=== PATIENT | female | born 1940 | race Caucasian/White ===

== ENCOUNTER 2021-02-28 16:28 | Emergency (ER) | payer MEDICARE, SELFPAY ==
--- NOTE | ~2021-02-28 | CT_ITS ---
EXAMINATION: CT ANGIOGRAM OF THE CHEST WITH AND WITHOUT CONTRAST (CT PULMONARY ANGIOGRAM FOR PE) CLINICAL INFORMATION: Shortness of breath and chest pain. COMPARISON: None. TECHNIQUE: Prior to contrast administration, noncontrast localization images were obtained. Subsequently, multidetector volumetric imaging was performed from the thoracic inlet to below the diaphragms following the administration of 71 mL Omnipaque 350 intravenous contrast. No contrast reaction reported Sagittal, coronal, and MIP oblique sagittal reformatted images were obtained on the CT workstation, uploaded to PACS, and reviewed. This CT examination was performed using dose optimization techniques as appropriate, variously including the following: *Automated exposure control *Adjustment of mA and/or kV according to patient size (this includes techniques or standardized protocols for targeted exams where dose is matched to indication/reason for exam; i.e. extremities or head) *Use of iterative reconstruction technique Total exam dose-length product 445 mGy-cm FINDINGS: QUALITY OF STUDY/CONTRAST BOLUS: Suboptimal. Evaluation is limited due to motion. Furthermore, evaluation of segmental and subsegmental branches is not ideal due to obscuration from overlying airspace opacities. PULMONARY ARTERIES: No central pulmonary emboli. As above, evaluation of segmental branches is suboptimal. The main pulmonary trunk measures up to 3 cm. The main right pulmonary artery measures up to 2.7 cm and the left main pulmonary artery measures 2.3 cm. THORACIC AORTA: No aneurysm or dissection. Atherosclerotic disease. LUNG: There is advanced paraseptal emphysema with an upper lobe predominance and large subpleural bullae. There is bronchial wall thickening, mosaic attenuation of lung parenchyma and peripheral reticular opacities. There is irregular thickening of the pleura in the right upper lobe extending into the mediastinal pleura with associated calcifications. A few other more discrete areas of pleural nodularity/thickening are identified, for instance medially in the right lung base on image 34 of series 5 and laterally in the left upper lobe on image 10 of series 5 with an associated calcification. There are multiple pulmonary nodules, for example a 0.8 cm pulmonary nodule in the right middle lobe on image 25, a 1 cm pulmonary nodule in the right lung base on image 32 and a 1 cm pulmonary nodule in the right lung base abutting the diaphragm on image 33 (series 5). No pneumothorax. There are layering mucous secretions in the trachea. MEDIASTINUM: Cardiomegaly. No pericardial effusion. Right mediastinal and right hilar lymphadenopathy for instance measuring up to 1.6 cm adjacent to the right lower trachea (5:16) and 1.6 cm in the right hilar region (5:21). No evidence of septal bowing or right heart strain. CHEST WALL/AXILLA: No axillary or internal mammary lymphadenopathy. OSSEOUS STRUCTURES: No acute or suspicious osseous abnormality. UPPER ABDOMEN: There are multiple hypodense liver lesions, for instance the largest approximately measuring up to 7.1 cm in image 40 of series 5. No reflux of contrast into the hepatic veins to suggest elevated right heart pressures. CT/CT angio chest PE protocol IMPRESSION: No central pulmonary emboli. As above, evaluation of segmental and subsegmental branches is limited due to motion and overlying parenchymal abnormalities. No evidence of increased right-sided heart pressures. Irregular nodular thickening of the pleura at multiple sites, more pronounced in the right upper lobe with also multiple pulmonary nodules. These findings are concerning for a neoplastic process, possible pleural in origin with metastatic disease to the lung parenchyma or vice versa with a right apical lung mass with pleural extension. It is difficult to accurately establish the primary neoplasia. There is mediastinal and hilar lymphadenopathy, concerning for metastatic disease. Multiple hepatic hypodensities are also worrisome for metastatic disease. VTE: negative
--- NOTE | 2021-02-28 18:18 | ECG_ITS ---
Test Reason : Chest Pain Blood Pressure : / mmHG Vent. Rate : 077 BPM Atrial Rate : 077 BPM P-R Int : 220 ms QRS Dur : 084 ms QT Int : 376 ms P-R-T Axes : 069 -13 018 degrees QTc Int : 425 ms Sinus rhythm with 1st degree A-V block Left axis deviation Abnormal ECG No previous ECGs available Referred By: Kaycee Prince Electronically Signed By:KATTY BATRES MD
[2021-02-28 18:25] VITALS: PULSE 74; O2SAT 98; BMI 38.9
--- NOTE | 2021-02-28 18:39 | ED.SOB ---
HPI - SOB/Dyspnea General Chief Complaint: Dyspnea Stated Complaint: Chest pain/?Pulmonary embolism Time Seen by Provider: 02/28/21 18:17 Source: patient and family Mode of arrival: ambulatory Limitations: no limitations History of Present Illness HPI Narrative: 80-year-old female with a past medical history of COPD, p.r.n. oxygen at home, insulin-dependent diabetes, hypertension, hyperlipidemia here with shortness of breath increasing over the last week with right-sided chest pain. Patient tells me she has had this shortness of breath and chest pain for several months. She did have a CT scan of her chest 1 week ago without contrast which showed 2 right-sided pulmonary nodules. Her primary care doctor is arranging outpatient biopsies of the site. Over the last week increasing pain and shortness of breath. Unrelieved with Motrin Tylenol home. No cough, leg swelling or pain. Related Data Home Medications Medication Instructions Recorded Confirmed citalopram 20 mg tablet 2 tab PO DAILY 02/28/21 02/28/21 glipizide 5 mg tablet 2 tab PO BID 02/28/21 02/28/21 insulin glargine 100 unit/mL (3 48 unit SUBCUT BEDTIME 02/28/21 02/28/21 mL) subcutaneous pen (Lantus Solostar U-100 Insulin) ipratropium 0.5 mg-albuterol 3 mg 3 ml INHALATION QID 02/28/21 02/28/21 (2.5 mg base)/3 mL nebulization soln irbesartan 75 mg tablet 1 tab PO DAILY 02/28/21 02/28/21 metformin 500 mg tablet,extended 2 tab PO BID 02/28/21 02/28/21 release 24 hr montelukast 10 mg tablet 1 tab PO QPM 02/28/21 02/28/21 oxybutynin chloride 5 mg tablet 1 tab PO TID PRN 02/28/21 02/28/21 pantoprazole 40 mg tablet,delayed 1 tab PO DAILY 02/28/21 02/28/21 release pravastatin 40 mg tablet 1 tab PO DAILY 02/28/21 02/28/21 tiotropium bromide 2.5 2 puff PO DAILY 02/28/21 02/28/21 mcg/actuation mist for inhalation (Spiriva Respimat) Previous Rx's Medication Instructions Recorded oxycodone-acetaminophen 5 mg-325 1 tab PO Q6H PRN #15 tab 02/28/21 mg tablet (Percocet) Allergies Allergy/AdvReac Type Severity Reaction Status Date / Time No Known Drug Allergies Allergy Unknown Verified 02/28/21 19:46 Review of Systems Review of Systems: Yes all other systems are reviewed and are negative Constitutional: Constitutional: Reports no additional constitutional complaints, Denies body ache(s), Denies chills, Denies fever(s), Denies headache(s) and Denies weakness Eyes: Eyes: Reports no additional eye complaints and Denies change in vision ENT: Reports system reviewed and no additional complaints, except as documented, Denies dizziness, Denies headache(s), Denies nasal congestion, Denies nasal discharge and Denies neck pain Cardiovascular: Cardiovascular: Reports no additional cardiovascular complaints, Reports chest pain, Denies leg edema and Reports dyspnea Respiratory: Respiratory: Reports no additional respiratory complaints, Denies cough and Reports dyspnea Gastrointestinal: Gastrointestinal: Reports no additional gastrointestinal complaints, Denies abdominal pain, Denies diarrhea, Denies nausea and Denies vomiting Genitourinary: Genitourinary: Reports no additional female genitourinary complaints and Denies urinary incontinence Musculoskeletal: Musculoskeletal: Reports no additional musculoskeletal complaints, Denies back pain, Denies arthralgias, Denies joint swelling, Denies neck pain, Denies numbness and Denies tingling Integumentary/Breasts: Skin/Breast: Reports system reviewed and no additional complaints, except as docu and Denies rash Neurologic: Reports system reviewed and no additional complaints, except as documented, Denies Abnormal speech present, Denies dizziness, Denies headache(s), Denies numbness, Denies tingling and Denies weakness [facility] Past Medical History Attestation statement: The following information was validated with the patient. Source: old records reviewed and nursing notes reviewed Medical History COPD (chronic obstructive pulmonary disease) Diabetes mellitus, type 2 Hypertension Surgical History History of section Social History Social History Advance Directives: Yes Advance Directives Information Provided: No Advance Directives on File: No Physical Exam Vital Signs: Vital Signs: Last Vital Signs Pulse 74 02/28/21 18:25 Pulse Ox 98 02/28/21 18:25 Oxygen Flow Rate 2 02/28/21 18:25 Body Mass Index 38.9 Const: General: cooperative, healthy appearing, comfortable and no acute distress Orientation/consciousness: patient oriented x3 Limitations: no limitations HENMT: Head: Yes normal to inspection Ears: hearing grossly normal bilaterally General nose exam: Normal external nose present Face and sinus: Yes normal facial exam Mouth: Normal oral and palatal mucosa present Throat: Yes posterior oropharynx normal Eyes: General: appearance normal, both eyes and all related structures Pupils: Equal, round and reactive pupils present Neck: Neck: Yes normal visual inspection Chest: Chest palpation & inspection: normal inspection of the chest Resp: Other: Tachypnea with a rate of 22-24 Auscultation: clear to auscultation bilaterally Cardio: Rate: regular rate Rhythm: regular rhythm Peripheral pulses: Peripheral pulses 2+ throughout GI: Inspection: Yes normal to inspection Palpation (GI): Soft to palpation and nontender Auscultation: normal bowel sounds Back/Spine/Pelvis: Thoracic/Lumbar Spine: thoracic and lumbar spine normal to inspection Skin: General skin exam: no rashes or lesions noted Neuro: General: patient oriented x3, no focal motor deficits and normal sensation to monofilament Cranial nerves: Yes Equal, round and reactive pupils present Cognition (Neuro): normal cognition Speech: No Abnormal speech present Gait exam (Neuro): Normal gait present Motor exam (neuro): 5/5 motor strength present throughout Extrem: General: Yes normal to inspection, Yes no pedal edema and Yes no calf tenderness Course Course Course Narrative: 80-year-old female here with acute on chronic shortness of breath right-sided chest pain over the last week unrelieved with [id number] medications. Patient has known right-sided pulmonary nodules and is pending outpatient appointment to have the areas biopsy. On arrival the patient is tachypneic with a rate of 22-24. Her oxygen saturations are okay on room air. Clinically no signs or symptoms concerning for DVT. Will check chest x-ray, EKG, labs, CTA 2130- CT chest shows No central pulmonary emboli. As above, evaluation of segmental and subsegmental branches is limited due to motion and overlying parenchymal abnormalities. ? No evidence of increased right-sided heart pressures. ? Irregular nodular thickening of the pleura at multiple sites, more pronounced in the right upper lobe with also multiple pulmonary nodules. These findings are concerning for a neoplastic process, possible pleural in origin with metastatic disease to the lung parenchyma or vice versa with a right apical lung mass with pleural extension. It is difficult to accurately establish the primary neoplasia. ? There is mediastinal and hilar lymphadenopathy, concerning for metastatic disease. ? Multiple hepatic hypodensities are also worrisome for metastatic disease. - patient has supplemental oxygen at home. Her RA saturation is 96%. She is feeling improved after 1 dose of morphine here. family was called and they will come to the ER so we can discuss the images. 2144- Spoke at length with patient and her granddaughter about findings on CT scan. the patient's goal is to be home with her family and she does not want to be placed in a short-term rehab or admitted to the hospital. She had a dose of p.o. oxycodone here which does help her pain and therefore will send her home with a prescription for this. 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 MDM - SOB/Dyspnea MDM Narrative Medical decision making narrative: COPD exacerbation, PE, pneumonia, viral syndrome Medical Records Attestation: I reviewed the patient's medical records. Lab Data Attestation: I reviewed the patient's lab results. Result diagrams: 02/28/21 18:59 02/28/21 18:59 Labs: Lab Results 02/28/21 02/28/21 02/28/21 Range/Units 18:59 18:59 18:59 WBC 9.9 (4.8-10.8) X10*3/uL RBC 3.79 L (4.20-5.50) X10*6/uL Hgb 9.1 L (12.0-16.0) g/dl Hct 30.3 L (37.0-47.0) % MCV 79.9 L (80.0-98.0) fL MCH 24.0 L (27.0-33.0) pg MCHC 30.0 L (31.0-35.0) g/dl RDW 15.7 (11.0-16.0) % Plt Count 327 (160-400) X10*3/uL MPV 9.8 (9.4-12.3) fL Immature Gran % (Auto) 0.2 (0.0-0.4) % Neut % (Auto) 54.9 (45-73) % Lymph % (Auto) 33.4 (20-40) % Ross % (Auto) 6.7 (2-11) % Eos % (Auto) 4.2 H (0-4) % Baso % (Auto) 0.6 (0-2) % Lymph # (Auto) 3.3 (1.2-4.9) X10*3/uL Ross # (Auto) 0.7 (0.1-1.2) X10*3/uL Eos # (Auto) 0.4 (0.0-0.4) X10*3/uL Baso # (Auto) 0.1 (0.0-0.2) X10*3/uL Abs Immat Gran (auto) 0.02 (0.00-0.03) X10*3/uL Absolute Neuts (auto) 5.4 (2.0-8.3) x10*3/uL Absolute Nucleated RBC 0.000 (0.0-0.012) X10*3/uL Nucleated RBC % (auto) 0.0 (0.0-0.2) /100WBC PT 12.2 (9.9-13.0) SEC INR 1.1 (0.9-1.1) Sodium 142 (135-145) mmol/L Potassium 4.6 (3.3-5.1) mmol/L Chloride 109 H (96-108) mmol/L Carbon Dioxide 23 (22-29) mmol/L Anion Gap 15 (12-20) BUN 18 H (9-16) mg/dL Creatinine 0.76 (0.5-1.4) mg/dL Estim Creat Clear Calc 67.7 Estimated GFR > 60 Random Glucose 75 (60-115) mg/dL Calcium 10.0 (8.4-10.2) mg/dL Magnesium 1.9 (1.6-2.6) mg/dL Total Bilirubin 0.2 (0.0-1.0) mg/dL Direct Bilirubin < 0.2 (0.0-0.5) mg/dL AST 19 (5-31) U/L ALT 15 (0-31) U/L Alkaline Phosphatase 71 (39-117) U/L Troponin I High Sens (<3.5-17.0) ng/L Total Protein 7.1 (6.5-8.0) g/dL Albumin 3.6 (3.5-5.0) g/dL COVID-19 (THEA) (Negative) COVID-19 Clin Com 02/28/21 02/28/21 Range/Units 18:59 18:59 WBC (4.8-10.8) X10*3/uL RBC (4.20-5.50) X10*6/uL Hgb (12.0-16.0) g/dl Hct (37.0-47.0) % MCV (80.0-98.0) fL MCH (27.0-33.0) pg MCHC (31.0-35.0) g/dl RDW (11.0-16.0) % Plt Count (160-400) X10*3/uL MPV (9.4-12.3) fL Immature Gran % (Auto) (0.0-0.4) % Neut % (Auto) (45-73) % Lymph % (Auto) (20-40) % Ross % (Auto) (2-11) % Eos % (Auto) (0-4) % Baso % (Auto) (0-2) % Lymph # (Auto) (1.2-4.9) X10*3/uL Ross # (Auto) (0.1-1.2) X10*3/uL Eos # (Auto) (0.0-0.4) X10*3/uL Baso # (Auto) (0.0-0.2) X10*3/uL Abs Immat Gran (auto) (0.00-0.03) X10*3/uL Absolute Neuts (auto) (2.0-8.3) x10*3/uL Absolute Nucleated RBC (0.0-0.012) X10*3/uL Nucleated RBC % (auto) (0.0-0.2) /100WBC PT (9.9-13.0) SEC INR (0.9-1.1) Sodium (135-145) mmol/L Potassium (3.3-5.1) mmol/L Chloride (96-108) mmol/L Carbon Dioxide (22-29) mmol/L Anion Gap (12-20) BUN (9-16) mg/dL Creatinine (0.5-1.4) mg/dL Estim Creat Clear Calc Estimated GFR Random Glucose (60-115) mg/dL Calcium (8.4-10.2) mg/dL Magnesium (1.6-2.6) mg/dL Total Bilirubin (0.0-1.0) mg/dL Direct Bilirubin (0.0-0.5) mg/dL AST (5-31) U/L ALT (0-31) U/L Alkaline Phosphatase (39-117) U/L Troponin I High Sens 4.4 (<3.5-17.0) ng/L Total Protein (6.5-8.0) g/dL Albumin (3.5-5.0) g/dL COVID-19 (THEA) Negative (Negative) COVID-19 Clin Com See Note Imaging Data CT scan - chest: Attestation: I personally reviewed and interpreted this imaging study as follows: Radiologist's impression: No central pulmonary emboli. As above, evaluation of segmental and subsegmental branches is limited due to motion and overlying parenchymal abnormalities. ? No evidence of increased right-sided heart pressures. ? Irregular nodular thickening of the pleura at multiple sites, more pronounced in the right upper lobe with also multiple pulmonary nodules. These findings are concerning for a neoplastic process, possible pleural in origin with metastatic disease to the lung parenchyma or vice versa with a right apical lung mass with pleural extension. It is difficult to accurately establish the primary neoplasia. ? There is mediastinal and hilar lymphadenopathy, concerning for metastatic disease. ? Multiple hepatic hypodensities are also worrisome for metastatic disease. ECG Data Attestation: I personally reviewed and interpreted this ECG as follows: ECG interpretation date: 02/28/21 ECG interpretation time: 17:01 Interpretation: sinus rhythm with a first-degree AV block, normal QRS, normal QT, Discharge Plan Discharge Clinical Impression: Abnormal CT scan, chest Patient Disposition: Home, Self-Care Instructions: Computed Tomography Scan (ED) Additional Instructions: Your CT scan shows a mass in the right side of the chest that is concerning for cancer. You also has lymph nodes around it and several lesions on the liver that are concerning for cancer you need to follow-up with Oncology use your supplemental oxygen at home as needed return here if you feel like her pain is not well controlled at home or if you have increasing oxygen requirement Prescriptions: New oxycodone-acetaminophen [Percocet] 5-325 mg tablet 1 tab PO Q6H PRN (Reason: pain) Qty: 15 RF: 0 No Action ipratropium-albuterol 0.5 mg-3 mg(2.5 mg base)/3 mL solution for nebulization 3 ml inhalation QID RF: 0 pravastatin 40 mg tablet 1 tab PO DAILY RF: 0 citalopram 20 mg tablet 2 tab PO DAILY RF: 0 pantoprazole 40 mg tablet,delayed release (DR/EC) 1 tab PO DAILY RF: 0 irbesartan 75 mg tablet 1 tab PO DAILY RF: 0 montelukast 10 mg tablet 1 tab PO QPM RF: 0 oxybutynin chloride 5 mg tablet 1 tab PO TID PRN (Reason: URINARY SYMPTOMS) RF: 0 metformin 500 mg tablet extended release 24 hr 2 tab PO BID RF: 0 glipizide 5 mg tablet 2 tab PO BID RF: 0 Lantus Solostar U-100 Insulin 100 unit/mL (3 mL) insulin pen 48 unit subcut BEDTIME RF: 0 Spiriva Respimat 2.5 mcg/actuation mist 2 puff PO DAILY RF: 0 Referrals: Ingrid Mendoza MD [Physician] - 2 days Interventions: ED Discharge Assessment Last Done: 02/28/21 22:45 Discharge Date/Time: 02/28/21 22:45
[2021-02-28 19:08] LABS: MANUAL DIFF FLAG NO
[2021-02-28 19:16] LABS: Basophils Absolute Auto 0.1 X10*3/uL (0.0-0.2); Basophils Percent Auto 0.6 % (0-2); Eosinophils Absolute Auto 0.4 X10*3/uL (0.0-0.4); Eosinophils Percent Auto 4.2 % (0-4); Hematocrit 30.3 % (37.0-47.0); Hemoglobin 9.1 g/dl (12.0-16.0); Imm Gran Abs Auto 0.02 X10*3/uL (0.00-0.03); Imm Gran Pct Auto 0.2 % (0.0-0.4); Lymphocytes Absolute Auto 3.3 X10*3/uL (1.2-4.9); Lymphocytes Percent Auto 33.4 % (20-40); Mean Corpuscular Volume 79.9 fL (80.0-98.0); Mean Platelet Volume 9.8 fL (9.4-12.3); Monocytes Absolute Auto 0.7 X10*3/uL (0.1-1.2); Monocytes Percent Auto 6.7 % (2-11); Neutrophils Absolute Auto 5.4 x10*3/uL (2.0-8.3); Neutrophils Percent Auto 54.9 % (45-73); Platelet Count 327 X10*3/uL (160-400); Red Blood Count 3.79 X10*6/uL (4.20-5.50); Red Cell Distribution Width 15.7 % (11.0-16.0); White Blood Count 9.9 X10*3/uL (4.8-10.8)
[2021-02-28 19:19] LABS: INTERNATIONAL NORM RATIO 1.1 (0.9-1.1); Prothrombin Time 12.2 SEC (9.9-13.0)
[2021-02-28] MEDS: Morphine Sulfate 4 MG/ML CARTRIDGE IVPUSH (19:21)
[2021-02-28 19:23] LABS: COVID-19 Test Negative (Negative)
[2021-02-28 19:35] LABS: Alanine Aminotransferase 15 U/L (0-31); Albumin Level 3.6 g/dL (3.5-5.0); Alkaline Phosphatase 71 U/L (39-117); Anion Gap 15 (12-20); Aspartate Amino Transferase 19 U/L (5-31); Bilirubin Direct < 0.2 mg/dL (0.0-0.5); Bilirubin Total 0.2 mg/dL (0.0-1.0); Blood Urea Nitrogen 18 mg/dL (9-16); Carbon Dioxide 23 mmol/L (22-29); Chloride 109 mmol/L (96-108); Creatinine Clr Calc Pharmacy 67.7; Estimated Glomerular Filt Rate > 60; Glucose Random 75 mg/dL (60-115); Magnesium 1.9 mg/dL (1.6-2.6); Potassium 4.6 mmol/L (3.3-5.1); Sodium 142 mmol/L (135-145); Total Protein 7.1 g/dL (6.5-8.0)
[2021-02-28 19:38] LABS: Troponin-I High Sensitivity 4.4 ng/L (<3.5-17.0)
[2021-02-28] MEDS: iohexoL 350 MG/ML 100 ML INFUS..BTL IV (20:30)
--- NOTE | 2021-02-28 20:52 | PHA.MEDREC ---
Pharmacy Consult ? Medication Reconciliation Pharmacy has completed the medication reconciliation.
[2021-02-28] MEDS: Acetaminophen 325 MG TABLET 650 MG PO (22:26)
[2021-02-28] MEDS: oxyCODONE HCl Immed Release 5 MG TABLET PO (22:26)
== END 2021-02-28 22:45 | disposition home or self-care (01) ==
PROVIDERS: Nurse Practitioner Family; Emergency Provider Emergency Medicine; PCP Internal Medicine
DX: R07.9 Chest pain, unspecified (principal); R91.8 Other nonspecific abnormal finding of lung field; K76.9 Liver disease, unspecified; R06.82 Tachypnea, not elsewhere classified; Z20.822 Contact with and (suspected) exposure to COVID-19; E11.9 Type 2 diabetes mellitus without complications; I10 Essential (primary) hypertension; E78.5 Hyperlipidemia, unspecified; J44.9 Chronic obstructive pulmonary disease, unspecified; Z99.81 Dependence on supplemental oxygen; Z79.4 Long term (current) use of insulin; Z79.02 Long term (current) use of antithrombotics/antiplatelets; Z79.899 Other long term (current) drug therapy
CPT/HCPCS: 36415; 71275; 80048; 80076; 83735; 84484; 85025; 85610; 87635; 93005; 96374; 99283; 99284; J2270; Q9967

== ENCOUNTER 2021-03-11 07:11 | Day surgery (SDC) | payer MEDICARE, SELFPAY ==
--- NOTE | ~2021-03-11 | US_ITS ---
EXAMINATION: ULTRASOUND-GUIDED LIVER BIOPSY CLINICAL INFORMATION: Liver lesions. History of lung and breast cancer. COMPARISON: Previous chest CTA February 2021. TECHNIQUE: Procedure and risks and benefits including bleeding and infection were discussed with the patient and informed consent was obtained. The patient was positioned in the semiupright position and turned slightly to the left. The right upper quadrant was prepped and draped in the usual sterile fashion. The skin and soft tissues were anesthetized with 1% lidocaine plain. Using ultrasound guidance and a coaxial system, access to the lesion high in the right lobe of the liver was obtained. Four 20-gauge core biopsies were obtained. One additional 22-gauge FNA specimen was also obtained. The patient received Versed 1 mg and fentanyl 50 mcg intravenously during the procedure. Conscious sedation was provided by registered nurse under my direct supervision using continuous hemodynamic monitoring. Total sedation time was 20 minutes. FINDINGS: There is a 6.8 x 6 x 5.6 cm hypoechoic lesion in the high right lobe of the liver that was targeted for biopsy and fine-needle aspiration. US/US biopsy liver IMPRESSION: Ultrasound-guided liver biopsy and fine-needle aspiration.
[2021-03-11 07:49] VITALS: BMI 38.9
[2021-03-11 08:03] LABS: Glucose, Whole Blood 74 mg/dL (60-115)
[2021-03-11 09:20] LABS: Glucose, Whole Blood 106 mg/dL (60-115)
--- NOTE | 2021-03-11 10:10 | HO.RADPN ---
RADIOLOGY Narrative Narrative: right lobe liver 20 g core biopsy and 22 g fna. no complication.
[2021-03-11 10:22] VITALS: BP 137/64; PULSE 62; RESP 16; TEMP 37; O2SAT 98
[2021-03-11 10:37] VITALS: BP 135/62; PULSE 72; RESP 16; O2SAT 97
[2021-03-11 11:07] VITALS: BP 141/59; PULSE 80; RESP 16; O2SAT 97
[2021-03-11 11:37] VITALS: BP 154/58; PULSE 78; RESP 16; O2SAT 97
[2021-03-11 12:06] VITALS: BP 144/56; PULSE 90; RESP 22; TEMP 36.7; O2SAT 95
== END 2021-03-11 12:39 | disposition home or self-care (01) ==
PROVIDERS: Radiology Diagnostic Radiology; PCP Internal Medicine; Visit Provider Internal Medicine
DX: C78.7 Secondary malignant neoplasm of liver and intrahepatic bile duct (principal); C34.90 Malignant neoplasm of unspecified part of unspecified bronchus or lung; R16.0 Hepatomegaly, not elsewhere classified; J44.9 Chronic obstructive pulmonary disease, unspecified; I10 Essential (primary) hypertension; E11.9 Type 2 diabetes mellitus without complications; Z79.4 Long term (current) use of insulin; Z79.899 Other long term (current) drug therapy; Z79.51 Long term (current) use of inhaled steroids; Z87.891 Personal history of nicotine dependence
CPT/HCPCS: 47000; 76942; 82947; 88173; 88305; 88307; 88313; 88341; 88342; 99152; 99153; J2250; J3010

== ENCOUNTER 2021-03-16 10:37 | Outpatient (REF) | payer MEDICARE, SELFPAY ==
--- NOTE | ~2021-03-16 | US_ITS ---
EXAMINATION: US VENOUS ULTRASOUND WITH DOPPLER LOWER EXTREMITY, LEFT CLINICAL INFORMATION: Metastatic lung cancer COMPARISON: Swelling and skin changes. TECHNIQUE: Ultrasound of the deep veins is performed from the hip to the calf with compression sonography and color and pulse Doppler assessment. Spectral analysis with color-flow imaging is performed. FINDINGS: There is normal venous compression and respiratory variation and augmented flow. The visualized common femoral vein, superficial femoral vein, profunda femoral vein, popliteal vein are patent. The calf veins are not well visualized. There is no Singh's cyst. US/US venous duplex LE LT IMPRESSION: Limited exam. No DVT demonstrated in the left lower extremity. Calf veins are not well visualized.
== END 2021-03-16 10:38 | disposition home or self-care (01) ==
LOC: HO.US 10:37
PROVIDERS: Visit Provider Internal Medicine
DX: M79.89 Other specified soft tissue disorders (principal); C34.90 Malignant neoplasm of unspecified part of unspecified bronchus or lung
CPT/HCPCS: 93971

== ENCOUNTER 2021-03-23 11:14 | Observation (INO) | payer MEDICARE, SELFPAY ==
[2021-03-23] VITALS (9 sets, daily range): BP systolic 122–172; BP diastolic 41–77; PULSE 60–75; RESP 12–19; TEMP 36.4–36.9; O2SAT 96–98; BMI 38.6
--- NOTE | ~2021-03-23 | XR_ITS ---
EXAMINATION: XR CHEST CLINICAL INFORMATION: Syncope COMPARISON: CT scan of February 28, 2021 TECHNIQUE: AP portable view of the chest was obtained. FINDINGS: There is right apical pleural thickening seen as well as a right upper lobe density consistent with mass. No pneumothorax identified. No significant pleural effusion. There is some left basilar disease present likely related to atelectasis. There is emphysematous changes seen within the upper lobes bilaterally. Heart normal size. No evidence of pulmonary edema. XR/XR chest 1V IMPRESSION: Right upper lobe pleural thickening and question mass. Left base disease likely related to atelectasis. Emphysematous change bilaterally.
--- NOTE | 2021-03-23 11:25 | ED_ITS ---
HPI - General Adult General Chief complaint: General Medical Stated complaint: Syncope Time Seen by Provider: 03/23/21 11:19 Source: patient Mode of arrival: ambulatory Limitations: no limitations History of Present Illness HPI narrative: 80-year-old female came in from outpatient chemotherapy for feeling dizzy and that being diaphoretic. 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 Patient in the ED is back to her baseline normal, blood sugar measured 55. Related Data Home Medications Medication Instructions Recorded Confirmed citalopram 20 mg tablet 2 tab PO DAILY 02/28/21 03/17/21 glipizide 5 mg tablet 2 tab PO BID 02/28/21 03/17/21 insulin glargine 100 unit/mL (3 48 unit SUBCUT BEDTIME 02/28/21 03/17/21 mL) subcutaneous pen (Lantus Solostar U-100 Insulin) ipratropium 0.5 mg-albuterol 3 mg 3 ml INHALATION QID 02/28/21 03/17/21 (2.5 mg base)/3 mL nebulization soln irbesartan 75 mg tablet 1 tab PO DAILY 02/28/21 03/17/21 metformin 500 mg tablet,extended 2 tab PO BID 02/28/21 03/17/21 release 24 hr montelukast 10 mg tablet 1 tab PO QPM 02/28/21 03/17/21 oxybutynin chloride 5 mg tablet 1 tab PO TID PRN 02/28/21 03/17/21 pantoprazole 40 mg tablet,delayed 1 tab PO DAILY 02/28/21 03/17/21 release pravastatin 40 mg tablet 1 tab PO DAILY 02/28/21 03/17/21 tiotropium bromide 2.5 2 puff PO DAILY 02/28/21 03/17/21 mcg/actuation mist for inhalation (Spiriva Respimat) Previous Rx's Medication Instructions Recorded ondansetron 8 mg disintegrating 8 mg PO Q8H PRN #60 tab 03/15/21 tablet oxycodone 5 mg tablet 5 mg PO Q4H PRN #60 tab 03/22/21 Allergies Allergy/AdvReac Type Severity Reaction Status Date / Time No Known Drug Allergies Allergy Unknown Verified 03/11/21 07:49 Review of Systems Review of Systems: All other systems are reviewed and are negative Constitutional: Reports as per HPI and Reports no additional constitutional complaints Eyes: Reports as per HPI and Reports no additional eye complaints Reports system reviewed and no additional complaints, except as documented Cardiovascular: Reports as per HPI and Reports no additional cardiovascular complaints Respiratory: Reports as per HPI and Reports no additional respiratory complaints Gastrointestinal: Reports as per HPI and Reports no additional gastrointestinal complaints Genitourinary: Reports no additional female genitourinary complaints Musculoskeletal: Reports no additional musculoskeletal complaints Skin/Breast: Reports system reviewed and no additional complaints, except as docu Psychiatric: Reports no additional psychiatric complaints Endocrine: Reports no additional endocrine complaints Hematologic/Lymphatic: Reports no additional hematologic/lymphatic complaints Allergic/Immunologic: Reports no additional allergic/immunologic complaints Reports system reviewed and no additional complaints, except as documented and Reports Abnormal speech present [facility] Past Medical History Medical History COPD (chronic obstructive pulmonary disease) Diabetes mellitus, type 2 Hypertension Surgical History History of section Family History Family History Mother Breast cancer Diabetes HTN (hypertension) Father Lung cancer Social History Social History Alcohol intake: former Patient Tobacco Use Status: Former Tobacco user Tobacco use type: Cigarette Advance Directives: No Advance Directives Information Provided: No Physical Exam Vital Signs: Vital Signs: Last Vital Signs Temp 98 F 03/23/21 11:18 Pulse 61 03/23/21 12:08 Resp 18 03/23/21 12:08 BP 149/59 H 03/23/21 12:08 Pulse Ox 96 03/23/21 12:08 Oxygen Flow Rate 2 03/23/21 11:18 BMI result Body Mass Index 38.6 Vital signs have been reviewed as appeared to be correct. Blood pressure normal. Heart rate normal. Respiration rate normal. Temperature normal. Oxygen saturation normal. Appearance: Alert. Oriented X3. No acute distress. Head: Normal external exam. Normocephalic. Atraumatic. No Ramos signs noted. No raccoon eyes noted Eyes: PERRLA. EOMI. Conjunctiva and sclera normal. Eyelids normal. ENT: TM's Normal. Pharynx normal. Uvula midline. Moist mucous membranes. No trismus noted. No drooling noted. No muffled voice noted. Neck: Normal inspection. Neck supple. FROM. No adenopathy. Thyroid Normal. No meningeal signs. No neck mass noted. CVS: Normal heart rate and rhythm. Heart sound normal. No murmurs noted. Pulses normal throughout. Respiratory: No respiratory distress. Painless inspiration. Breath sounds normal. No wheezes/rales/rhonchi noted. Chest nontender. No accessory muscle usage noted or decreased air movement noted. Abdomen: Soft and nontender. Bowel sounds normal in all 4 quadrants. No distention noted. No organomegaly noted. No visible injury noted. Back: No CVA tenderness. Full range of motion noted. Skin: Skin warm and dry. Normal skin color. Normal skin turgor. No rashes/lesions/lacerations noted. Extremities: No lower extremity edema. Extremities exhibit normal range of motion. Extremities nontender. Neuro: Oriented X 3. Cranial nerve exam: II-XII are grossly intact No motor deficit. No sensory deficit. Reflexes normal. Course Course Course Narrative: Assessment and plan. 80-year-old female with history of diabetes controlled with insulin/glip izide/Glucophage, patient presented from the oncology office after having symptoms of hypoglycemia and found to have sugar of 32, patient partially improved after was given juice, patient was given a regular diet with high carbohydrate in the emergency department patient tolerated it well, and postp randial blood sugar remained low, patient will be started on D5W as a maintenance IV, patient will be observed in the hospital for persistent hypoglycemia which is likely due to glipizide and or long-acting insulin that she takes at night. No source of infection to explain otherwise hypoglycemia. Medical Decision Making Medical Records Medical records reviewed: Yes I reviewed the patient's medical records. Lab Data Lab results reviewed: Yes I reviewed the patient's lab results. Result diagrams: 03/23/21 11:52 03/23/21 11:52 Labs: Lab Results 03/23/21 03/23/21 03/23/21 Range/Units 11:52 11:52 11:52 WBC 11.6 H (4.8-10.8) X10*3/uL RBC 4.22 (4.20-5.50) X10*6/uL Hgb 10.3 L (12.0-16.0) g/dl Hct 34.1 L (37.0-47.0) % MCV 80.8 (80.0-98.0) fL MCH 24.4 L (27.0-33.0) pg MCHC 30.2 L (31.0-35.0) g/dl RDW 17.3 H (11.0-16.0) % Plt Count 286 (160-400) X10*3/uL MPV 9.5 (9.4-12.3) fL Immature Gran % (Auto) 0.6 H (0.0-0.4) % Neut % (Auto) 72.8 (45-73) % Lymph % (Auto) 22.7 (20-40) % [place] % (Auto) 2.8 (2-11) % Eos % (Auto) 0.9 (0-4) % Baso % (Auto) 0.2 (0-2) % Lymph # (Auto) 2.6 (1.2-4.9) X10*3/uL [place] # (Auto) 0.3 (0.1-1.2) X10*3/uL Eos # (Auto) 0.1 (0.0-0.4) X10*3/uL Baso # (Auto) 0.0 (0.0-0.2) X10*3/uL Abs Immat Gran (auto) 0.07 H (0.00-0.03) X10*3/uL Absolute Neuts (auto) 8.5 H (2.0-8.3) x10*3/uL Absolute Nucleated RBC 0.000 (0.0-0.012) X10*3/uL Nucleated RBC % (auto) 0.0 (0.0-0.2) /100WBC Sodium 140 (135-145) mmol/L Potassium 4.2 (3.3-5.1) mmol/L Chloride 107 (96-108) mmol/L Carbon Dioxide 26 (22-29) mmol/L Anion Gap 11 L (12-20) BUN 20 H D (9-16) mg/dL Creatinine 0.78 (0.5-1.4) mg/dL Estim Creat Clear Calc 65.7 Estimated GFR > 60 POC Glucose (60-115) mg/dL Random Glucose 36 L* (60-115) mg/dL Calcium 9.7 D (8.4-10.2) mg/dL Total Bilirubin 0.3 (0.0-1.0) mg/dL Direct Bilirubin 0.2 (0.0-0.5) mg/dL AST 15 (5-31) U/L ALT 9 (0-31) U/L Alkaline Phosphatase 58 (39-117) U/L Troponin I High Sens 4.4 (<3.5-17.0) ng/L B-Natriuretic Peptide (<100) pg/mL Total Protein 7.2 (6.5-8.0) g/dL Albumin 3.5 (3.5-5.0) g/dL Lipase 41 (8-78) U/L COVID-19 (THEA) (Negative) COVID-19 Clin Com 03/23/21 03/23/21 03/23/21 Range/Units 11:52 11:52 12:48 WBC (4.8-10.8) X10*3/uL RBC (4.20-5.50) X10*6/uL Hgb (12.0-16.0) g/dl Hct (37.0-47.0) % MCV (80.0-98.0) fL MCH (27.0-33.0) pg MCHC (31.0-35.0) g/dl RDW (11.0-16.0) % Plt Count (160-400) X10*3/uL MPV (9.4-12.3) fL Immature Gran % (Auto) (0.0-0.4) % Neut % (Auto) (45-73) % Lymph % (Auto) (20-40) % [place] % (Auto) (2-11) % Eos % (Auto) (0-4) % Baso % (Auto) (0-2) % Lymph # (Auto) (1.2-4.9) X10*3/uL [place] # (Auto) (0.1-1.2) X10*3/uL Eos # (Auto) (0.0-0.4) X10*3/uL Baso # (Auto) (0.0-0.2) X10*3/uL Abs Immat Gran (auto) (0.00-0.03) X10*3/uL Absolute Neuts (auto) (2.0-8.3) x10*3/uL Absolute Nucleated RBC (0.0-0.012) X10*3/uL Nucleated RBC % (auto) (0.0-0.2) /100WBC Sodium (135-145) mmol/L Potassium (3.3-5.1) mmol/L Chloride (96-108) mmol/L Carbon Dioxide (22-29) mmol/L Anion Gap (12-20) BUN (9-16) mg/dL Creatinine (0.5-1.4) mg/dL Estim Creat Clear Calc Estimated GFR POC Glucose 55 L* (60-115) mg/dL Random Glucose (60-115) mg/dL Calcium (8.4-10.2) mg/dL Total Bilirubin (0.0-1.0) mg/dL Direct Bilirubin (0.0-0.5) mg/dL AST (5-31) U/L ALT (0-31) U/L Alkaline Phosphatase (39-117) U/L Troponin I High Sens (<3.5-17.0) ng/L B-Natriuretic Peptide 242 H (<100) pg/mL Total Protein (6.5-8.0) g/dL Albumin (3.5-5.0) g/dL Lipase (8-78) U/L COVID-19 (THEA) Negative (Negative) COVID-19 Clin Com See Note 03/23/21 Range/Units 13:08 WBC (4.8-10.8) X10*3/uL RBC (4.20-5.50) X10*6/uL Hgb (12.0-16.0) g/dl Hct (37.0-47.0) % MCV (80.0-98.0) fL MCH (27.0-33.0) pg MCHC (31.0-35.0) g/dl RDW (11.0-16.0) % Plt Count (160-400) X10*3/uL MPV (9.4-12.3) fL Immature Gran % (Auto) (0.0-0.4) % Neut % (Auto) (45-73) % Lymph % (Auto) (20-40) % [place] % (Auto) (2-11) % Eos % (Auto) (0-4) % Baso % (Auto) (0-2) % Lymph # (Auto) (1.2-4.9) X10*3/uL [place] # (Auto) (0.1-1.2) X10*3/uL Eos # (Auto) (0.0-0.4) X10*3/uL Baso # (Auto) (0.0-0.2) X10*3/uL Abs Immat Gran (auto) (0.00-0.03) X10*3/uL Absolute Neuts (auto) (2.0-8.3) x10*3/uL Absolute Nucleated RBC (0.0-0.012) X10*3/uL Nucleated RBC % (auto) (0.0-0.2) /100WBC Sodium (135-145) mmol/L Potassium (3.3-5.1) mmol/L Chloride (96-108) mmol/L Carbon Dioxide (22-29) mmol/L Anion Gap (12-20) BUN (9-16) mg/dL Creatinine (0.5-1.4) mg/dL Estim Creat Clear Calc Estimated GFR POC Glucose 52 L* (60-115) mg/dL Random Glucose (60-115) mg/dL Calcium (8.4-10.2) mg/dL Total Bilirubin (0.0-1.0) mg/dL Direct Bilirubin (0.0-0.5) mg/dL AST (5-31) U/L ALT (0-31) U/L Alkaline Phosphatase (39-117) U/L Troponin I High Sens (<3.5-17.0) ng/L B-Natriuretic Peptide (<100) pg/mL Total Protein (6.5-8.0) g/dL Albumin (3.5-5.0) g/dL Lipase (8-78) U/L COVID-19 (THEA) (Negative) COVID-19 Clin Com Imaging Data Chest x-ray: Attestation: I personally reviewed and interpreted this imaging study as follows: Radiologist's impression: Right upper lobe pleural thickening and question mass. ? Left base disease likely related to atelectasis. ? Emphysematous change bilaterally. ? Discharge Plan Discharge Clinical Impression: Hypoglycemia due to insulin, Hypoglycemia secondary to sulfonylurea Patient Disposition: Admitted As Inpatient Prescriptions: No Action ipratropium-albuterol 0.5 mg-3 mg(2.5 mg base)/3 mL solution for nebulization 3 ml inhalation QID RF: 0 pravastatin 40 mg tablet 1 tab PO DAILY RF: 0 citalopram 20 mg tablet 2 tab PO DAILY RF: 0 pantoprazole 40 mg tablet,delayed release (DR/EC) 1 tab PO DAILY RF: 0 irbesartan 75 mg tablet 1 tab PO DAILY RF: 0 montelukast 10 mg tablet 1 tab PO QPM RF: 0 oxybutynin chloride 5 mg tablet 1 tab PO TID PRN (Reason: URINARY SYMPTOMS) RF: 0 metformin 500 mg tablet extended release 24 hr 2 tab PO BID RF: 0 glipizide 5 mg tablet 2 tab PO BID RF: 0 Lantus Solostar U-100 Insulin 100 unit/mL (3 mL) insulin pen 48 unit subcut BEDTIME RF: 0 Spiriva Respimat 2.5 mcg/actuation mist 2 puff PO DAILY RF: 0 ondansetron 8 mg Tablet,Disintegrating 8 mg PO Q8H PRN (Reason: nausea) Qty: 60 RF: 3 oxycodone 5 mg Tablet 5 mg PO Q4H PRN (Reason: Pain) Qty: 60 RF: 0
--- NOTE | 2021-03-23 11:29 | ECG_ITS ---
Test Reason : syncope Blood Pressure : / mmHG Vent. Rate : 062 BPM Atrial Rate : 062 BPM P-R Int : 186 ms QRS Dur : 092 ms QT Int : 432 ms P-R-T Axes : 066 -04 022 degrees QTc Int : 438 ms Normal sinus rhythm Cannot rule out Anterior infarct , age undetermined Abnormal ECG When compared with ECG of 28-FEB-2021 17:01, [place] interval has decreased Referred By: Leonard Bernal Electronically Signed By:NURY SINHA MD
[2021-03-23 11:56] LABS: MANUAL DIFF FLAG NO
[2021-03-23 11:58] LABS: Basophils Percent Auto 0.2 % (0-2); Eosinophils Absolute Auto 0.1 X10*3/uL (0.0-0.4); Eosinophils Percent Auto 0.9 % (0-4); Hematocrit 34.1 % (37.0-47.0); Hemoglobin 10.3 g/dl (12.0-16.0); Imm Gran Abs Auto 0.07 X10*3/uL (0.00-0.03); Imm Gran Pct Auto 0.6 % (0.0-0.4); Lymphocytes Absolute Auto 2.6 X10*3/uL (1.2-4.9); Lymphocytes Percent Auto 22.7 % (20-40); Mean Corpuscular HGB Conc 30.2 g/dl (31.0-35.0); Mean Corpuscular Hemoglobin 24.4 pg (27.0-33.0); Mean Corpuscular Volume 80.8 fL (80.0-98.0); Mean Platelet Volume 9.5 fL (9.4-12.3); Monocytes Absolute Auto 0.3 X10*3/uL (0.1-1.2); Monocytes Percent Auto 2.8 % (2-11); Neutrophils Absolute Auto 8.5 x10*3/uL (2.0-8.3); Neutrophils Percent Auto 72.8 % (45-73); Platelet Count 286 X10*3/uL (160-400); Red Blood Count 4.22 X10*6/uL (4.20-5.50); Red Cell Distribution Width 17.3 % (11.0-16.0); White Blood Count 11.6 X10*3/uL (4.8-10.8)
[2021-03-23 12:16] LABS: COVID-19 Test Negative (Negative); IDNOW Serial# 08D9AD1C
[2021-03-23 12:22] LABS: Troponin-I High Sensitivity 4.4 ng/L (<3.5-17.0)
[2021-03-23 12:23] LABS: B Type Natriuretic Peptide 242 pg/mL (<100)
[2021-03-23 12:46] LABS: Alanine Aminotransferase 9 U/L (0-31); Albumin Level 3.5 g/dL (3.5-5.0); Alkaline Phosphatase 58 U/L (39-117); Anion Gap 11 (12-20); Aspartate Amino Transferase 15 U/L (5-31); Bilirubin Direct 0.2 mg/dL (0.0-0.5); Bilirubin Total 0.3 mg/dL (0.0-1.0); Blood Urea Nitrogen 20 mg/dL (9-16); Calcium 9.7 mg/dL (8.4-10.2); Carbon Dioxide 26 mmol/L (22-29); Chloride 107 mmol/L (96-108); Creatinine Clr Calc Pharmacy 65.7; Estimated Glomerular Filt Rate > 60; Glucose Random 36 mg/dL (60-115); Lipase 41 U/L (8-78); Potassium 4.2 mmol/L (3.3-5.1); Sodium 140 mmol/L (135-145); Total Protein 7.2 g/dL (6.5-8.0)
[2021-03-23 12:51] LABS: Glucose, Whole Blood 55 mg/dL (60-115)
[2021-03-23 13:11] LABS: Glucose, Whole Blood 52 mg/dL (60-115)
[2021-03-23] MEDS: Dextrose 5 % 1,000 ML 100 ML IVCONT (13:22)
[2021-03-23 13:49] LABS: Glucose, Whole Blood 83 mg/dL (60-115)
[2021-03-23 14:28] LABS: Glucose, Whole Blood 82 mg/dL (60-115)
[2021-03-23 15:07] LABS: Appearance Urine CLEAR; Color Urine YELLOW; Glucose Urine UA NEG (NEG); Leukocyte Esterase Urine 1+ (NEG); Nitrite Urine NEG (NEG); Specific Gravity - Urine <= 1.005 (1.005-1.025); UACC Culture Trigger YES; Urine Blood NEG (NEG); Urine Ketones NEG (NEG); Urine Protein NEG (NEG-TRACE)
[2021-03-23 15:23] LABS: Bacteria Urine 1+ /LPF; RBC Urine 0 /HPF (0); Squamous Epithelial Cell Urine 1+ /LPF
[2021-03-23 15:40] LABS: Glucose, Whole Blood 90 mg/dL (60-115)
--- NOTE | 2021-03-23 16:09 | P.HPHOSP_ITS ---
History of Present Illness Date of Service: 03/23/21 Attending physician on admission: Alice Hernandez Chief Complaint: symptomatic hypoglycemia. 80-year-old female with past medical history of COPD, diabetes, hypertension, metastatic lung cancer/ small cell lung cancer recently On chemo- as per the patient was day 3 for chemo- she ate some crackers at home and took her Lantus as well as her hypoglycemic medications and came for her chemotherapy did not eat much after that and subsequently patient developed- diaphoresis, and was very weak- patient received D5W in ED- fingersticks improved in 90s range. In the morning her if fingersticks was in 32 range. currently patient is asymptomatic, she is feeling better. Denies any new complaint of chest pain or shortness of breath or abdominal pain or fever or chills or nausea or vomiting Denies any cough Denies any weakness or numbness. ED: Lab and imaging reviewed and personally interpreted: mild leukocytosis 11.6, BUN is 20 and creatinine is 0.7 fingersticks initially was 32 as above. Chest x-ray garcia : right upper lobe pleural thickening/mass. Review of Systems Review of Systems: as above. [facility] Medical History COPD (chronic obstructive pulmonary disease) Diabetes mellitus, type 2 Hypertension Family History Mother Breast cancer Diabetes HTN (hypertension) Father Lung cancer Surgical History History of section Social History Household Members: Other Housing: House Do you presently have visiting nurse or other home services: Yes Alcohol intake: former Patient Tobacco Use Status: Former Tobacco user Tobacco use type: Cigarette Use of substances other than those prescribed or required for medical reasons: No Currently Displaying Signs/Symptoms of Drug Intoxication Withdrawal: No Have you been hit, kicked, punched, or otherwise hurt by someone within the past year? If so, by whom?: No Do you feel safe in your current relationship?: No Current Relationship Is there a partner from a previous relationship who is making you feel unsafe now?: No Are you made to feel afraid or neglected: No Advance Directives: No Advance Directives Information Provided: No Do you have thoughts of harming others: None Do you have a plan to hurt others: No Plan Recently lost weight without trying: No Nutrition Risks: No Nutritional Risk service: No Current occupational status: retired Meds Allergies Allergy/AdvReac Type Severity Reaction Status Date / Time No Known Drug Allergies Allergy Unknown Verified 03/11/21 07:49 Active Medications: Current Medications Dextrose (D5w) 1,000 mls @ 100 mls/hr IVCONT .Q10H ONE Stop: 03/23/21 23:12 Last Admin: 03/23/21 13:22 Dose: 100 mls/hr Documented by: Pharmacy Consult (Consult Rx Perform Med Rec) 1 each MISCELLANE ONCE PRN PRN Reason: Consult order Sodium Chloride (0.9 % Sodium Chloride Flush 3 Ml Syringe) 3 ml IVFLUSH [facility] Home Medications Medication Instructions Recorded Confirmed Last Taken Type citalopram 20 mg tablet 2 tab PO DAILY 02/28/21 03/23/21 03/23/21 History glipizide 5 mg tablet 2 tab PO BID 02/28/21 03/23/21 03/23/21 History insulin glargine 100 unit/mL (3 30 unit SUBCUT BEDTIME 02/28/21 03/23/21 02/27/21 History mL) subcutaneous pen (Lantus Solostar U-100 Insulin) ipratropium 0.5 mg-albuterol 3 mg 3 ml INHALATION BID 02/28/21 03/23/21 03/23/21 History (2.5 mg base)/3 mL nebulization soln irbesartan 75 mg tablet 1 tab PO DAILY 02/28/21 03/23/21 03/23/21 History metformin 500 mg tablet,extended 2 tab PO BID 02/28/21 03/23/21 03/23/21 History release 24 hr montelukast 10 mg tablet 1 tab PO QPM 02/28/21 03/23/21 03/22/21 History oxybutynin chloride 5 mg tablet 1 tab PO TID PRN 02/28/21 03/23/21 03/23/21 History pantoprazole 40 mg tablet,delayed 1 tab PO DAILY 02/28/21 03/23/21 03/23/21 History release pravastatin 40 mg tablet 1 tab PO DAILY 02/28/21 03/23/21 03/23/21 History tiotropium bromide 2.5 2 puff PO DAILY 02/28/21 03/23/21 03/23/21 History mcg/actuation mist for inhalation (Spiriva Respimat) Physical Exam Vital Signs and Narrative: Vital Signs: Last Vital Signs Temp 98.3 F 03/23/21 15:44 Pulse 68 03/23/21 15:44 Resp 16 03/23/21 15:44 BP 122/41 L 03/23/21 15:44 Pulse Ox 98 03/23/21 15:44 Oxygen Flow Rate 2 03/23/21 11:18 BMI result Body Mass Index 38.6 Physical exam: Appearance: Alert.? Oriented X3.? not in distress.? Eyes: Pupils equal, round and reactive to light.? Sclera nonicteric.? ENT: Pharynx normal.? Moist mucous membranes. cvs: rrr, [id number] , no murmur res: clear to auscultation ,no rhonchii or wheezing abd: no rebound or guarding ,nt, bs present. ext pulses present , no cyanosis. neuro: axo3 , nonfocal. Results Labs CBC and Chem 7: 03/24/21 05:54 03/24/21 05:54 Labs: Laboratory Results - last 24 hr 03/23/21 03/23/21 03/23/21 11:52 11:52 11:52 MCV 80.8 MCH 24.4 L MCHC 30.2 L RDW 17.3 H Plt Count 286 MPV 9.5 Immature Gran % (Auto) 0.6 H Neut % (Auto) 72.8 Lymph % (Auto) 22.7 [place] % (Auto) 2.8 Eos % (Auto) 0.9 Baso % (Auto) 0.2 Lymph # (Auto) 2.6 [place] # (Auto) 0.3 Eos # (Auto) 0.1 Baso # (Auto) 0.0 Abs Immat Gran (auto) 0.07 H Absolute Neuts (auto) 8.5 H Absolute Nucleated RBC 0.000 Nucleated RBC % (auto) 0.0 Anion Gap 11 L Estim Creat Clear Calc 65.7 Estimated GFR > 60 POC Glucose Random Glucose 36 L* Calcium 9.7 D Total Bilirubin 0.3 Direct Bilirubin 0.2 AST 15 ALT 9 Alkaline Phosphatase 58 Troponin I High Sens 4.4 B-Natriuretic Peptide Total Protein 7.2 Albumin 3.5 Lipase 41 Urine Color Urine Appearance Urine pH Ur Specific [place] Urine Protein Urine Glucose (UA) Urine Ketones Urine Blood Urine Nitrite Ur Leukocyte Esterase Urine RBC Urine WBC Ur Squamous Epith Cells Urine Bacteria COVID-19 (THEA) COVID-19 Clin Com 03/23/21 03/23/21 03/23/21 11:52 11:52 12:48 MCV MCH MCHC RDW Plt Count MPV Immature Gran % (Auto) Neut % (Auto) Lymph % (Auto) [place] % (Auto) Eos % (Auto) Baso % (Auto) Lymph # (Auto) [place] # (Auto) Eos # (Auto) Baso # (Auto) Abs Immat Gran (auto) Absolute Neuts (auto) Absolute Nucleated RBC Nucleated RBC % (auto) Anion Gap Estim Creat Clear Calc Estimated GFR POC Glucose 55 L* Random Glucose Calcium Total Bilirubin Direct Bilirubin AST ALT Alkaline Phosphatase Troponin I High Sens B-Natriuretic Peptide 242 H Total Protein Albumin Lipase Urine Color Urine Appearance Urine pH Ur Specific [place] Urine Protein Urine Glucose (UA) Urine Ketones Urine Blood Urine Nitrite Ur Leukocyte Esterase Urine RBC Urine WBC Ur Squamous Epith Cells Urine Bacteria COVID-19 (THEA) Negative COVID-19 Clin Com See Note 03/23/21 03/23/21 03/23/21 13:08 13:45 14:24 MCV MCH MCHC RDW Plt Count MPV Immature Gran % (Auto) Neut % (Auto) Lymph % (Auto) [place] % (Auto) Eos % (Auto) Baso % (Auto) Lymph # (Auto) [place] # (Auto) Eos # (Auto) Baso # (Auto) Abs Immat Gran (auto) Absolute Neuts (auto) Absolute Nucleated RBC Nucleated RBC % (auto) Anion Gap Estim Creat Clear Calc Estimated GFR POC Glucose 52 L* 83 82 Random Glucose Calcium Total Bilirubin Direct Bilirubin AST ALT Alkaline Phosphatase Troponin I High Sens B-Natriuretic Peptide Total Protein Albumin Lipase Urine Color Urine Appearance Urine pH Ur Specific [place] Urine Protein Urine Glucose (UA) Urine Ketones Urine Blood Urine Nitrite Ur Leukocyte Esterase Urine RBC Urine WBC Ur Squamous Epith Cells Urine Bacteria COVID-19 (THEA) COVID-19 Clin Com 03/23/21 03/23/21 15:02 15:35 MCV MCH MCHC RDW Plt Count MPV Immature Gran % (Auto) Neut % (Auto) Lymph % (Auto) [place] % (Auto) Eos % (Auto) Baso % (Auto) Lymph # (Auto) [place] # (Auto) Eos # (Auto) Baso # (Auto) Abs Immat Gran (auto) Absolute Neuts (auto) Absolute Nucleated RBC Nucleated RBC % (auto) Anion Gap Estim Creat Clear Calc Estimated GFR POC Glucose 90 Random Glucose Calcium Total Bilirubin Direct Bilirubin AST ALT Alkaline Phosphatase Troponin I High Sens B-Natriuretic Peptide Total Protein Albumin Lipase Urine Color YELLOW Urine Appearance CLEAR Urine pH 6.0 Ur Specific [place] <= 1.005 Urine Protein NEG Urine Glucose (UA) NEG Urine Ketones NEG Urine Blood NEG Urine Nitrite NEG Ur Leukocyte Esterase 1+ H Urine RBC 0 Urine WBC 1-4 Ur Squamous Epith Cells 1+ Urine Bacteria 1+ COVID-19 (THEA) COVID-19 Clin Com Imaging Radiologist's Impressions: Impressions Chest X-Ray 03/23/21 12:06 IMPRESSION: Right upper lobe pleural thickening and question mass. Left base disease likely related to atelectasis. Emphysematous change bilaterally. Assessment and Plan (1) Hypoglycemia due to insulin: Status: Acute 1. dm with hypoglycemia: seems improving with D5W Hold diabetic medications, monitor fingersticks Continue D5W. 2. hypertension: Continue home he irbesartan. 3. COPD: Continue p.r.n. nebs. 4. metastatic small cell lung cancer: Management as per Oncology outpatient. Chest x-ray finding probably related to above. DVT prophylaxis: SubQ heparin Quality Stroke Does the patient have a stroke diagnosis?: No VTE Prior VTE?: No VTE Risk Level:: Medical - moderate - high VTE Device Contraindication: N/A - Device Ordered VTE Drug Contraindication: N/A - Med Ordered
[2021-03-23 16:46] LABS: Glucose, Whole Blood 98 mg/dL (60-115)
--- NOTE | 2021-03-23 17:20 | PHA.MEDREC ---
Pharmacy Consult ? Medication Reconciliation Pharmacy has completed the medication reconciliation.
[2021-03-23 17:31] LABS: Glucose, Whole Blood 103 mg/dL (60-115)
[2021-03-23 18:17] LABS: Glucose, Whole Blood 86 mg/dL (60-115)
[2021-03-23 19:10] LABS: Glucose, Whole Blood 121 mg/dL (60-115)
[2021-03-23] MEDS: oxyCODONE HCl Immed Release 5 MG TABLET PO (19:48)
[2021-03-23 19:54] LABS: Glucose, Whole Blood 154 mg/dL (60-115)
[2021-03-23 20:29] LABS: Glucose, Whole Blood 131 mg/dL (60-115)
[2021-03-23] MEDS: Albuterol/Iprat 2.5/0.5MG 3 ML AMPUL.NEB INHALE (20:35)
[2021-03-23] MEDS: Heparin Sodium,Porcine 5,000 UNIT/ML VIAL 5000 UNIT SUBCUT (20:51)
[2021-03-23] MEDS: Montelukast Sodium 10 MG TABLET PO (20:51)
[2021-03-23 21:26] LABS: Glucose, Whole Blood 148 mg/dL (60-115)
[2021-03-23 22:16] LABS: Glucose, Whole Blood 155 mg/dL (60-115)
[2021-03-23] MEDS: 0.9 % Sodium Chloride Flush 3 ML SYRINGE IVFLUSH (23:12)
[2021-03-24] MEDS: oxyCODONE HCl Immed Release 5 MG TABLET PO ×3 (01:26→10:08)
[2021-03-24] MEDS: Heparin Sodium,Porcine 5,000 UNIT/ML VIAL 5000 UNIT SUBCUT ×2 (01:26→09:12)
[2021-03-24 01:28] LABS: Glucose, Whole Blood 102 mg/dL (60-115)
[2021-03-24 03:31] VITALS: BP 169/59; PULSE 76; RESP 17; TEMP 36.8; O2SAT 95
[2021-03-24] MEDS: Omeprazole 20 MG CAPSULE.DR PO (05:26)
[2021-03-24 06:24] LABS: Hematocrit 32.7 % (37.0-47.0); Hemoglobin 9.7 g/dl (12.0-16.0); Mean Corpuscular HGB Conc 29.7 g/dl (31.0-35.0); Mean Corpuscular Hemoglobin 23.7 pg (27.0-33.0); Mean Platelet Volume 9.8 fL (9.4-12.3); Platelet Count 249 X10*3/uL (160-400); Red Blood Count 4.09 X10*6/uL (4.20-5.50); Red Cell Distribution Width 17.3 % (11.0-16.0); White Blood Count 8.1 X10*3/uL (4.8-10.8)
[2021-03-24 06:38] LABS: Anion Gap 11 (12-20); Blood Urea Nitrogen 18 mg/dL (9-16); Calcium 9.3 mg/dL (8.4-10.2); Carbon Dioxide 27 mmol/L (22-29); Chloride 104 mmol/L (96-108); Creatinine Clr Calc Pharmacy 64.9; Estimated Glomerular Filt Rate > 60; Glucose Random 120 mg/dL (60-115); Potassium 4.7 mmol/L (3.3-5.1); Sodium 137 mmol/L (135-145)
[2021-03-24 07:06] VITALS: BP 147/73; PULSE 75; RESP 20; TEMP 36.9; O2SAT 94
[2021-03-24 07:31] LABS: Glucose, Whole Blood 120 mg/dL (60-115)
[2021-03-24] MEDS: Albuterol/Iprat 2.5/0.5MG 3 ML AMPUL.NEB INHALE (07:38)
[2021-03-24 07:39] VITALS: PULSE 75; RESP 16; O2SAT 94
[2021-03-24] MEDS: Escitalopram Oxalate 20 MG TABLET PO (09:12)
[2021-03-24] MEDS: Pravastatin Sodium 40 MG TABLET PO (09:12)
[2021-03-24] MEDS: 0.9 % Sodium Chloride Flush 3 ML SYRINGE IVFLUSH (09:13)
[2021-03-24 10:48] LABS: Estimated Average Glucose 148 mg/dL; Hemoglobin A1C 151.1283 umol/L; Hemoglobin A1c % 6.8 %
--- NOTE | 2021-03-24 11:11 | PM.DS ---
DS: Providers Provider Date of Service: 03/24/21 Date of admission: 03/23/21 15:25 Primary care physician: Jerald Nugent MD DS: Summary Hospital Course Hospital Course: 80-year-old female with past medical history of COPD, diabetes, hypertension, metastatic lung cancer/ small cell lung cancer ? recently On chemo- as per the patient was day 3 for chemo- she ate some crackers at home and took her Lantus as well as her hypoglycemic medications and came for her chemotherapy did not eat much after that and subsequently patient developed- diaphoresis, and was very weak- patient received D5W in ED- fingersticks improved? in 90s range. ? In the morning her if fingersticks was in 32 range. ?currently patient is asymptomatic,? she is feeling better. Hospital course: patient came with hypoglycemia- probably related to decreased p.o. intake as well as insulin and glipizide- kindly monitor fingersticks before meals- if fingersticks are consistently above 200 start Lantus at small dose 5 units bedtime and then slowly add glipizide as needed for up titrate Lantus outpatient as per PCP. advised the patient to adequate p.o. intake. patient was treated with D5W and she is eating well as nausea fingersticks are running between 100-120 range. Patient is asymptomatic. chest x-ray replicated CTA findings- please follow-up with Dr. Mendoza out patiently for lung mass and lung cancer treatment. Patient UA slightly abnormal, patient has frequency urination garcia. Urine cultures growing Gram-negative portia- otherwise seems fine, no fever leukocytosis resolved- will start her on says p.o. Ceftin- please complete the course of antibiotic at home. Above management discussed with the patient in detail length she understand and in agreement with the above plan, time spent 50 minutes and 50% time spent on counseling. Significant findings: As above. Procedures performed: None. Treatment and response: As above. Complications: None. Time Spent with Patient Time attestation: Total time spent providing and/or coordinating discharge services: Discharge coordination time: Greater than 30 minutes Quality: Stroke Does the patient have a stroke diagnosis?: No Physical Exam Vital Signs: Vital Signs: Last Vital Signs Temp 98.5 F 03/24/21 07:06 Pulse 75 03/24/21 07:39 Resp 16 03/24/21 07:39 BP 147/73 H 03/24/21 07:06 Pulse Ox 94 03/24/21 07:06 Oxygen Flow Rate 2 03/23/21 11:18 BMI result Body Mass Index 38.6 Appearance: Alert.? Oriented X3.? not in distress.? Eyes: Pupils equal, round and reactive to light.? Sclera nonicteric.? ENT: Pharynx normal.? Moist mucous membranes. cvs: rrr, [id number] , no murmur res: clear to auscultation ,no rhonchii or wheezing abd: no rebound or guarding ,nt, bs present. ext pulses present , no cyanosis. neuro: axo3 , nonfocal. DS: Data Data Completed and Pending Labs on day of discharge: Laboratory Results - last 24 hr 03/23/21 03/23/21 03/23/21 11:52 11:52 11:52 WBC 11.6 H RBC 4.22 Hgb 10.3 L Hct 34.1 L MCV 80.8 MCH 24.4 L MCHC 30.2 L RDW 17.3 H Plt Count 286 MPV 9.5 Immature Gran % (Auto) 0.6 H Neut % (Auto) 72.8 Lymph % (Auto) 22.7 [place] % (Auto) 2.8 Eos % (Auto) 0.9 Baso % (Auto) 0.2 Lymph # (Auto) 2.6 [place] # (Auto) 0.3 Eos # (Auto) 0.1 Baso # (Auto) 0.0 Abs Immat Gran (auto) 0.07 H Absolute Neuts (auto) 8.5 H Absolute Nucleated RBC 0.000 Nucleated RBC % (auto) 0.0 Sodium 140 Potassium 4.2 Chloride 107 Carbon Dioxide 26 Anion Gap 11 L BUN 20 H D Creatinine 0.78 Estim Creat Clear Calc 65.7 Estimated GFR > 60 POC Glucose Random Glucose 36 L* Estimat Average Glucose Hemoglobin A1c % Calcium 9.7 D Total Bilirubin 0.3 Direct Bilirubin 0.2 AST 15 ALT 9 Alkaline Phosphatase 58 Troponin I High Sens 4.4 B-Natriuretic Peptide Total Protein 7.2 Albumin 3.5 Lipase 41 Urine Color Urine Appearance Urine pH Ur Specific [place] Urine Protein Urine Glucose (UA) Urine Ketones Urine Blood Urine Nitrite Ur Leukocyte Esterase Urine RBC Urine WBC Ur Squamous Epith Cells Urine Bacteria COVID-19 (THEA) COVID-19 Clin Com 03/23/21 03/23/21 03/23/21 11:52 11:52 12:48 WBC RBC Hgb Hct MCV MCH MCHC RDW Plt Count MPV Immature Gran % (Auto) Neut % (Auto) Lymph % (Auto) [place] % (Auto) Eos % (Auto) Baso % (Auto) Lymph # (Auto) [place] # (Auto) Eos # (Auto) Baso # (Auto) Abs Immat Gran (auto) Absolute Neuts (auto) Absolute Nucleated RBC Nucleated RBC % (auto) Sodium Potassium Chloride Carbon Dioxide Anion Gap BUN Creatinine Estim Creat Clear Calc Estimated GFR POC Glucose 55 L* Random Glucose Estimat Average Glucose Hemoglobin A1c % Calcium Total Bilirubin Direct Bilirubin AST ALT Alkaline Phosphatase Troponin I High Sens B-Natriuretic Peptide 242 H Total Protein Albumin Lipase Urine Color Urine Appearance Urine pH Ur Specific [place] Urine Protein Urine Glucose (UA) Urine Ketones Urine Blood Urine Nitrite Ur Leukocyte Esterase Urine RBC Urine WBC Ur Squamous Epith Cells Urine Bacteria COVID-19 (THEA) Negative COVID-19 Clin Com See Note 03/23/21 03/23/21 03/23/21 13:08 13:45 14:24 WBC RBC Hgb Hct MCV MCH MCHC RDW Plt Count MPV Immature Gran % (Auto) Neut % (Auto) Lymph % (Auto) [place] % (Auto) Eos % (Auto) Baso % (Auto) Lymph # (Auto) [place] # (Auto) Eos # (Auto) Baso # (Auto) Abs Immat Gran (auto) Absolute Neuts (auto) Absolute Nucleated RBC Nucleated RBC % (auto) Sodium Potassium Chloride Carbon Dioxide Anion Gap BUN Creatinine Estim Creat Clear Calc Estimated GFR POC Glucose 52 L* 83 82 Random Glucose Estimat Average Glucose Hemoglobin A1c % Calcium Total Bilirubin Direct Bilirubin AST ALT Alkaline Phosphatase Troponin I High Sens B-Natriuretic Peptide Total Protein Albumin Lipase Urine Color Urine Appearance Urine pH Ur Specific [place] Urine Protein Urine Glucose (UA) Urine Ketones Urine Blood Urine Nitrite Ur Leukocyte Esterase Urine RBC Urine WBC Ur Squamous Epith Cells Urine Bacteria COVID-19 (THEA) COVID-19 Clin Com 03/23/21 03/23/21 03/23/21 15:02 15:35 16:41 WBC RBC Hgb Hct MCV MCH MCHC RDW Plt Count MPV Immature Gran % (Auto) Neut % (Auto) Lymph % (Auto) [place] % (Auto) Eos % (Auto) Baso % (Auto) Lymph # (Auto) [place] # (Auto) Eos # (Auto) Baso # (Auto) Abs Immat Gran (auto) Absolute Neuts (auto) Absolute Nucleated RBC Nucleated RBC % (auto) Sodium Potassium Chloride Carbon Dioxide Anion Gap BUN Creatinine Estim Creat Clear Calc Estimated GFR POC Glucose 90 98 Random Glucose Estimat Average Glucose Hemoglobin A1c % Calcium Total Bilirubin Direct Bilirubin AST ALT Alkaline Phosphatase Troponin I High Sens B-Natriuretic Peptide Total Protein Albumin Lipase Urine Color YELLOW Urine Appearance CLEAR Urine pH 6.0 Ur Specific [place] <= 1.005 Urine Protein NEG Urine Glucose (UA) NEG Urine Ketones NEG Urine Blood NEG Urine Nitrite NEG Ur Leukocyte Esterase 1+ H Urine RBC 0 Urine WBC 1-4 Ur Squamous Epith Cells 1+ Urine Bacteria 1+ COVID-19 (THEA) COVID-19 [email or web address] 03/23/21 03/23/21 03/23/21 17:26 18:12 19:00 WBC RBC Hgb Hct MCV MCH MCHC RDW Plt Count MPV Immature Gran % (Auto) Neut % (Auto) Lymph % (Auto) [place] % (Auto) Eos % (Auto) Baso % (Auto) Lymph # (Auto) [place] # (Auto) Eos # (Auto) Baso # (Auto) Abs Immat Gran (auto) Absolute Neuts (auto) Absolute Nucleated RBC Nucleated RBC % (auto) Sodium Potassium Chloride Carbon Dioxide Anion Gap BUN Creatinine Estim Creat Clear Calc Estimated GFR POC Glucose 103 86 121 H Random Glucose Estimat Average Glucose Hemoglobin A1c % Calcium Total Bilirubin Direct Bilirubin AST ALT Alkaline Phosphatase Troponin I High Sens B-Natriuretic Peptide Total Protein Albumin Lipase Urine Color Urine Appearance Urine pH Ur Specific [place] Urine Protein Urine Glucose (UA) Urine Ketones Urine Blood Urine Nitrite Ur Leukocyte Esterase Urine RBC Urine WBC Ur Squamous Epith Cells Urine Bacteria COVID-19 (THEA) COVID-19 [email or web address] 03/23/21 03/23/21 03/23/21 19:45 20:22 21:22 WBC RBC Hgb Hct MCV MCH MCHC RDW Plt Count MPV Immature Gran % (Auto) Neut % (Auto) Lymph % (Auto) [place] % (Auto) Eos % (Auto) Baso % (Auto) Lymph # (Auto) [place] # (Auto) Eos # (Auto) Baso # (Auto) Abs Immat Gran (auto) Absolute Neuts (auto) Absolute Nucleated RBC Nucleated RBC % (auto) Sodium Potassium Chloride Carbon Dioxide Anion Gap BUN Creatinine Estim Creat Clear Calc Estimated GFR POC Glucose 154 H 131 H 148 H Random Glucose Estimat Average Glucose Hemoglobin A1c % Calcium Total Bilirubin Direct Bilirubin AST ALT Alkaline Phosphatase Troponin I High Sens B-Natriuretic Peptide Total Protein Albumin Lipase Urine Color Urine Appearance Urine pH Ur Specific [place] Urine Protein Urine Glucose (UA) Urine Ketones Urine Blood Urine Nitrite Ur Leukocyte Esterase Urine RBC Urine WBC Ur Squamous Epith Cells Urine Bacteria COVID-19 (THEA) COVID-19 Clin Com 03/23/21 03/24/21 03/24/21 22:07 01:24 05:54 WBC 8.1 RBC 4.09 L Hgb 9.7 L Hct 32.7 L MCV 80.0 MCH 23.7 L MCHC 29.7 L RDW 17.3 H Plt Count 249 MPV 9.8 Immature Gran % (Auto) Neut % (Auto) Lymph % (Auto) [place] % (Auto) Eos % (Auto) Baso % (Auto) Lymph # (Auto) [place] # (Auto) Eos # (Auto) Baso # (Auto) Abs Immat Gran (auto) Absolute Neuts (auto) Absolute Nucleated RBC 0.000 Nucleated RBC % (auto) 0.0 Sodium Potassium Chloride Carbon Dioxide Anion Gap BUN Creatinine Estim Creat Clear Calc Estimated GFR POC Glucose 155 H 102 Random Glucose Estimat Average Glucose Hemoglobin A1c % Calcium Total Bilirubin Direct Bilirubin AST ALT Alkaline Phosphatase Troponin I High Sens B-Natriuretic Peptide Total Protein Albumin Lipase Urine Color Urine Appearance Urine pH Ur Specific [place] Urine Protein Urine Glucose (UA) Urine Ketones Urine Blood Urine Nitrite Ur Leukocyte Esterase Urine RBC Urine WBC Ur Squamous Epith Cells Urine Bacteria COVID-19 (THEA) COVID-19 Clin Com 03/24/21 03/24/21 03/24/21 05:54 05:54 07:11 WBC RBC Hgb Hct MCV MCH MCHC RDW Plt Count MPV Immature Gran % (Auto) Neut % (Auto) Lymph % (Auto) [place] % (Auto) Eos % (Auto) Baso % (Auto) Lymph # (Auto) [place] # (Auto) Eos # (Auto) Baso # (Auto) Abs Immat Gran (auto) Absolute Neuts (auto) Absolute Nucleated RBC Nucleated RBC % (auto) Sodium 137 Potassium 4.7 Chloride 104 Carbon Dioxide 27 Anion Gap 11 L BUN 18 H Creatinine 0.79 Estim Creat Clear Calc 64.9 Estimated GFR > 60 POC Glucose 120 H Random Glucose 120 H Estimat Average Glucose 148 Hemoglobin A1c % 6.8 Calcium 9.3 Total Bilirubin Direct Bilirubin AST ALT Alkaline Phosphatase Troponin I High Sens B-Natriuretic Peptide Total Protein Albumin Lipase Urine Color Urine Appearance Urine pH Ur Specific [place] Urine Protein Urine Glucose (UA) Urine Ketones Urine Blood Urine Nitrite Ur Leukocyte Esterase Urine RBC Urine WBC Ur Squamous Epith Cells Urine Bacteria COVID-19 (THEA) COVID-19 Clin Com Additional Comments Additional comments: CXr:IMPRESSION: Right upper lobe pleural thickening and question mass. ? Left base disease likely related to atelectasis. ? Emphysematous change bilaterally. ? Discharge Plan Discharge Patient Disposition: Home, Self-Care Discharge Diagnosis: dm with hypoglycemia Referrals: Jerald Nugent MD [Primary Care Provider] - 1 Week Discharge Medications: New cefuroxime axetil 250 mg tablet 250 mg PO Q12H Qty: 10 RF: 0 Continued ipratropium-albuterol 0.5 mg-3 mg(2.5 mg base)/3 mL solution for nebulization 3 ml inhalation BID RF: 0 pravastatin 40 mg tablet 1 tab PO DAILY RF: 0 citalopram 20 mg tablet 2 tab PO DAILY RF: 0 pantoprazole 40 mg tablet,delayed release (DR/EC) 1 tab PO DAILY RF: 0 irbesartan 75 mg tablet 1 tab PO DAILY RF: 0 montelukast 10 mg tablet 1 tab PO QPM RF: 0 oxybutynin chloride 5 mg tablet 1 tab PO TID PRN (Reason: URINARY SYMPTOMS) RF: 0 metformin 500 mg tablet extended release 24 hr 2 tab PO BID RF: 0 Spiriva Respimat 2.5 mcg/actuation mist 2 puff PO DAILY RF: 0 ondansetron 8 mg Tablet,Disintegrating 8 mg PO Q8H PRN (Reason: nausea) Qty: 60 RF: 3 oxycodone 5 mg Tablet 5 mg PO Q4H PRN (Reason: Pain) Qty: 60 RF: 0 Held glipizide 5 mg tablet 2 tab PO BID RF: 0 Hold Instructions: Resume on 03/28/21. Lantus Solostar U-100 Insulin 100 unit/mL (3 mL) insulin pen 30 unit subcut BEDTIME RF: 0 Hold Instructions: Resume on 03/29/21. start lantus slowly with 5 units at bedtime Discharge Orders: Discharge Order (Routine); Ordered 03/24/21 Ordered By: Alice Hernandez Diet: advance to usual diet, diabetic diet and low fat, low cholesterol Activity on Discharge: As tolerated Stand Alone Forms: Patient Portal Discharge page Care Plan Goals: patient came with hypoglycemia- probably related to decreased p.o. intake as well as insulin and glipizide- kindly monitor fingersticks before meals- if fingersticks are consistently above 200 start Lantus at small dose 5 units bedtime and then slowly add glipizide as needed for up titrate Lantus outpatient as per PCP. advised the patient to adequate p.o. intake. patient was treated with D5W and she is eating well as nausea fingersticks are running between 100-120 range. Patient is asymptomatic. Patient UA slightly abnormal, patient has frequency urination garcia. Urine cultures growing Gram-negative portia- otherwise seems fine, no fever leukocytosis resolved- will start her on says p.o. Ceftin- please complete the course of antibiotic at home. chest x-ray replicated CTA findings- please follow-up with Dr. Mendoza out patiently for lung mass and lung cancer treatment. Health Concerns: as above. Plan of Treatment: as above. Assessment: as above.
[2021-03-24 11:14] LABS: Glucose, Whole Blood 148 mg/dL (60-115)
[2021-03-24 11:15] VITALS: BP 139/57; PULSE 70; RESP 20; TEMP 36.4; O2SAT 96
[2021-03-24] MEDS: Ondansetron ODT 8 MG TAB.RAPDIS TRANSLINGU (12:01)
--- NOTE | 2021-03-24 14:15 | MHC.CM.PN ---
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 SHE IS UNSURE WHEN SHE NEEDS TO RETURN CM ATTEMPTED TO CONTACT ONCOLOGY X2 BUT WAS UNABLE TO REACH ANYONE PT IS AWARE AND REPORTS SHE WILL CALL AND WOULD LIKE TO DC
== END 2021-03-24 15:05 | disposition home or self-care (01) ==
LOC: HO.ED 13:46 → HO.EDOVER 15:44 → HO.S3 20:12
PROVIDERS: Admitting Provider Internal Medicine; Emergency Provider Emergency Medicine; PCP Internal Medicine; Visit Provider Internal Medicine
DX: E16.0 Drug-induced hypoglycemia without coma (principal); E11.649 Type 2 diabetes mellitus with hypoglycemia without coma; T38.3X5A Adverse effect of insulin and oral hypoglycemic [antidiabetic] drugs, initial encounter; Y92.9 Unspecified place or not applicable; J44.9 Chronic obstructive pulmonary disease, unspecified; I10 Essential (primary) hypertension; C34.90 Malignant neoplasm of unspecified part of unspecified bronchus or lung; Z87.891 Personal history of nicotine dependence; Z20.822 Contact with and (suspected) exposure to COVID-19; Z92.21 Personal history of antineoplastic chemotherapy; Z83.3 Family history of diabetes mellitus; Z82.49 Family history of ischemic heart disease and other diseases of the circulatory system; Z80.3 Family history of malignant neoplasm of breast; Z80.1 Family history of malignant neoplasm of trachea, bronchus and lung; Z79.4 Long term (current) use of insulin; Z79.84 Long term (current) use of oral hypoglycemic drugs; Z79.891 Long term (current) use of opiate analgesic; Z79.899 Other long term (current) drug therapy
CPT/HCPCS: 36415; 71045; 80048; 80076; 81001; 82947; 83036; 83690; 83880; 84484; 85025; 85027; 87086; 87088; 87186; 87635; 93005; 94640; 96365; 96366; 96372; 99218; 99285

== ENCOUNTER 2021-03-25 08:55 | Inpatient (IN) | payer MEDICARE, SELFPAY ==
[2021-03-25] VITALS (8 sets, daily range): BP systolic 98–135; BP diastolic 47–80; PULSE 77–88; RESP 14–24; TEMP 36.8–37.1; O2SAT 2–99; BMI 38.9
--- NOTE | ~2021-03-25 | US_ITS ---
EXAMINATION: ULTRASOUND ARTERIAL DUPLEX LOWER EXTREMITY LEFT CLINICAL INFORMATION: Left leg pain and swelling COMPARISON: None TECHNIQUE: Doppler color and cohen-scale evaluation of the arteries of the left lower extremity including waveform spectral analysis. FINDINGS: There is evidence of atherosclerotic disease. No visible stenosis or occlusion is seen. Peak systolic velocities and waveforms: Left common femoral artery: 182 cm/s, triphasic Profunda: 105 cm/s, biphasic Proximal mid and distal SFA: 174 cm/s, 99 cm/s and 95 cm/s and biphasic Popliteal artery: 57 cm/s and biphasic Posterior tibial artery: 97 cm/s and biphasic. US/US arterial duplex LE LT IMPRESSION: Atherosclerotic plaque and mild atherosclerotic disease. No thrombus or hemodynamically significant stenosis seen.
--- NOTE | ~2021-03-25 | CT_ITS ---
Millimeters sagittal coronal and 3 minutes EXAMINATION: CT BRAIN, CTA CHEST WITH CONTRAST AND CT OF ABDOMEN ANd PELVIS WITH CONTRAST. CLINICAL INFORMATION: Extensive left DVT COMPARISON: CTA chest 02/28/2021 TECHNIQUE: 5 mm thin axial and reformatted 2 mm thin sagittal and coronal images of brain were obtained. DLP 08/12/1992. 5 mm thin axial and reformatted 3 mm an 8 mm reconstructions were performed following IV 65 mL Omnipaque 350. 5 mm thin axial and reformatted 3 mm thin sagittal coronal images of abdomen pelvis were obtained. DLP 1240. FINDINGS: BRAIN: There is no acute intra-axial, extra-axial bleed,, collection or midline shift. There is extra-axial left parasagittal calcified mass likely a meningioma measuring 1.2 cm x 0.9 cm.. There is no edema or mass effect. There is no acute infarction evolution. There is extensive periventricular hypodensity in both cerebral hemispheres without mass effect. The lateral ventricles are symmetrical but enlarged and so are the cortical sulci. Bone windows reveal no calvarial abnormality. Bilateral paranasal sinuses and mastoid air cells are well-aerated. CTA CHEST. There is good opacification of pulmonary artery and its branches without intraluminal filling defect or narrowing. The thoracic aorta is of normal caliber. The heart size and the great vessels are normal caliber no pericardial effusion seen. The central trachea and the bronchi widely patent. A prominent right paratracheal and right hilar lymph nodes measuring 2.1 x 1.2 cm lymph node on axial image 18/7. There are coronary artery calcifications present. The right thyroid lobe is heterogenous and slightly enlarged compared to left. There is a loculated right pleural effusion without any calcified pleural plaques. There is pleural thickening in the right lung base. There is no left-sided pleural effusion. There is centrilobular emphysema with bullous changes in both lung apices. There are scattered small pulmonary nodules similar previous study 02/28/2021. No mass or consolidation seen. There is minimal dependent atelectasis right lung base prominent interstitial markings are seen in both lungs likely secondary to emphysema. The axilla and the chest wall appears unremarkable. ABDOMEN AND PELVIS: The liver is enlarged measuring 22 cm. There are 2 suspicious lesions in the anterior and posterior segment of the right hepatic lobe. The larger heterogeneous lesion measures 6.1 x 6.2 cm and a smaller lesion measures 2.4 x 3.2 cm on axial image 16/15 and 15/15 respectively. No additional lesions seen. There is no intrahepatic ductal dilatation. Visualized spleen, pancreas and adrenal glands are unremarkable. Both kidneys are normal size, shape and position. There is no radiopaque calculi or hydronephrosis. There atherosclerotic changes of abdominal aorta with mild ectasia mid segment measuring 2.8 x 2.7 cm. No abnormal size retroperitoneal lymph nodes or mass seen. There is scattered stool and diverticuli seen in the colon without any distention or diverticulitis. The small bowel loops are normal caliber. Appendix is not visualized with certainty. No inflammatory process seen in the abdomen.. There is a small hiatal hernia. There is small umbilical hernia containing fat. Imaging to the pelvis reveals a nondistended urinary bladder to be unremarkable. The uterus is anteverted and appears grossly unremarkable. There is a bilobed hypodense lesion in the left adnexa and is more elongated question hydrosalpinx or ovarian cyst. Measures 2.1 x 1.8 cm. The left common iliac vein is distended. Apparently there is a clot visualized on the ultrasound exam performed earlier today. Bone windows reveal degenerative disc changes with vacuum disc phenomena L5-S1 disc level. There is endplate changes L3 and L2 vertebra. No lytic or sclerotic process seen. CT/CT angio chest PE protocol IMPRESSION: No acute intracranial process seen. There is left frontal parasagittal calcified mass likely meningioma. No evidence of PE or aortic dissection. Diffuse emphysema, multiple small bony nodules and chronic changes are stable to previous CT chest exam. There is right paratracheal and right hilar abnormal lymph nodes, stable. 2 hypodense lesion in the right lobe are suspicious for malignancy. There is mild hepatomegaly. Colonic diverticulosis without diverticulitis.
--- NOTE | ~2021-03-25 | US_ITS ---
EXAMINATION: US VENOUS ULTRASOUND WITH DOPPLER LOWER EXTREMITY, LEFT CLINICAL INFORMATION: Swelling and pain COMPARISON: Previous exam 03/16/2021 TECHNIQUE: Ultrasound of the deep veins is performed from the hip to the calf with compression sonography and color and pulse Doppler assessment. Spectral analysis with color-flow imaging is performed. FINDINGS: There is extensive occlusive acute-appearing thrombus in the left common femoral, superficial femoral, profunda femoral, and popliteal veins and visualized peroneal and posterior tibial veins in the calf. There is thrombus in the visualized left greater saphenous vein. US/US venous duplex LE LT IMPRESSION: Large occlusive left leg DVT. Findings were communicated to Kaycee Prince by telephone on 03/25/2021 10:55 AM.
--- NOTE | 2021-03-25 09:31 | ECG_ITS ---
Test Reason : EXTREMITY ON FOOT Blood Pressure : / mmHG Vent. Rate : 076 BPM Atrial Rate : 076 BPM P-R Int : 178 ms QRS Dur : 080 ms QT Int : 368 ms P-R-T Axes : 061 -15 030 degrees QTc Int : 414 ms Normal sinus rhythm Inferior infarct , age undetermined Abnormal ECG When compared with ECG of 23-MAR-2021 11:42, Inferior infarct is now Present Referred By: Kaycee Prince Electronically Signed By:NURY SINHA MD
--- NOTE | 2021-03-25 10:09 | ED.EXTPRO ---
HPI - Extremity Problem General Chief complaint: Extremity Problem Stated complaint: left leg swelling Time Seen by Provider: 03/25/21 09:22 Source: patient and EMS Mode of arrival: EMS Limitations: no limitations History of Present Illness HPI Narrative: 80-year-old female coming from home with complaints of left leg pain, discoloration swelling since 18:00 last night. Patient tells me that she has had some chronic swelling in the left lower extremity as well as some rash to the left foot which has been chronic. However she does not normally have any pain or discolorations the leg. Of note the patient has a medical history of small-cell lung cancer with metastatic lesions started on chemotherapy last week followed by Dr. Mendoza, COPD, diabetes, hypertension. No history of PE or DVT. Patient denies any increased shortness of breath or chest pain or oxygen requirements Related Data Home Medications Medication Instructions Recorded Confirmed citalopram 20 mg tablet 2 tab PO DAILY 02/28/21 03/25/21 glipizide 5 mg tablet 2 tab PO BID 02/28/21 03/25/21 insulin glargine 100 unit/mL (3 30 unit SUBCUT BEDTIME 02/28/21 03/25/21 mL) subcutaneous pen (Lantus Solostar U-100 Insulin) ipratropium 0.5 mg-albuterol 3 mg 3 ml INHALATION BID 02/28/21 03/25/21 (2.5 mg base)/3 mL nebulization soln irbesartan 75 mg tablet 1 tab PO DAILY 02/28/21 03/25/21 metformin 500 mg tablet,extended 2 tab PO BID 02/28/21 03/25/21 release 24 hr montelukast 10 mg tablet 1 tab PO QPM 02/28/21 03/25/21 oxybutynin chloride 5 mg tablet 1 tab PO TID PRN 02/28/21 03/25/21 pantoprazole 40 mg tablet,delayed 1 tab PO DAILY 02/28/21 03/25/21 release pravastatin 40 mg tablet 1 tab PO DAILY 02/28/21 03/25/21 tiotropium bromide 2.5 2 puff PO DAILY 02/28/21 03/25/21 mcg/actuation mist for inhalation (Spiriva Respimat) Previous Rx's Medication Instructions Recorded ondansetron 8 mg disintegrating 8 mg PO Q8H PRN #60 tab 03/15/21 tablet oxycodone 5 mg tablet 5 mg PO Q4H PRN #60 tab 03/22/21 cefuroxime axetil 250 mg tablet 250 mg PO Q12H #10 tab 03/24/21 Allergies Allergy/AdvReac Type Severity Reaction Status Date / Time No Known Drug Allergies Allergy Unknown Verified 03/11/21 07:49 Review of Systems Review of Systems: Yes all other systems are reviewed and are negative Constitutional: Constitutional: Reports no additional constitutional complaints, Denies body ache(s), Denies chills, Denies fever(s), Denies headache(s) and Denies weakness Eyes: Eyes: Reports no additional eye complaints and Denies change in vision ENT: Reports system reviewed and no additional complaints, except as documented, Denies dizziness, Denies headache(s), Denies nasal congestion, Denies nasal discharge and Denies neck pain Cardiovascular: Cardiovascular: Reports no additional cardiovascular complaints, Denies chest pain, Reports leg edema and Denies dyspnea Respiratory: Respiratory: Reports no additional respiratory complaints, Denies cough and Denies dyspnea Gastrointestinal: Gastrointestinal: Reports no additional gastrointestinal complaints, Denies abdominal pain, Denies diarrhea, Denies nausea and Denies vomiting Genitourinary: Genitourinary: Reports no additional female genitourinary complaints and Denies urinary incontinence Musculoskeletal: Musculoskeletal: Reports no additional musculoskeletal complaints, Denies back pain, Denies arthralgias, Denies joint swelling, Denies neck pain, Denies numbness and Denies tingling Integumentary/Breasts: Skin/Breast: Reports system reviewed and no additional complaints, except as docu, Reports swelling and Denies rash Neurologic: Reports system reviewed and no additional complaints, except as documented, Denies Abnormal speech present, Denies dizziness, Denies headache(s), Denies numbness, Denies tingling and Denies weakness [facility] Past Medical History Attestation statement: The following information was validated with the patient. Source: old records reviewed and nursing notes reviewed Medical History COPD (chronic obstructive pulmonary disease) Diabetes mellitus, type 2 Hypertension Surgical History History of section Family History Family History Mother Breast cancer Diabetes HTN (hypertension) Father Lung cancer Social History Social History Household Members: Other Housing: House Do you presently have visiting nurse or other home services: Yes Alcohol intake: former Patient Tobacco Use Status: Former Tobacco user Tobacco use type: Cigarette Advance Directives: Yes Advance Directives Information Provided: Yes Advance Directives on File: No service: No Current occupational status: retired Physical Exam Vital Signs: Vital Signs: Last Vital Signs Temp 98.5 F 03/25/21 14:21 Pulse 88 03/25/21 14:21 Resp 16 03/25/21 14:21 BP 126/71 03/25/21 14:21 Pulse Ox 97 03/25/21 14:21 Oxygen Flow Rate 2 03/25/21 09:03 BMI result Body Mass Index 38.9 Const: General: cooperative, healthy appearing, comfortable and no acute distress Orientation/consciousness: patient oriented x3 Limitations: no limitations HENMT: Head: Yes normal to inspection Ears: hearing grossly normal bilaterally General nose exam: Normal external nose present Face and sinus: Yes normal facial exam Mouth: Normal oral and palatal mucosa present Throat: Yes posterior oropharynx normal Eyes: General: appearance normal, both eyes and all related structures Pupils: Equal, round and reactive pupils present Neck: Neck: Yes normal visual inspection Chest: Chest palpation & inspection: normal inspection of the chest Resp: Effort & Inspection: normal respiratory effort Auscultation: clear to auscultation bilaterally Cardio: Rate: regular rate Rhythm: regular rhythm Peripheral pulses: Peripheral pulses 2+ throughout GI: Inspection: Yes normal to inspection Palpation (GI): Soft to palpation and nontender Auscultation: normal bowel sounds Back/Spine/Pelvis: Thoracic/Lumbar Spine: thoracic and lumbar spine normal to inspection Skin: General skin exam: no rashes or lesions noted Neuro: General: patient oriented x3, no focal motor deficits and normal sensation to monofilament Cranial nerves: Yes Equal, round and reactive pupils present Cognition (Neuro): normal cognition Speech: No Abnormal speech present Gait exam (Neuro): Normal gait present Motor exam (neuro): 5/5 motor strength present throughout Extrem: Other: This skin is warm to touch. The patient is able to flex and extend the foot with no difficulty. There is tenderness diffusely over the leg. The compartments are soft and compressible. Faint DP pulse palpated. General: Yes normal to inspection Course Course Course Narrative: 80-year-old female with a history of lung cancer with metastatic disease currently on chemotherapy, COPD, hypertension, diabetes here with reports of left leg swelling, pain and discoloration since last evening at 18:00. On arrival the patient has diffuse tenderness the leg. There is discoloration noted. The skin is warm to touch. There is a faint DP pulse palpated. She is able to flex and extend the foot with no difficulty. The compartments are soft and compressible. The patient will need an ultrasound both arterial and venous to rule out occlusion. Will check labs, provide analgesia. 1050-Call from Dr Le. Extensive DVT in left leg. Will wait for formal report. Call and speak to patient's oncologist [id number]-reviewed ultrasound shows a large occlusive left leg DVT which is quite extensive. Case was discussed with Dr. Waters my attending physician. Plan for CTA of the chest to rule out PE, CT abdomen and pelvis with IV contrast to rule out further occlusion. Will check CT head to rule out any ICH or mass prior to administration of AC. Nurse was able to obtain Doppler pulses of the left foot with no difficulty and the areas were marked 1415-CT abdomen and pelvis and chest are negative for additional occlusion. CT head shows a calcified meningioma. Plan for admission for IV heparin. Discussed case with medicine doctor Angy. Recommended discussion with vascular to determine if any intervention would be helpful. Dr Mendoza the patient's oncologist was informed. -the case was discussed with Dr. Acuña. Due to history of malignancy no intervention is recommended. However if the DVT were to worsen they would place an IVC filter. Recommended admission for observation and treating with anticoagulation. MDM - Extremity (Nontraumatic) Medical Records Attestation: I reviewed the patient's medical records. Lab Data Attestation: I reviewed the patient's lab results. Result diagrams: 03/25/21 10:49 03/25/21 10:49 Labs: Lab Results 03/25/21 03/25/21 03/25/21 Range/Units 10:49 10:49 10:49 WBC 8.3 (4.8-10.8) X10*3/uL RBC 4.44 (4.20-5.50) X10*6/uL Hgb 10.6 L (12.0-16.0) g/dl Hct 35.2 L (37.0-47.0) % MCV 79.3 L (80.0-98.0) fL MCH 23.9 L (27.0-33.0) pg MCHC 30.1 L (31.0-35.0) g/dl RDW 17.4 H (11.0-16.0) % Plt Count 180 D (160-400) X10*3/uL MPV 9.7 (9.4-12.3) fL Immature Gran % (Auto) 0.5 H (0.0-0.4) % Neut % (Auto) 87.5 H (45-73) % Lymph % (Auto) 10.6 L (20-40) % Carver % (Auto) 0.5 L (2-11) % Eos % (Auto) 0.7 (0-4) % Baso % (Auto) 0.2 (0-2) % Lymph # (Auto) 0.9 L (1.2-4.9) X10*3/uL Carver # (Auto) 0.0 L (0.1-1.2) X10*3/uL Eos # (Auto) 0.1 (0.0-0.4) X10*3/uL Baso # (Auto) 0.0 (0.0-0.2) X10*3/uL Abs Immat Gran (auto) 0.04 H (0.00-0.03) X10*3/uL Absolute Neuts (auto) 7.3 (2.0-8.3) x10*3/uL Absolute Nucleated RBC 0.000 (0.0-0.012) X10*3/uL Nucleated RBC % (auto) 0.0 (0.0-0.2) /100WBC Smear Tech's Comments VERIFIED PT 11.9 (9.9-13.0) SEC INR 1.0 (0.9-1.1) APTT 29.4 (24.1-38.0) SEC Sodium 132 L (135-145) mmol/L Potassium 4.8 (3.3-5.1) mmol/L Chloride 101 (96-108) mmol/L Carbon Dioxide 21 L (22-29) mmol/L Anion Gap 15 (12-20) BUN 23 H (9-16) mg/dL Creatinine 1.11 (0.5-1.4) mg/dL Estim Creat Clear Calc 46.4 Estimated GFR 47 Random Glucose 196 H (60-115) mg/dL Lactic Acid (0.5-2.0) mmol/L Calcium 9.5 (8.4-10.2) mg/dL Magnesium 1.8 (1.6-2.6) mg/dL Total Bilirubin 0.7 (0.0-1.0) mg/dL Direct Bilirubin 0.3 (0.0-0.5) mg/dL AST 20 (5-31) U/L ALT 14 (0-31) U/L Alkaline Phosphatase 66 (39-117) U/L Troponin I High Sens (<3.5-17.0) ng/L Total Protein 7.6 (6.5-8.0) g/dL Albumin 3.8 (3.5-5.0) g/dL Urine Color Urine Appearance Urine pH (5.0-8.0) Ur Specific Blackwood (1.005-1.025) Urine Protein (NEG-TRACE) MG/DL Urine Glucose (UA) (NEG) MG/DL Urine Ketones (NEG) MG/DL Urine Blood (NEG) Urine Nitrite (NEG) Ur Leukocyte Esterase (NEG) Urine RBC (0) /HPF Urine WBC (0-4) /HPF Ur Squamous Epith Cells /LPF Urine Bacteria /LPF Hyaline Casts /LPF Urine Yeast /HPF COVID-19 (THEA) (Negative) COVID-19 Clin Com 03/25/21 03/25/21 03/25/21 Range/Units 10:49 10:49 14:12 WBC (4.8-10.8) X10*3/uL RBC (4.20-5.50) X10*6/uL Hgb (12.0-16.0) g/dl Hct (37.0-47.0) % MCV (80.0-98.0) fL MCH (27.0-33.0) pg MCHC (31.0-35.0) g/dl RDW (11.0-16.0) % Plt Count (160-400) X10*3/uL MPV (9.4-12.3) fL Immature Gran % (Auto) (0.0-0.4) % Neut % (Auto) (45-73) % Lymph % (Auto) (20-40) % Carver % (Auto) (2-11) % Eos % (Auto) (0-4) % Baso % (Auto) (0-2) % Lymph # (Auto) (1.2-4.9) X10*3/uL Carver # (Auto) (0.1-1.2) X10*3/uL Eos # (Auto) (0.0-0.4) X10*3/uL Baso # (Auto) (0.0-0.2) X10*3/uL Abs Immat Gran (auto) (0.00-0.03) X10*3/uL Absolute Neuts (auto) (2.0-8.3) x10*3/uL Absolute Nucleated RBC (0.0-0.012) X10*3/uL Nucleated RBC % (auto) (0.0-0.2) /100WBC Smear Tech's Comments PT (9.9-13.0) SEC INR (0.9-1.1) APTT (24.1-38.0) SEC Sodium (135-145) mmol/L Potassium (3.3-5.1) mmol/L Chloride (96-108) mmol/L Carbon Dioxide (22-29) mmol/L Anion Gap (12-20) BUN (9-16) mg/dL Creatinine (0.5-1.4) mg/dL Estim Creat Clear Calc Estimated GFR Random Glucose (60-115) mg/dL Lactic Acid 1.5 (0.5-2.0) mmol/L Calcium (8.4-10.2) mg/dL Magnesium (1.6-2.6) mg/dL Total Bilirubin (0.0-1.0) mg/dL Direct Bilirubin (0.0-0.5) mg/dL AST (5-31) U/L ALT (0-31) U/L Alkaline Phosphatase (39-117) U/L Troponin I High Sens < 3.5 (<3.5-17.0) ng/L Total Protein (6.5-8.0) g/dL Albumin (3.5-5.0) g/dL Urine Color Urine Appearance Urine pH (5.0-8.0) Ur Specific Blackwood (1.005-1.025) Urine Protein (NEG-TRACE) MG/DL Urine Glucose (UA) (NEG) MG/DL Urine Ketones (NEG) MG/DL Urine Blood (NEG) Urine Nitrite (NEG) Ur Leukocyte Esterase (NEG) Urine RBC (0) /HPF Urine WBC (0-4) /HPF Ur Squamous Epith Cells /LPF Urine Bacteria /LPF Hyaline Casts /LPF Urine Yeast /HPF COVID-19 (THEA) Negative (Negative) COVID-19 Clin Com See Note 03/25/21 Range/Units 14:24 WBC (4.8-10.8) X10*3/uL RBC (4.20-5.50) X10*6/uL Hgb (12.0-16.0) g/dl Hct (37.0-47.0) % MCV (80.0-98.0) fL MCH (27.0-33.0) pg MCHC (31.0-35.0) g/dl RDW (11.0-16.0) % Plt Count (160-400) X10*3/uL MPV (9.4-12.3) fL Immature Gran % (Auto) (0.0-0.4) % Neut % (Auto) (45-73) % Lymph % (Auto) (20-40) % Carver % (Auto) (2-11) % Eos % (Auto) (0-4) % Baso % (Auto) (0-2) % Lymph # (Auto) (1.2-4.9) X10*3/uL Carver # (Auto) (0.1-1.2) X10*3/uL Eos # (Auto) (0.0-0.4) X10*3/uL Baso # (Auto) (0.0-0.2) X10*3/uL Abs Immat Gran (auto) (0.00-0.03) X10*3/uL Absolute Neuts (auto) (2.0-8.3) x10*3/uL Absolute Nucleated RBC (0.0-0.012) X10*3/uL Nucleated RBC % (auto) (0.0-0.2) /100WBC Smear Tech's Comments PT (9.9-13.0) SEC INR (0.9-1.1) APTT (24.1-38.0) SEC Sodium (135-145) mmol/L Potassium (3.3-5.1) mmol/L Chloride (96-108) mmol/L Carbon Dioxide (22-29) mmol/L Anion Gap (12-20) BUN (9-16) mg/dL Creatinine (0.5-1.4) mg/dL Estim Creat Clear Calc Estimated GFR Random Glucose (60-115) mg/dL Lactic Acid (0.5-2.0) mmol/L Calcium (8.4-10.2) mg/dL Magnesium (1.6-2.6) mg/dL Total Bilirubin (0.0-1.0) mg/dL Direct Bilirubin (0.0-0.5) mg/dL AST (5-31) U/L ALT (0-31) U/L Alkaline Phosphatase (39-117) U/L Troponin I High Sens (<3.5-17.0) ng/L Total Protein (6.5-8.0) g/dL Albumin (3.5-5.0) g/dL Urine Color YELLOW Urine Appearance HAZY Urine pH 6.0 (5.0-8.0) Ur Specific Blackwood 1.010 (1.005-1.025) Urine Protein 1+ H (NEG-TRACE) MG/DL Urine Glucose (UA) NEG (NEG) MG/DL Urine Ketones NEG (NEG) MG/DL Urine Blood NEG (NEG) Urine Nitrite NEG (NEG) Ur Leukocyte Esterase TRACE H (NEG) Urine RBC 0 (0) /HPF Urine WBC 5-9 H (0-4) /HPF Ur Squamous Epith Cells 2+ /LPF Urine Bacteria TRACE /LPF Hyaline Casts 0-2 /LPF Urine Yeast TRACE /HPF COVID-19 (THEA) (Negative) COVID-19 Clin Com Imaging Data Venous US: Attestation: I personally reviewed and interpreted this imaging study as follows: Radiologist's impression: FINDINGS: There is extensive occlusive acute-appearing thrombus in the left common femoral, superficial femoral, profunda femoral, and popliteal veins and visualized peroneal and posterior tibial veins in the calf. There is thrombus in the visualized left greater saphenous vein. US/US venous duplex LE LT IMPRESSION: Large occlusive left leg DVT. ? arterial US: Attestation: I personally reviewed and interpreted this imaging study as follows: Radiologist's impression: FINDINGS: There is evidence of atherosclerotic disease. No visible stenosis or occlusion is seen. Peak systolic velocities and waveforms: Left common femoral artery: 182 cm/s, triphasic Profunda: 105 cm/s, biphasic Proximal mid and distal SFA: 174 cm/s, 99 cm/s and 95 cm/s and biphasic Popliteal artery: 57 cm/s and biphasic Posterior tibial artery: 97 cm/s and biphasic.? US/US arterial duplex LE LT IMPRESSION: Atherosclerotic plaque and mild atherosclerotic disease. No thrombus or hemodynamically significant stenosis seen. Ct abdomen/pelvis/chest/head: Attestation: I personally reviewed and interpreted this imaging study as follows: Radiologist's impression: IMPRESSION: No acute intracranial process seen. There is left frontal parasagittal calcified mass likely meningioma. ? No evidence of PE or aortic dissection. ? Diffuse emphysema, multiple small bony nodules and chronic changes are stable to previous CT chest exam. ? There is right paratracheal and right hilar abnormal lymph nodes, stable. ? 2 hypodense lesion in the right lobe are suspicious for malignancy. There is mild hepatomegaly. ? Colonic diverticulosis without diverticulitis. ECG Data Attestation EKG: I personally reviewed and interpreted this ECG as follows: ECG interpretation date: 03/25/21 ECG interpretation time: 10:53 Interpretation: Normal sinus rhythm with a rate of 76, normal NV, QRS normal QT Critical Care Time Critical Care Time Critical Care Time: Yes Total Critical Care Time: 60 Attestation: Discussion with vascular, discussion with Oncology, discussion with admission team, discussion with radiologist, re-evaluations of the patient is neurovascular status Discharge Plan Discharge Clinical Impression: Deep vein thrombosis of lower extremity Patient Disposition: Admitted As Inpatient
--- NOTE | 2021-03-25 10:44 | PHA.MEDREC ---
Pharmacy Consult ? Medication Reconciliation Pharmacy has completed the medication reconciliation.
[2021-03-25 11:02] LABS: Basophils Percent Auto 0.2 % (0-2); Eosinophils Absolute Auto 0.1 X10*3/uL (0.0-0.4); Eosinophils Percent Auto 0.7 % (0-4); Hematocrit 35.2 % (37.0-47.0); Hemoglobin 10.6 g/dl (12.0-16.0); Imm Gran Abs Auto 0.04 X10*3/uL (0.00-0.03); Imm Gran Pct Auto 0.5 % (0.0-0.4); Lymphocytes Absolute Auto 0.9 X10*3/uL (1.2-4.9); Lymphocytes Percent Auto 10.6 % (20-40); MANUAL DIFF FLAG SCAN; Mean Corpuscular HGB Conc 30.1 g/dl (31.0-35.0); Mean Corpuscular Hemoglobin 23.9 pg (27.0-33.0); Mean Corpuscular Volume 79.3 fL (80.0-98.0); Mean Platelet Volume 9.7 fL (9.4-12.3); Monocytes Percent Auto 0.5 % (2-11); Neutrophils Absolute Auto 7.3 x10*3/uL (2.0-8.3); Neutrophils Percent Auto 87.5 % (45-73); Platelet Count 180 X10*3/uL (160-400); Red Blood Count 4.44 X10*6/uL (4.20-5.50); Red Cell Distribution Width 17.4 % (11.0-16.0); SCAN SMEAR FLAG 1; White Blood Count 8.3 X10*3/uL (4.8-10.8)
[2021-03-25 11:09] LABS: Prothrombin Time 11.9 SEC (9.9-13.0)
[2021-03-25 11:11] LABS: Partial Thromboplastin Time 29.4 SEC (24.1-38.0)
[2021-03-25 11:15] LABS: Lactic Acid 1.5 mmol/L (0.5-2.0)
[2021-03-25 11:17] LABS: Alanine Aminotransferase 14 U/L (0-31); Albumin Level 3.8 g/dL (3.5-5.0); Alkaline Phosphatase 66 U/L (39-117); Anion Gap 15 (12-20); Aspartate Amino Transferase 20 U/L (5-31); Bilirubin Direct 0.3 mg/dL (0.0-0.5); Bilirubin Total 0.7 mg/dL (0.0-1.0); Blood Urea Nitrogen 23 mg/dL (9-16); Calcium 9.5 mg/dL (8.4-10.2); Carbon Dioxide 21 mmol/L (22-29); Chloride 101 mmol/L (96-108); Creatinine Clr Calc Pharmacy 46.4; Estimated Glomerular Filt Rate 47; Glucose Random 196 mg/dL (60-115); Magnesium 1.8 mg/dL (1.6-2.6); Potassium 4.8 mmol/L (3.3-5.1); Sodium 132 mmol/L (135-145); Total Protein 7.6 g/dL (6.5-8.0)
[2021-03-25 11:21] LABS: Troponin-I High Sensitivity < 3.5 ng/L (<3.5-17.0)
[2021-03-25 11:37] LABS: SLIDE REVIEW VERIFIED
[2021-03-25] MEDS: Morphine Sulfate 4 MG/ML CARTRIDGE IVPUSH (11:42)
[2021-03-25] MEDS: iohexoL 350 MG/ML 100 ML INFUS..BTL IV (13:05)
[2021-03-25 14:32] LABS: Appearance Urine HAZY; Color Urine YELLOW; Glucose Urine UA NEG (NEG); Leukocyte Esterase Urine TRACE (NEG); Nitrite Urine NEG (NEG); UACC Culture Trigger YES; Urine Blood NEG (NEG); Urine Ketones NEG (NEG); Urine Protein 1+ MG/DL (NEG-TRACE)
[2021-03-25 14:44] LABS: Squamous Epithelial Cell Urine 2+ /LPF
[2021-03-25 14:46] LABS: Hyaline Casts Urine 0-2 /LPF
[2021-03-25 14:47] LABS: Bacteria Urine TRACE /LPF; RBC Urine 0 /HPF (0)
[2021-03-25 14:49] LABS: COVID-19 Test Negative (Negative)
[2021-03-25 14:57] LABS: Hematocrit 35.6 % (37.0-47.0); Hemoglobin 10.6 g/dl (12.0-16.0); Mean Corpuscular HGB Conc 29.8 g/dl (31.0-35.0); Mean Corpuscular Hemoglobin 23.9 pg (27.0-33.0); Mean Corpuscular Volume 80.4 fL (80.0-98.0); Mean Platelet Volume 9.7 fL (9.4-12.3); Platelet Count 156 X10*3/uL (160-400); Red Blood Count 4.43 X10*6/uL (4.20-5.50); Red Cell Distribution Width 17.4 % (11.0-16.0); White Blood Count 8.8 X10*3/uL (4.8-10.8)
--- NOTE | 2021-03-25 14:58 | P.HPHOSP_ITS ---
History of Present Illness Date of Service: 03/25/21 Attending physician on admission: Alice Hernandez Chief Complaint: dvt left leg 80-year-old female with past medical history of COPD, diabetes, hypertension, metastatic lung cancer/ small cell lung cancer ? recently On chemo- recently manju ated for hypoglycemia and UTI, came to the hospital that over the late evening she started having pain, swelling, discoloration- decided to come to the hospital because of that. she does not have any history of DVT or PE. Denies any new complaint of chest pain or shortness of breath or abdominal pain or fever or chills or nausea or vomiting Denies any cough Denies any weakness or numbness. Lab imaging reviewed: has extensive left leg DVT, no PE mild viri ekg -unchanged. mild anemia /thrombocytopenia ED physician discussed the case with vascular Dr. Acuña: Currently no vascular intervention recommended accept starting the patient on IV AC. Discussed with Oncology/Hematology Dr. Morales: recommended to continue IV heparin currently. Review of Systems Review of Systems: as above. Yes all other systems are reviewed and are negative [facility] Medical History COPD (chronic obstructive pulmonary disease) Diabetes mellitus, type 2 Hypertension Family History Mother Breast cancer Diabetes HTN (hypertension) Father Lung cancer Surgical History History of section Social History Household Members: Other Housing: House Do you presently have visiting nurse or other home services: Yes Alcohol intake: never Patient Tobacco Use Status: Former Tobacco user Tobacco use type: Cigarette service: No Current occupational status: retired Meds Allergies Allergy/AdvReac Type Severity Reaction Status Date / Time No Known Drug Allergies Allergy Unknown Verified 03/11/21 07:49 Active Medications: Current Medications Heparin Sodium (Porcine) (Heparin Sodium,Porcine 5,000 Unit/Ml Vial) 4,100 unit 40 unit/kg (4100 unit) IVPUSH PROTOCOL BOLUS PRN; Protocol PRN Reason: 40 unit/kg - Heparin Protocol Heparin Sodium (Porcine) (Heparin Sodium,Porcine 5,000 Unit/Ml Vial) 8,200 unit 80 unit/kg (8200 unit) IVPUSH PROTOCOL BOLUS PRN; Protocol PRN Reason: 80 unit/kg - Heparin Protocol Heparin Sodium/Sodium Chloride () 25,000 unit in 250 mls @ 0 mls/hr IVCONT .Q0M [facility]; Protocol Pharmacy Consult (Consult Rx Perform Med Rec) 1 each MISCELLANE ONCE PRN PRN Reason: Consult order Sodium Chloride (0.9 % Sodium Chloride Flush 3 Ml Syringe) 3 ml IVFLUSH QSHIFT [facility] Home Medications Medication Instructions Recorded Confirmed Last Taken Type citalopram 20 mg tablet 2 tab PO DAILY 02/28/21 03/25/21 03/24/21 History glipizide 5 mg tablet 2 tab PO BID 02/28/21 03/25/21 03/24/21 History insulin glargine 100 unit/mL (3 30 unit SUBCUT BEDTIME 02/28/21 03/25/21 03/24/21 History mL) subcutaneous pen (Lantus Solostar U-100 Insulin) ipratropium 0.5 mg-albuterol 3 mg 3 ml INHALATION BID 02/28/21 03/25/21 03/24/21 History (2.5 mg base)/3 mL nebulization soln irbesartan 75 mg tablet 1 tab PO DAILY 02/28/21 03/25/21 03/24/21 History metformin 500 mg tablet,extended 2 tab PO BID 02/28/21 03/25/21 03/24/21 History release 24 hr montelukast 10 mg tablet 1 tab PO QPM 02/28/21 03/25/21 03/24/21 History oxybutynin chloride 5 mg tablet 1 tab PO TID PRN 02/28/21 03/25/21 03/24/21 History pantoprazole 40 mg tablet,delayed 1 tab PO DAILY 02/28/21 03/25/21 03/24/21 History release pravastatin 40 mg tablet 1 tab PO DAILY 02/28/21 03/25/21 03/24/21 History tiotropium bromide 2.5 2 puff PO DAILY 02/28/21 03/25/21 03/24/21 History mcg/actuation mist for inhalation (Spiriva Respimat) Physical Exam Vital Signs and Narrative: Vital Signs: Last Vital Signs Temp 98.5 F 03/25/21 14:21 Pulse 88 03/25/21 14:21 Resp 16 03/25/21 14:21 BP 126/71 03/25/21 14:21 Pulse Ox 97 03/25/21 14:21 Oxygen Flow Rate 2 03/25/21 09:03 BMI result Body Mass Index 38.9 Physical exam: Appearance: Alert.? Oriented X3.? not in distress.? Eyes: Pupils equal, round and reactive to light.? Sclera nonicteric.? ENT: Pharynx normal.? Moist mucous membranes. cvs: rrr, [id number] , no murmur res: clear to auscultation ,no rhonchii or wheezing abd: no rebound or guarding ,nt, bs present. ext pulses present please see left leg picture in ED note. neuro: axo3 , nonfocal. Extrem: Other: This skin is warm to touch. The patient is able to flex and extend the foot with no difficulty. There is tenderness diffuse. ? The patient is able to flex and extend the foot with no difficulty.? There is tenderness diffusely over the leg.? The compartments are soft and compressible.? Faint DP p ulse palpated. Results Labs CBC and Chem 7: 03/28/21 06:25 03/27/21 06:40 Labs: Laboratory Results - last 24 hr 03/25/21 03/25/21 03/25/21 10:49 10:49 10:49 MCV 79.3 L MCH 23.9 L MCHC 30.1 L RDW 17.4 H Plt Count 180 D MPV 9.7 Immature Gran % (Auto) 0.5 H Neut % (Auto) 87.5 H Lymph % (Auto) 10.6 L [place] % (Auto) 0.5 L Eos % (Auto) 0.7 Baso % (Auto) 0.2 Lymph # (Auto) 0.9 L [place] # (Auto) 0.0 L Eos # (Auto) 0.1 Baso # (Auto) 0.0 Abs Immat Gran (auto) 0.04 H Absolute Neuts (auto) 7.3 Absolute Nucleated RBC 0.000 Nucleated RBC % (auto) 0.0 Smear Tech's Comments VERIFIED PT 11.9 INR 1.0 APTT 29.4 Anion Gap 15 Estim Creat Clear Calc 46.4 Estimated GFR 47 Random Glucose 196 H Lactic Acid Calcium 9.5 Magnesium 1.8 Total Bilirubin 0.7 Direct Bilirubin 0.3 AST 20 ALT 14 Alkaline Phosphatase 66 Troponin I High Sens Total Protein 7.6 Albumin 3.8 Urine Color Urine Appearance Urine pH Ur Specific [place] Urine Protein Urine Glucose (UA) Urine Ketones Urine Blood Urine Nitrite Ur Leukocyte Esterase Urine RBC Urine WBC Ur Squamous Epith Cells Urine Bacteria Hyaline Casts Urine Yeast COVID-19 (THEA) COVID-19 Clin Com 03/25/21 03/25/21 03/25/21 10:49 10:49 14:12 MCV MCH MCHC RDW Plt Count MPV Immature Gran % (Auto) Neut % (Auto) Lymph % (Auto) [place] % (Auto) Eos % (Auto) Baso % (Auto) Lymph # (Auto) [place] # (Auto) Eos # (Auto) Baso # (Auto) Abs Immat Gran (auto) Absolute Neuts (auto) Absolute Nucleated RBC Nucleated RBC % (auto) Smear Tech's Comments PT INR APTT Anion Gap Estim Creat Clear Calc Estimated GFR Random Glucose Lactic Acid 1.5 Calcium Magnesium Total Bilirubin Direct Bilirubin AST ALT Alkaline Phosphatase Troponin I High Sens < 3.5 Total Protein Albumin Urine Color Urine Appearance Urine pH Ur Specific [place] Urine Protein Urine Glucose (UA) Urine Ketones Urine Blood Urine Nitrite Ur Leukocyte Esterase Urine RBC Urine WBC Ur Squamous Epith Cells Urine Bacteria Hyaline Casts Urine Yeast COVID-19 (THEA) Negative COVID-19 Clin Com See Note 03/25/21 03/25/21 14:24 14:47 MCV 80.4 MCH 23.9 L MCHC 29.8 L RDW 17.4 H Plt Count 156 L MPV 9.7 Immature Gran % (Auto) Neut % (Auto) Lymph % (Auto) [place] % (Auto) Eos % (Auto) Baso % (Auto) Lymph # (Auto) [place] # (Auto) Eos # (Auto) Baso # (Auto) Abs Immat Gran (auto) Absolute Neuts (auto) Absolute Nucleated RBC 0.000 Nucleated RBC % (auto) 0.0 Smear Tech's Comments PT INR APTT Anion Gap Estim Creat Clear Calc Estimated GFR Random Glucose Lactic Acid Calcium Magnesium Total Bilirubin Direct Bilirubin AST ALT Alkaline Phosphatase Troponin I High Sens Total Protein Albumin Urine Color YELLOW Urine Appearance HAZY Urine pH 6.0 Ur Specific [place] 1.010 Urine Protein 1+ H Urine Glucose (UA) NEG Urine Ketones NEG Urine Blood NEG Urine Nitrite NEG Ur Leukocyte Esterase TRACE H Urine RBC 0 Urine WBC 5-9 H Ur Squamous Epith Cells 2+ Urine Bacteria TRACE Hyaline Casts 0-2 Urine Yeast TRACE COVID-19 (THEA) COVID-19 Clin Com Imaging Radiologist's Impressions: Impressions Venous Duplex 03/25/21 09:55 IMPRESSION: Large occlusive left leg DVT. Findings were communicated to Kaycee Prince by telephone on 03/25/2021 10:55 AM. Duplex Scan Lower Extremity Artery 03/25/21 10:06 IMPRESSION: Atherosclerotic plaque and mild atherosclerotic disease. No thrombus or hemodynamically significant stenosis seen. Head CT 03/25/21 13:05 IMPRESSION: No acute intracranial process seen. There is left frontal parasagittal calcified mass likely meningioma. No evidence of PE or aortic dissection. Diffuse emphysema, multiple small bony nodules and chronic changes are stable to previous CT chest exam. There is right paratracheal and right hilar abnormal lymph nodes, stable. 2 hypodense lesion in the right lobe are suspicious for malignancy. There is mild hepatomegaly. Colonic diverticulosis without diverticulitis. Abdomen/Pelvis CT 03/25/21 13:07 IMPRESSION: No acute intracranial process seen. There is left frontal parasagittal calcified mass likely meningioma. No evidence of PE or aortic dissection. Diffuse emphysema, multiple small bony nodules and chronic changes are stable to previous CT chest exam. There is right paratracheal and right hilar abnormal lymph nodes, stable. 2 hypodense lesion in the right lobe are suspicious for malignancy. There is mild hepatomegaly. Colonic diverticulosis without diverticulitis. Chest CTA 03/25/21 13:07 IMPRESSION: No acute intracranial process seen. There is left frontal parasagittal calcified mass likely meningioma. No evidence of PE or aortic dissection. Diffuse emphysema, multiple small bony nodules and chronic changes are stable to previous CT chest exam. There is right paratracheal and right hilar abnormal lymph nodes, stable. 2 hypodense lesion in the right lobe are suspicious for malignancy. There is mild hepatomegaly. Colonic diverticulosis without diverticulitis. Assessment and Plan (1) VIRI (acute kidney injury): Status: Acute (2) Deep vein thrombosis of lower extremity: Status: Acute 80-year-old female with past medical history of COPD, diabetes , hypertension, metastatic lung cancer/ small cell lung cancer ,recent uti-came to hospital With extensive left leg DVT. 1. Extensive left leg DVT no pulm embolism started on iv heparin in ED, follow pt/ptt/inr as per protocol 2. viri: gentle hydration 3. recent uti: added ceftin ?? 4. dm with hypoglycemia: ?fs with adjusted sliding scale coverage. 5. hypertension:? hold irbesartan due to viri , added amlodipine. 6. COPD:? Continue p.r.n.? nebs. 7. ? metastatic small cell lung cancer:? Management as per Oncology outpatient. ? ? DVT prophylaxis:? SubQ heparin Quality Stroke Does the patient have a stroke diagnosis?: No VTE Prior VTE?: No VTE Risk Level:: Medical - moderate - high VTE Device Contraindication: N/A - Device Ordered VTE Drug Contraindication: N/A - Med Ordered
[2021-03-25 15:02] LABS: Prothrombin Time 11.7 SEC (9.9-13.0)
[2021-03-25 15:05] LABS: PTT Heparin Drip 32.5 SEC (53-77.9)
[2021-03-25] MEDS: Heparin Sodium,Porcine/1/2NS 25,000 UNIT/250 ML IV.SOLN 10 UNIT IVCONT (15:20)
--- NOTE | 2021-03-25 15:30 | PC.NURSE ---
Pt A&Ox3, pain 5/10 at this time, MD made aware as no Pain meds ordered at this time. Heparin drip started, PPT due at 2114. Snack provided to pt at this time. Will continue to [facility].
--- NOTE | 2021-03-25 16:37 | MHC.CM.PN ---
Cm met with pt admitted to observation with bed assignment pending. Pt was admitted on 03/23- for hypoglycemia. GAMBINO reviewed and signed 03/25/2021@1610. Copy given and to medical records. HCP not on file. Copy requested. HCP/son Jarrett Denney ([phone]). Pt started chemotherapy this week with Dr. Mendoza for metastatic small cell lung cancer (liver lesions). Has [facility] services; will refer to follow. Fully vaccinated and boosted with Moderna. Pt has had Fl shot. Pt lives in her home with her granddaughter, Candace Denney ([phone]). Pt lost her of 56 years this past January. Uses a walker, nebulizer and home oxygen at 2L. Requested CM contact her [employer] Jennifer Malik at [facility] in [place]. CM called ([phone]) and left a message requesting copy holder to visit pt at her request. D/C plan is home with resumption of [facility] services. Family to provide transportation home.
[2021-03-25] MEDS: Morphine Sulfate 4 MG/ML CARTRIDGE 3 MG IVPUSH (16:41)
[2021-03-25] MEDS: Lactated Ringers 1,000 ML 80 ML IVCONT (16:42)
[2021-03-25 18:19] LABS: Glucose, Whole Blood 214 mg/dL (60-115)
--- NOTE | 2021-03-25 18:28 | PC.NURSE ---
Pt questioned insulin as when she was DC'd yesterday she was told no insulin, per DR Travis, ok to skip insulin with dinner, BG 214. Set up with dinner tray, no complaints of pain at this time. Call so within reach will continue to monitor.
--- NOTE | 2021-03-25 19:19 | PC.NURSE ---
This RN to bedside, assuming care of pt at this time. Pt aaox4, resting on stretcher in NAD, breathing with ease on baseline 2L NC, denies pain at this time but reports discomfort from stretcher. Pt repositioned to meet comfort needs. This RN finds pt not on tele monitor despite documentation stating such. Pt with only one PIV in place despite active infusion of high risk med heparin. This RN placed pt on cash management coordinator, stopped infusion of LR at this time, to attempt second PIV to continue infusion of LR. PTT HD due at 2114 as ordered. Pt stretcher in lowest locked position, rails raised, call so within reach.
--- NOTE | 2021-03-25 19:42 | PC.NURSE ---
Dr Magallanes called regarding pausing of pt's LR d/t pt with only one IV access. MD also aware of pt's VS including BP without signs of bleeding. Per provider, ok to pause LR at this time as heparin takes precedence over fluids. Pt offers no complaints at this time. Stretcher in lowest locked position, rails raised, call so within reach. Pt verbalizes understanding of use of callbell.
[2021-03-25] MEDS: Albuterol/Iprat 2.5/0.5MG 3 ML AMPUL.NEB INHALE (20:18)
[2021-03-25 21:31] LABS: PTT Heparin Drip 39.6 SEC (53-77.9)
[2021-03-25 22:03] LABS: Glucose, Whole Blood 213 mg/dL (60-115)
[2021-03-25] MEDS: Montelukast Sodium 10 MG TABLET PO (22:19)
[2021-03-25] MEDS: Heparin Sodium,Porcine 5,000 UNIT/ML VIAL 4100 UNIT IVPUSH (22:58)
--- NOTE | 2021-03-25 23:03 | PC.NURSE ---
pt given heparin prn dose as indicated and gtt increased per protocol as charted with clau lees rn as witness. no signs of bleeding. pt's vss.
--- NOTE | 2021-03-25 23:06 | PC.NURSE ---
Dr Magallanes made aware that pt refused lispro dose.
[2021-03-26] VITALS (7 sets, daily range): BP systolic 107–131; BP diastolic 53–70; PULSE 69–84; RESP 12–20; TEMP 36.4–36.9; O2SAT 94–98
--- NOTE | 2021-03-26 01:39 | PC.NURSE ---
When this RN titrated heparin gtt at 2300, heparin gtt was increased 2units/kg/hr per protocol with LETI Mcgregor as witness as charted, however, this RN incorrectly documented the increase to 11.8 units/kg/hr into the mls/hr row. This RN gave report to LETI Phillips in ED Overflow who verified that dosing was correct on pump despite incorrect entry into MAR as reported above. This RN to ED Overflow unit to verify correct dosing with Jacqueline who cosigned as documented. This RN and Jacqueline LANDEROS noted that initial dose (10mls/hr) was 9.7 units/kg/hr. Therefore, per protocol, an increase of 2 units/kg/hr is 11.7 units/kg/hr. Heparin gtt changed from 11.8 units/kg/hr to 11.8 units/kg/hr as indicated in MAR. Jacqueline LANDEROS as witness as charted. Pt without signs of bleeding. Jacqueline LANDEROS aware of need for ptt HD at 0500 today.
[2021-03-26] MEDS: Morphine Sulfate 4 MG/ML CARTRIDGE 3 MG IVPUSH ×4 (04:06→21:15)
--- NOTE | 2021-03-26 04:13 | PC.NURSE ---
left leg 3+edema, warm to touch. Morphine 3mg given for pain with good effect. Patient chapo, speaking of her who passed in January.
[2021-03-26 05:45] LABS: Prothrombin Time 11.9 SEC (9.9-13.0)
[2021-03-26 05:48] LABS: PTT Heparin Drip 60.9 SEC (53-77.9)
[2021-03-26 07:02] LABS: Hematocrit 34.2 % (37.0-47.0); Hemoglobin 10.3 g/dl (12.0-16.0); Mean Corpuscular HGB Conc 30.1 g/dl (31.0-35.0); Mean Corpuscular Hemoglobin 24.2 pg (27.0-33.0); Mean Corpuscular Volume 80.3 fL (80.0-98.0); Mean Platelet Volume 9.6 fL (9.4-12.3); Platelet Count 134 X10*3/uL (160-400); Red Blood Count 4.26 X10*6/uL (4.20-5.50); Red Cell Distribution Width 17.3 % (11.0-16.0)
[2021-03-26] MEDS: Omeprazole 20 MG CAPSULE.DR PO (07:22)
[2021-03-26 07:50] LABS: Glucose, Whole Blood 203 mg/dL (60-115)
--- NOTE | 2021-03-26 08:07 | PC.NURSE ---
patient a&ox3, rod filler nsr 80s, heparin drip running per order, ble 3+ edema, pt c/o pain 07/17 but at this time refusing the need for pain medications, pt 2L home o2 dependent, call so within reach, will continue to monitor
[2021-03-26] MEDS: Albuterol/Iprat 2.5/0.5MG 3 ML AMPUL.NEB INHALE (08:25)
[2021-03-26 08:47] LABS: Anion Gap 13 (12-20); Blood Urea Nitrogen 35 mg/dL (9-16); Calcium 9.4 mg/dL (8.4-10.2); Carbon Dioxide 24 mmol/L (22-29); Chloride 100 mmol/L (96-108); Creatinine Clr Calc Pharmacy 43.6; Estimated Glomerular Filt Rate 44; Glucose Random 243 mg/dL (60-115); Potassium 5.3 mmol/L (3.3-5.1); Sodium 132 mmol/L (135-145)
[2021-03-26 08:50] LABS: PTT Heparin Drip 62.1 SEC (53-77.9)
[2021-03-26] MEDS: Escitalopram Oxalate 20 MG TABLET PO (09:20)
--- NOTE | 2021-03-26 09:21 | PC.NURSE ---
patient medicated per order
--- NOTE | 2021-03-26 09:27 | PC.NURSE ---
patient medicated for pain per pt request
[2021-03-26 11:16] LABS: Glucose, Whole Blood 229 mg/dL (60-115)
[2021-03-26 11:18] LABS: Hemoglobin 11.6 g/dl (12.0-16.0); Mean Corpuscular HGB Conc 29.7 g/dl (31.0-35.0); Mean Corpuscular Hemoglobin 24.3 pg (27.0-33.0); Mean Corpuscular Volume 81.8 fL (80.0-98.0); Mean Platelet Volume 9.6 fL (9.4-12.3); Platelet Count 114 X10*3/uL (160-400); Red Blood Count 4.77 X10*6/uL (4.20-5.50); Red Cell Distribution Width 17.6 % (11.0-16.0); White Blood Count 8.2 X10*3/uL (4.8-10.8)
[2021-03-26 11:29] LABS: Prothrombin Time 11.4 SEC (9.9-13.0)
[2021-03-26 11:32] LABS: Partial Thromboplastin Time 27.1 SEC (24.1-38.0)
[2021-03-26] MEDS: Enoxaparin Sodium 100 MG/ML SYRINGE SUBCUT ×2 (11:32→21:16)
[2021-03-26] MEDS: Lactated Ringers 1,000 ML 80 ML IVCONT ×2 (11:32→21:13)
--- NOTE | 2021-03-26 11:40 | PC.NURSE ---
heparin drip stopped pt medicated with lovenox per order, ivf running per order, pt states her pain is better, tech to get pt oob to recliner
--- NOTE | 2021-03-26 12:42 | PC.NURSE ---
patient is oob to recliner chair per provider request, patient is comfortable at this time, will continue to monitor.
--- NOTE | 2021-03-26 13:54 | PC.NURSE ---
patient was sleeping, woke to verbal stimulus, she is oob in the chair- pt ate 25% of her lunch- she stated I hate a really big breakfast, I am not that hungry right now , ivf running per order, will continue to monitor.
--- NOTE | 2021-03-26 14:44 | P.PNIM_ITS ---
Subjective Subjective Date of Service: 03/26/21 Interval History: dvt ,viri Review of Systems leg pain and colour changes seems slowly improvin Physical Exam Vital Signs: Vital Signs: Last Vital Signs Temp 98.0 F 03/26/21 13:14 Pulse 82 03/26/21 13:14 Resp 16 03/26/21 13:14 BP 131/70 03/26/21 13:14 Pulse Ox 94 03/26/21 13:14 Oxygen Flow Rate 2 03/25/21 09:03 BMI result Body Mass Index 38.9 Appearance: Alert.? Oriented X3.? not in distress.? Eyes: Pupils equal, round and reactive to light.? Sclera nonicteric.? ENT: Pharynx normal.? Moist mucous membranes. cvs: rrr, [id number] , no murmur res: clear to auscultation ,no rhonchii or wheezing abd: no rebound or guarding ,nt, bs present. ext pulses present please see left leg picture in ED note. neuro: axo3 , nonfocal. Objective Data Active Medications Albuterol/Ipratropium (Albuterol/Iprat 2.5/0.5mg 3 Ml Ampul.Neb) 3 ml INHALE RBID [facility] Last Admin: 03/26/21 08:25 Dose: 3 ml Documented by: IAN Cefuroxime Axetil (Cefuroxime Axetil 250 Mg Tablet) 250 mg PO BID [facility] Last Admin: 03/26/21 09:20 Dose: 250 mg Documented by: ETIENNE Dextrose (Dextrose 50 % 25 Gm/50 Ml Vial) 25 gm IVPUSH Q15M PRN; Protocol PRN Reason: per Hypoglycemia Standing Ord. Enoxaparin Sodium (Enoxaparin Sodium 100 Mg/Ml Syringe) 100 mg SUBCUT Q12H [facility] Last Admin: 03/26/21 11:32 Dose: 100 mg Documented by: ETIENNE Escitalopram Oxalate (Escitalopram Oxalate 20 Mg Tablet) 20 mg PO DAILY [facility] Last Admin: 03/26/21 09:20 Dose: 20 mg Documented by: ETIENNE Glucose (Glucose Gel 15 Gm Gel..Gram.) 15 gm PO Q15M PRN; Protocol PRN Reason: per Hypoglycemia Standing Ord. Lactated Ringer's (Lr) 1,000 mls @ 80 mls/hr IVCONT .[id number] [facility] Last Admin: 03/26/21 11:32 Dose: 80 mls/hr Documented by: ETIENNE Insulin Human Lispro (Insulin Lispro 100 Unit/Ml 3 Ml Vial) 0 unit SUBCUT QIDACHS [facility]; Protocol Last Admin: 03/26/21 11:19 Dose: Not Given Documented by: ETIENNE Non-Admin Reason: Patient Refused Montelukast Sodium (Montelukast Sodium 10 Mg Tablet) 10 mg PO BEDTIME [facility] Last Admin: 03/25/21 22:19 Dose: 10 mg Documented by: PATIENCE Morphine Sulfate (Morphine Sulfate 4 Mg/Ml Cartridge) 3 mg IVPUSH Q4H PRN; Protocol PRN Reason: Pain, Mild (Pain Scale 1-3) Last Admin: 03/26/21 09:25 Dose: 3 mg Documented by: ETIENNE Omeprazole (Omeprazole 20 Mg Capsule.Dr) 20 mg PO DAILY@0630 [facility] Last Admin: 03/26/21 07:22 Dose: 20 mg Documented by: NIKOLAY Ondansetron HCl (Ondansetron Odt 8 Mg Tab.Rapdis) 8 mg TRANSLINGU Q8H PRN PRN Reason: nausea Oxybutynin Chloride (Oxybutynin Chloride Er 5 Mg Tab.Er.24) 10 mg PO DAILY [facility] Last Admin: 03/26/21 09:20 Dose: 10 mg Documented by: ETIENNE Pharmacy Consult (Consult Rx Perform Med Rec) 1 each MISCELLANE ONCE PRN PRN Reason: Consult order Pravastatin Sodium (Pravastatin Sodium 40 Mg Tablet) 40 mg PO BEDTIME [facility] Sodium Chloride (0.9 % Sodium Chloride Flush 3 Ml Syringe) 3 ml IVFLUSH QSHIFT [facility] Last Admin: 03/26/21 08:04 Dose: Not Given Documented by: ETIENNE Non-Admin Reason: IV Running Labs CBC & Chem 7: 03/26/21 11:03 03/26/21 08:08 Labs: Laboratory Results - last 24 hr 03/25/21 03/25/21 03/25/21 14:12 14:24 14:47 MCV 80.4 MCH 23.9 L MCHC 29.8 L RDW 17.4 H Plt Count 156 L MPV 9.7 Absolute Nucleated RBC 0.000 Nucleated RBC % (auto) 0.0 PT INR APTT PTT (Heparin Protocol) Anion Gap Estim Creat Clear Calc Estimated GFR POC Glucose Random Glucose Calcium Urine RBC 0 Urine WBC 5-9 H Ur Squamous Epith Cells 2+ Urine Bacteria TRACE Hyaline Casts 0-2 Urine Yeast TRACE COVID-19 (THEA) Negative COVID-19 Clin Com See Note 03/25/21 03/25/21 03/25/21 14:47 18:14 21:11 MCV MCH MCHC RDW Plt Count MPV Absolute Nucleated RBC Nucleated RBC % (auto) PT 11.7 INR 1.0 APTT PTT (Heparin Protocol) 32.5 L 39.6 L D Anion Gap Estim Creat Clear Calc Estimated GFR POC Glucose 214 H Random Glucose Calcium Urine RBC Urine WBC Ur Squamous Epith Cells Urine Bacteria Hyaline Casts Urine Yeast COVID-19 (THEA) COVID-19 Clin Com 03/25/21 03/26/21 03/26/21 21:56 05:20 06:53 MCV 80.3 MCH 24.2 L MCHC 30.1 L RDW 17.3 H Plt Count 134 L MPV 9.6 Absolute Nucleated RBC 0.000 Nucleated RBC % (auto) 0.0 PT 11.9 INR 1.0 APTT PTT (Heparin Protocol) 60.9 D Anion Gap Estim Creat Clear Calc Estimated GFR POC Glucose 213 H Random Glucose Calcium Urine RBC Urine WBC Ur Squamous Epith Cells Urine Bacteria Hyaline Casts Urine Yeast COVID-19 (THEA) COVID-19 Clin Com 03/26/21 03/26/21 03/26/21 07:47 08:08 08:08 MCV MCH MCHC RDW Plt Count MPV Absolute Nucleated RBC Nucleated RBC % (auto) PT INR APTT PTT (Heparin Protocol) 62.1 Anion Gap 13 Estim Creat Clear Calc 43.6 Estimated GFR 44 POC Glucose 203 H Random Glucose 243 H Calcium 9.4 Urine RBC Urine WBC Ur Squamous Epith Cells Urine Bacteria Hyaline Casts Urine Yeast COVID-19 (THEA) COVID-19 Clin Com 03/26/21 03/26/21 03/26/21 11:03 11:03 11:13 MCV 81.8 MCH 24.3 L MCHC 29.7 L RDW 17.6 H Plt Count 114 L MPV 9.6 Absolute Nucleated RBC 0.000 Nucleated RBC % (auto) 0.0 PT 11.4 INR 1.0 APTT 27.1 PTT (Heparin Protocol) Anion Gap Estim Creat Clear Calc Estimated GFR POC Glucose 229 H Random Glucose Calcium Urine RBC Urine WBC Ur Squamous Epith Cells Urine Bacteria Hyaline Casts Urine Yeast COVID-19 (THEA) COVID-19 Clin Com Microbiology Microbiology Results: Microbiology 03/25/21 11:43 Blood Culture - Preliminary Blood - Venous No growth after 24 hours. 03/25/21 10:49 Blood Culture - Preliminary Blood - Venous No growth after 24 hours. Assessment and Plan (1) Deep vein thrombosis of lower extremity: Status: Acute (2) VIRI (acute kidney injury): Status: Acute Assessment and Plan: 80-year-old female with past medical history of COPD, diabetes , hypertension, metastatic lung cancer/ small cell lung cancer ,recent uti-came to hospital ? With extensive left leg DVT. ?1.? Extensive left leg DVT ?no pulm embolism stop heparin , started lovenox. 2. viri: gentle hydration 3. recent uti: added ceftin ?? 4. dm with hypoglycemia: ?fs with adjusted sliding scale coverage. 5. hypertension:? hold irbesartan due to viri , added amlodipine. 6. COPD:? Continue p.r.n.? nebs. 7. ? metastatic small cell lung cancer:? Management as per Oncology outpatient. ? Chest x-ray finding probably related to above. ? DVT prophylaxis:? SubQ heparin Quality Stroke Does the patient have a stroke diagnosis?: No VTE Prior VTE?: No VTE Risk Level:: Medical - moderate - high VTE Device Contraindication: N/A - Device Ordered VTE Drug Contraindication: N/A - Med Ordered
[2021-03-26] MEDS: Sodium Polystyrene Sulfon/Sorb 15 GM/60 ML ORAL.SUSP PO (15:40)
[2021-03-26] MEDS: Ondansetron ODT 8 MG TAB.RAPDIS TRANSLINGU (16:15)
--- NOTE | 2021-03-26 16:17 | PC.NURSE ---
patient a&ox3, oob to commode with assist, pt c/o increased pain with movement to commode, pt medicated with morphine per order, pt also c/o nausea, pt medicated for nausea per order, monitoring and evaluation advisor intact-nsr 80s, vss, will continue to monitor.
[2021-03-26 18:46] LABS: Glucose, Whole Blood 202 mg/dL (60-115)
[2021-03-26 20:47] LABS: Glucose, Whole Blood 253 mg/dL (60-115)
[2021-03-26] MEDS: Montelukast Sodium 10 MG TABLET PO (21:16)
[2021-03-26] MEDS: Insulin Lispro 100 UNIT/ML 3 ML VIAL SUBCUT (21:16)
[2021-03-26] MEDS: Pravastatin Sodium 40 MG TABLET PO (21:16)
[2021-03-27] VITALS (8 sets, daily range): BP systolic 95–125; BP diastolic 40–73; PULSE 73–92; RESP 14–80; TEMP 36.3–36.9; O2SAT 95–99
[2021-03-27] MEDS: Morphine Sulfate 4 MG/ML CARTRIDGE 3 MG IVPUSH ×3 (01:55→14:48)
[2021-03-27] MEDS: Omeprazole 20 MG CAPSULE.DR PO (06:40)
[2021-03-27 07:18] LABS: Hematocrit 30.3 % (37.0-47.0); Hemoglobin 9.1 g/dl (12.0-16.0); Mean Corpuscular Hemoglobin 23.9 pg (27.0-33.0); Mean Corpuscular Volume 79.7 fL (80.0-98.0); Mean Platelet Volume 10.6 fL (9.4-12.3); Platelet Count 134 X10*3/uL (160-400); Red Cell Distribution Width 17.2 % (11.0-16.0); White Blood Count 7.5 X10*3/uL (4.8-10.8)
[2021-03-27 07:30] LABS: Anion Gap 14 (12-20); Blood Urea Nitrogen 32 mg/dL (9-16); Calcium 8.9 mg/dL (8.4-10.2); Carbon Dioxide 24 mmol/L (22-29); Chloride 98 mmol/L (96-108); Creatinine Clr Calc Pharmacy 62.1; Estimated Glomerular Filt Rate > 60; Glucose Random 174 mg/dL (60-115); Potassium 4.5 mmol/L (3.3-5.1); Sodium 131 mmol/L (135-145)
[2021-03-27 07:31] LABS: Glucose, Whole Blood 170 mg/dL (60-115)
[2021-03-27] MEDS: Escitalopram Oxalate 20 MG TABLET PO (07:39)
--- NOTE | 2021-03-27 07:41 | PC.NURSE ---
patient a&ox3, nuclear monitoring technician intact nsr 80s, ivf running per order, 2l O2 nc, call so within reach, will continue to monitor.
[2021-03-27] MEDS: Albuterol/Iprat 2.5/0.5MG 3 ML AMPUL.NEB INHALE ×2 (08:19→19:58)
--- NOTE | 2021-03-27 08:37 | HO.PM.IMPN ---
Subjective Subjective Date of Service: 03/27/21 Interval History: dvt ,anemia Review of Systems still has leg pain , color seems improving denies any chest pain or sob or abdominal pain or nausea or vomiting Physical Exam Vital Signs: Vital Signs: Last Vital Signs Temp 98.0 F 03/27/21 04:28 Pulse 92 03/27/21 08:19 Resp 18 03/27/21 08:19 BP 98/53 L 03/27/21 04:28 Pulse Ox 95 03/27/21 01:43 Oxygen Flow Rate 2 03/25/21 09:03 BMI result Body Mass Index 38.9 Appearance: Alert.? Oriented X3.? not in distress.? Eyes: Pupils equal, round and reactive to light.? Sclera nonicteric.? ENT: Pharynx normal.? Moist mucous membranes. cvs: rrr, [id number] , no murmur res: clear to auscultation ,no rhonchii or wheezing abd: no rebound or guarding ,nt, bs present. ext pulses present please see left leg picture -seems improving neuro: axo3 , nonfocal. Objective Data Active Medications Albuterol/Ipratropium (Albuterol/Iprat 2.5/0.5mg 3 Ml Ampul.Neb) 3 ml INHALE RBID [facility] Last Admin: 03/27/21 08:19 Dose: 3 ml Documented by: EVA Cefuroxime Axetil (Cefuroxime Axetil 250 Mg Tablet) 250 mg PO BID [facility] Last Admin: 03/27/21 07:39 Dose: 250 mg Documented by: ETIENNE Dextrose (Dextrose 50 % 25 Gm/50 Ml Vial) 25 gm IVPUSH Q15M PRN; Protocol PRN Reason: per Hypoglycemia Standing Ord. Enoxaparin Sodium (Enoxaparin Sodium 100 Mg/Ml Syringe) 100 mg SUBCUT Q12H [facility] Last Admin: 03/26/21 21:16 Dose: 100 mg Documented by: ELIEZER Escitalopram Oxalate (Escitalopram Oxalate 20 Mg Tablet) 20 mg PO DAILY [facility] Last Admin: 03/27/21 07:39 Dose: 20 mg Documented by: ETIENNE Glucose (Glucose Gel 15 Gm Gel..Gram.) 15 gm PO Q15M PRN; Protocol PRN Reason: per Hypoglycemia Standing Ord. Insulin Human Lispro (Insulin Lispro 100 Unit/Ml 3 Ml Vial) 0 unit SUBCUT QIDACHS [facility]; Protocol Last Admin: 03/27/21 07:34 Dose: Not Given Documented by: ETIENNE Non-Admin Reason: No Insulin Coverage Montelukast Sodium (Montelukast Sodium 10 Mg Tablet) 10 mg PO BEDTIME [facility] Last Admin: 03/26/21 21:16 Dose: 10 mg Documented by: ELIEZER Morphine Sulfate (Morphine Sulfate 4 Mg/Ml Cartridge) 3 mg IVPUSH Q4H PRN; Protocol PRN Reason: Pain, Mild (Pain Scale 1-3) Last Admin: 03/27/21 01:55 Dose: 3 mg Documented by: ELIEZER Omeprazole (Omeprazole 20 Mg Capsule.Dr) 20 mg PO DAILY@0630 [facility] Last Admin: 03/27/21 06:40 Dose: 20 mg Documented by: ELIEZER Ondansetron HCl (Ondansetron Odt 8 Mg Tab.Rapdis) 8 mg TRANSLINGU Q8H PRN PRN Reason: nausea Last Admin: 03/26/21 16:15 Dose: 8 mg Documented by: ETIENNE Oxybutynin Chloride (Oxybutynin Chloride Er 5 Mg Tab.Er.24) 10 mg PO DAILY [facility] Last Admin: 03/27/21 07:39 Dose: 10 mg Documented by: ETIENNE Pharmacy Consult (Consult Rx Perform Med Rec) 1 each MISCELLANE ONCE PRN PRN Reason: Consult order Pravastatin Sodium (Pravastatin Sodium 40 Mg Tablet) 40 mg PO BEDTIME [facility] Last Admin: 03/26/21 21:16 Dose: 40 mg Documented by: ELIEZER Sodium Chloride (0.9 % Sodium Chloride Flush 3 Ml Syringe) 3 ml IVFLUSH QSHIFT ON [facility] Last Admin: 03/27/21 07:35 Dose: Not Given Documented by: ETIENNE Non-Admin Reason: IV Running Labs CBC & Chem 7: 03/27/21 06:40 03/27/21 06:40 Labs: Laboratory Results - last 24 hr 03/26/21 03/26/21 03/26/21 08:08 08:08 11:03 MCV 81.8 MCH 24.3 L MCHC 29.7 L RDW 17.6 H Plt Count 114 L MPV 9.6 Absolute Nucleated RBC 0.000 Nucleated RBC % (auto) 0.0 PT INR APTT PTT (Heparin Protocol) 62.1 Anion Gap 13 Estim Creat Clear Calc 43.6 Estimated GFR 44 POC Glucose Random Glucose 243 H Calcium 9.4 03/26/21 03/26/21 03/26/21 11:03 11:13 17:59 MCV MCH MCHC RDW Plt Count MPV Absolute Nucleated RBC Nucleated RBC % (auto) PT 11.4 INR 1.0 APTT 27.1 PTT (Heparin Protocol) Anion Gap Estim Creat Clear Calc Estimated GFR POC Glucose 229 H 202 H Random Glucose Calcium 03/26/21 03/27/21 03/27/21 20:42 06:40 06:40 MCV 79.7 L MCH 23.9 L MCHC 30.0 L RDW 17.2 H Plt Count 134 L MPV 10.6 Absolute Nucleated RBC 0.000 Nucleated RBC % (auto) 0.0 PT INR APTT PTT (Heparin Protocol) Anion Gap 14 Estim Creat Clear Calc 62.1 Estimated GFR > 60 POC Glucose 253 H Random Glucose 174 H Calcium 8.9 03/27/21 07:09 MCV MCH MCHC RDW Plt Count MPV Absolute Nucleated RBC Nucleated RBC % (auto) PT INR APTT PTT (Heparin Protocol) Anion Gap Estim Creat Clear Calc Estimated GFR POC Glucose 170 H Random Glucose Calcium Microbiology Microbiology Results: Microbiology 03/25/21 11:43 Blood Culture - Preliminary Blood - Venous No growth after 24 hours. 03/25/21 10:49 Blood Culture - Preliminary Blood - Venous No growth after 24 hours. Assessment and Plan (1) Deep vein thrombosis of lower extremity: Status: Acute (2) VIRI (acute kidney injury): Status: Acute Assessment and Plan: 80-year-old female with past medical history of COPD, diabetes , hypertension, metastatic lung cancer/ small cell lung cancer ,recent uti-came to hospital ? With extensive left leg DVT. ?1.? Extensive left leg DVT ?no pulm embolism-stop heparin , started lovenox. 2. viri:stop hydration 3. recent uti: added ceftin ?? 4. dm with hypoglycemia:170-200's: fs with adjusted sliding scale coverage. 5. hypertension:? hold irbesartan due to viri , blood pressure softer side , hold morphine 6. COPD:? Continue p.r.n.? nebs. 7. ? metastatic small cell lung cancer:? Management as per Oncology outpatient. ? Chest x-ray finding probably related to above. Pt eval -generlaised weak ? DVT prophylaxis:? SubQ heparin Quality Stroke Does the patient have a stroke diagnosis?: No VTE Prior VTE?: No VTE Risk Level:: Medical - moderate - high VTE Device Contraindication: N/A - Device Ordered VTE Drug Contraindication: N/A - Med Ordered
[2021-03-27 09:19] LABS: INTERNATIONAL NORM RATIO 1.1 (0.9-1.1); Prothrombin Time 12.2 SEC (9.9-13.0)
--- NOTE | 2021-03-27 09:29 | PC.NURSE ---
patient medicated for pain per order
[2021-03-27] MEDS: Enoxaparin Sodium 100 MG/ML SYRINGE SUBCUT ×2 (10:58→22:10)
[2021-03-27 11:57] LABS: Glucose, Whole Blood 205 mg/dL (60-115)
[2021-03-27] MEDS: Insulin Lispro 100 UNIT/ML 3 ML VIAL SUBCUT (13:29)
--- NOTE | 2021-03-27 14:08 | PC.NURSE ---
patient a&ox3, [facility] at bedside, patients BP was soft- pt asymptomatic of bp, Dr. Hernandez notified, pt has been oob to recliner and goes to commode with 1 person assist. patient c/o increased pain when she goes from recliner to commode, pt will be medicated for pain per her request once she returns to recliner. will continue to monitor.
[2021-03-27] MEDS: 0.9 % Sodium Chloride Flush 3 ML SYRINGE IVFLUSH (14:54)
[2021-03-27] MEDS: oxyCODONE HCl Immed Release 5 MG TABLET PO ×2 (16:06→22:10)
[2021-03-27 16:18] LABS: Glucose, Whole Blood 178 mg/dL (60-115)
--- NOTE | 2021-03-27 20:44 | PC.NURSE ---
Assisted pt ooc to use comode. Pt cleaned and barrier cream applied. Poc and vitals updated and RN notified. Assisted pt back in to bed and warm blankets provided. Rn aware.
[2021-03-27 20:45] LABS: Glucose, Whole Blood 206 mg/dL (60-115)
[2021-03-27] MEDS: Pravastatin Sodium 40 MG TABLET PO (21:11)
[2021-03-27] MEDS: Sennosides 8.6 MG TABLET PO (21:11)
[2021-03-27] MEDS: Docusate Sodium 100 MG CAPSULE PO (21:11)
[2021-03-27] MEDS: Montelukast Sodium 10 MG TABLET PO (21:11)
[2021-03-28 06:02] VITALS: BP 138/70; PULSE 83; RESP 16; TEMP 36.6; O2SAT 95
[2021-03-28] MEDS: Albuterol/Iprat 2.5/0.5MG 3 ML AMPUL.NEB INHALE (07:57)
[2021-03-28 08:03] VITALS: PULSE 85; RESP 18; O2SAT 96
[2021-03-28] MEDS: Omeprazole 20 MG CAPSULE.DR PO (08:06)
[2021-03-28] MEDS: Acetaminophen 325 MG TABLET 650 MG PO ×3 (08:06→17:42)
[2021-03-28] MEDS: Escitalopram Oxalate 20 MG TABLET PO (08:06)
--- NOTE | 2021-03-28 08:23 | PC.NURSE ---
Pt A&Ox3, OOB to BR and then to chair, pt states she feels so much better today since she was able to go to the actual bathroom. Pt has 5/10 pain to LLE at this time. Medicated as per MAR orders. Lungs with crackles in the bases, LLE pink and swollen, +2 pittine edema. Marked for doppler pulses. Pt is NSR on monitor at this time, O2 sat as charted on 3L NC at this time, pt states she is normally on 2L NC at home. Awaiting bed assignment. Will continue to monitor.
[2021-03-28 08:39] LABS: Hematocrit 29.9 % (37.0-47.0)
[2021-03-28 08:40] LABS: Glucose, Whole Blood 182 mg/dL (60-115)
[2021-03-28 10:52] VITALS: PULSE 85
[2021-03-28 12:00] VITALS: BP 119/56; PULSE 71; RESP 18; TEMP 36.9; O2SAT 98
[2021-03-28 12:00] LABS: Glucose, Whole Blood 193 mg/dL (60-115)
[2021-03-28] MEDS: Enoxaparin Sodium 100 MG/ML SYRINGE SUBCUT (12:16)
--- NOTE | 2021-03-28 12:33 | HO.PM.IMPN ---
Subjective Subjective Date of Service: 03/28/21 Interval History: dvt Review of Systems still has leg pain but improving, leg colour seems improving Physical Exam Vital Signs: Vital Signs: Last Vital Signs Temp 98.5 F 03/28/21 12:00 Pulse 71 03/28/21 12:00 Resp 18 03/28/21 12:00 BP 119/56 L 03/28/21 12:00 Pulse Ox 98 03/28/21 12:00 Oxygen Flow Rate 2 03/25/21 09:03 BMI result Body Mass Index 38.9 Appearance: Alert.? Oriented X3.? not in distress.? Eyes: Pupils equal, round and reactive to light.? Sclera nonicteric.? ENT: Pharynx normal.? Moist mucous membranes. cvs: rrr, [id number] , no murmur res: clear to auscultation ,no rhonchii or wheezing abd: no rebound or guarding ,nt, bs present. ext pulses present please see left leg picture -seems improving neuro: axo3 , nonfocal. Objective Data Active Medications Acetaminophen (Acetaminophen 325 Mg Tablet) 650 mg PO Q6H [facility] Last Admin: 03/28/21 12:20 Dose: 650 mg Documented by: GILBERT Albuterol/Ipratropium (Albuterol/Iprat 2.5/0.5mg 3 Ml Ampul.Neb) 3 ml INHALE RBID [facility] Last Admin: 03/28/21 07:57 Dose: 3 ml Documented by: SONAM Cefuroxime Axetil (Cefuroxime Axetil 250 Mg Tablet) 250 mg PO BID [facility] Last Admin: 03/28/21 08:06 Dose: 250 mg Documented by: JORGE Dextrose (Dextrose 50 % 25 Gm/50 Ml Vial) 25 gm IVPUSH Q15M PRN; Protocol PRN Reason: per Hypoglycemia Standing Ord. Docusate Sodium (Docusate Sodium 100 Mg Capsule) 100 mg PO BEDTIME [facility] Last Admin: 03/27/21 21:11 Dose: 100 mg Documented by: SHIRLEY Enoxaparin Sodium (Enoxaparin Sodium 100 Mg/Ml Syringe) 100 mg SUBCUT Q12H [facility] Last Admin: 03/28/21 12:16 Dose: 100 mg Documented by: GILBERT Escitalopram Oxalate (Escitalopram Oxalate 20 Mg Tablet) 20 mg PO DAILY [facility] Last Admin: 03/28/21 08:06 Dose: 20 mg Documented by: JORGE Glucose (Glucose Gel 15 Gm Gel..Gram.) 15 gm PO Q15M PRN; Protocol PRN Reason: per Hypoglycemia Standing Ord. Insulin Human Lispro (Insulin Lispro 100 Unit/Ml 3 Ml Vial) 0 unit SUBCUT QIDACHS [facility]; Protocol Last Admin: 03/28/21 12:25 Dose: Not Given Documented by: RADHA Non-Admin Reason: No Insulin Coverage Montelukast Sodium (Montelukast Sodium 10 Mg Tablet) 10 mg PO BEDTIME [facility] Last Admin: 03/27/21 21:11 Dose: 10 mg Documented by: SHIRLEY Omeprazole (Omeprazole 20 Mg Capsule.Dr) 20 mg PO DAILY@0630 [facility] Last Admin: 03/28/21 08:06 Dose: 20 mg Documented by: JORGE Ondansetron HCl (Ondansetron Odt 8 Mg Tab.Rapdis) 8 mg TRANSLINGU Q8H PRN PRN Reason: nausea Last Admin: 03/26/21 16:15 Dose: 8 mg Documented by: ETIENNE Oxybutynin Chloride (Oxybutynin Chloride Er 5 Mg Tab.Er.24) 10 mg PO DAILY [facility] Last Admin: 03/28/21 08:06 Dose: 10 mg Documented by: JORGE Oxycodone HCl (Oxycodone Hcl Immed Release 5 Mg Tablet) 5 mg PO Q6H PRN PRN Reason: Pain, Mild (Pain Scale 1-3) Last Admin: 03/27/21 22:10 Dose: 5 mg Documented by: SHIRLEY Pharmacy Consult (Consult Rx Perform Med Rec) 1 each MISCELLANE ONCE PRN PRN Reason: Consult order Pravastatin Sodium (Pravastatin Sodium 40 Mg Tablet) 40 mg PO BEDTIME [facility] Last Admin: 03/27/21 21:11 Dose: 40 mg Documented by: SHIRLEY Senna (Sennosides 8.6 Mg Tablet) 8.6 mg PO BEDTIME [facility] Last Admin: 03/27/21 21:11 Dose: 8.6 mg Documented by: SHIRLEY Sodium Chloride (0.9 % Sodium Chloride Flush 3 Ml Syringe) 3 ml IVFLUSH QSHIFT [facility] Last Admin: 03/28/21 10:35 Dose: Not Given Documented by: JORGE Non-Admin Reason: IV Running Labs CBC & Chem 7: 03/28/21 06:25 03/27/21 06:40 Labs: Laboratory Results - last 24 hr 03/27/21 03/27/21 03/28/21 16:08 20:41 08:36 POC Glucose 178 H 206 H 182 H 03/28/21 11:57 POC Glucose 193 H Microbiology Microbiology Results: Microbiology 03/25/21 11:43 Blood Culture - Preliminary Blood - Venous No growth after 48 hours. 03/25/21 10:49 Blood Culture - Preliminary Blood - Venous No growth after 48 hours. Assessment and Plan Assessment and Plan: 80-year-old female with past medical history of COPD, diabetes , hypertension, metastatic lung cancer/ small cell lung cancer ,recent uti-came to hospital ? With extensive left leg DVT. ?1.? Extensive left leg DVT ?no pulm embolism-stop heparin , started lovenox. 2. warren: resolved off hydration 3. recent uti: added ceftin ?? 4. dm with hypoglycemia:170-190's: fs with adjusted sliding scale coverage. 5. hypertension:? hold irbesartan due to warren , blood pressure softer side , hold morphine 6. COPD:? Continue p.r.n.? nebs. 7. ? metastatic small cell lung cancer:? Management as per Oncology outpatient. ? Chest x-ray finding probably related to above. Pt eval -generlaised weak ? DVT prophylaxis:? SubQ heparin Quality Stroke Does the patient have a stroke diagnosis?: No VTE Prior VTE?: No VTE Risk Level:: Medical - moderate - high VTE Device Contraindication: N/A - Device Ordered VTE Drug Contraindication: N/A - Med Ordered
--- NOTE | 2021-03-28 12:37 | P.DS_ITS ---
DS: Providers Provider Date of Service: 03/28/21 Date of admission: 03/25/21 14:47 Primary care physician: Jerald Nugent MD Consults: 03/25/21 15:25 Consult to Vascular Surgery Routine Consulting Provider: Alfredo Acuña Reason for consultation: extensive left leg dvt Has provider been notified: No DS: Diagnosis Discharge Diagnosis (1) VIRI (acute kidney injury): Status: Acute (2) Deep vein thrombosis of lower extremity: Status: Acute DS: Summary Hospital Course Hospital Course: 80-year-old female with past medical history of COPD, diabetes, hypertension, metastatic lung cancer/ small cell lung cancer ? recently On chemo- recently treated for hypoglycemia and UTI,? came to the hospital that over the late evening she started having ? pain, swelling,? discoloration-? decided to come to the hospital because of that. ?she does not have any history of DVT or PE. ? Denies any new complaint of chest pain or shortness of breath or abdominal pain or fever or chills or nausea or vomiting Denies any cough Denies any weakness or numbness. hospital course: Patient came to the hospital because of extensive DVt of left leg- with pain, swelling and color change: patient was initially started on IV heparin and subsequently switched to subQ Lovenox. her leg swelling and pain seems to be improving also the color is also improving toward pinkish . seen by vascular- recommended no thrombolytic intervention due to underlying cancer history. Recommended to continue Lovenox. Added compression stocking. patient is to continue Lovenox - needs to follow-up with Dr. Mendoza out patiently for further workup if needed and duration of lovenox therapy. Also patient is to follow-up with Dr. Mendoza for her cancer management. anemia Normocytic: patient denies any GI bleed or melena history: H&H between 9-10 since last year( which is available system data )- monitor CBC closely. patient has recent hx of dm with hypoglycemia - probably related to decreased p.o. intake as well as insulin and? glipizide- kindly? monitor fingersticks before meals- if fingersticks are consistently above 200? start Lantus at small dose 5 units? bedtime and then slowly add glipizide as needed for up titrate Lantus outpatient as per PCP. Patient refused to go to rehab which recommended by PT she wanted to go home with her VNA- please monitor CBC and home PT. Lovenox injection teaching given by the nurse staff further follow-up with [facility]NA. Cta : finding d/w patient probable related to her lung cancer - Please follow- up with Oncology office Dr. Morales in 1 week, Oncology will arrange the appointment fot dvt and Further management of lung cancer. Above was discussed with patient in detail length she understand and in agreement with above plan. Above management discussed with the patient in detail length she understand and in agreement with the above plan, time spent 50 minutes and 50% time spent on counseling. Significant findings: As above. Procedures performed: None. Treatment and response: As above. Complications: None.. Time Spent with Patient Time attestation: Total time spent providing and/or coordinating discharge services: Discharge coordination time: Greater than 30 minutes Quality: Stroke Does the patient have a stroke diagnosis?: No Physical Exam Vital Signs: Vital Signs: Last Vital Signs Temp 98.5 F 03/28/21 12:00 Pulse 71 03/28/21 12:00 Resp 18 03/28/21 12:00 BP 119/56 L 03/28/21 12:00 Pulse Ox 98 03/28/21 12:00 Oxygen Flow Rate 2 03/25/21 09:03 BMI result Body Mass Index 38.9 Appearance: Alert.? Oriented X3.? not in distress.? Eyes: Pupils equal, round and reactive to light.? Sclera nonicteric.? ENT: Pharynx normal.? Moist mucous membranes. cvs: rrr, [id number] , no murmur res: clear to auscultation ,no rhonchii or wheezing abd: no rebound or guarding ,nt, bs present. ext pulses present swelling pain and color improved significantly neuro: axo3 , nonfocal. DS: Data Data Completed and Pending Labs on day of discharge: Laboratory Results - last 24 hr 03/27/21 03/27/21 03/28/21 16:08 20:41 06:25 Hgb 9.0 L Hct 29.9 L POC Glucose 178 H 206 H 03/28/21 03/28/21 08:36 11:57 Hgb Hct POC Glucose 182 H 193 H Preliminary micro results at discharge 03/25/21 11:43 Blood Culture - Preliminary Blood - Venous No growth after 48 hours. 03/25/21 10:49 Blood Culture - Preliminary Blood - Venous No growth after 48 hours. Additional Comments Additional comments: CT/CT angio chest PE protocol IMPRESSION: No acute intracranial process seen. There is left frontal parasagittal calcified mass likely meningioma. ? No evidence of PE or aortic dissection. ? Diffuse emphysema, multiple small bony nodules and chronic changes are stable to previous CT chest exam. ? There is right paratracheal and right hilar abnormal lymph nodes, stable. ? 2 hypodense lesion in the right lobe are suspicious for malignancy. There is mild hepatomegaly. ? Colonic diverticulosis without diverticulitis. US/US arterial duplex LE LT IMPRESSION: Atherosclerotic plaque and mild atherosclerotic disease. No thrombus or hemodynamically significant stenosis seen. Discharge Plan Discharge Patient Disposition: Home Health Service Discharge Diagnosis: dvt left leg Referrals: Samantha HARRIS [Outside] - 1 Week Alfredo Acuña MD [Physician] - 1 Week (fu outpatient) Jerald Nugent MD [Primary Care Provider] - 1 Week Discharge Medications: New enoxaparin 100 mg/mL Syringe 100 mg subcut Q12H Qty: 60 RF: 0 (DME) eli.stocking,knee,reg,xlrg Misc See Rx Instructions .Route Qty: 12 RF: 0 Continued ipratropium-albuterol 0.5 mg-3 mg(2.5 mg base)/3 mL solution for nebulization 3 ml inhalation BID RF: 0 pravastatin 40 mg tablet 1 tab PO DAILY RF: 0 citalopram 20 mg tablet 2 tab PO DAILY RF: 0 pantoprazole 40 mg tablet,delayed release (DR/EC) 1 tab PO DAILY RF: 0 irbesartan 75 mg tablet 1 tab PO DAILY RF: 0 montelukast 10 mg tablet 1 tab PO QPM RF: 0 oxybutynin chloride 5 mg tablet 1 tab PO TID PRN (Reason: URINARY SYMPTOMS) RF: 0 metformin 500 mg tablet extended release 24 hr 2 tab PO BID RF: 0 glipizide 5 mg tablet 2 tab PO BID RF: 0 Hold Instructions: Resume on 03/28/21. Spiriva Respimat 2.5 mcg/actuation mist 2 puff PO DAILY RF: 0 ondansetron 8 mg Tablet,Disintegrating 8 mg PO Q8H PRN (Reason: nausea) Qty: 60 RF: 3 oxycodone 5 mg Tablet 5 mg PO Q4H PRN (Reason: Pain) Qty: 60 RF: 0 cefuroxime axetil 250 mg tablet 250 mg PO Q12H Qty: 10 RF: 0 Held Lantus Solostar U-100 Insulin 100 unit/mL (3 mL) insulin pen 30 unit subcut BEDTIME RF: 0 Hold Instructions: Resume on 03/28/21. Discharge Orders: Discharge Order (Routine); Ordered 03/28/21 Ordered By: Alice Hernandez Diet: advance to usual diet, diabetic diet, low fat, low cholesterol and low salt diet Activity on Discharge: As tolerated Stand Alone Forms: Patient Portal Discharge page Care Plan Goals: Patient came to the hospital because of extensive DVt of left leg- with pain, swelling and color change: patient was initially started on IV heparin and subsequently switched to subQ Lovenox. her leg swelling and pain seems to be improving also the color is also impr oving toward pinkish . seen by vascular- recommended no thrombolytic intervention due to underlying cancer history. Recommended to continue Lovenox. patient is to continue Lovenox - needs to follow-up with oncology out patiently for further workup if needed and duration of lovenox therapy. Also patient is to follow-up with Dr. Mendoza for her cancer management. anemia Normocytic: patient denies any GI bleed or melena history: H&H between 9-10 since last year( which is available system data )- monitor CBC closely. patient has recent hx of dm with hypoglycemia - probably related to decreased p.o. intake as well as insulin and? glipizide- kindly? monitor fingersticks before meals- if fingersticks are consistently above 200? start Lantus at small dose 5 units? bedtime and then slowly add glipizide as needed for up titrate Lantus outpatient as per PCP. Patient refused to go to rehab which recommended by PT she wanted to go home with her VNA- please monitor CBC and home PT. Cta : finding d/w patient probable related to her lung cancer - Please follow- up with Oncology office Dr. Morales in 1 week, Oncology will arrange the appointment fot dvt and Further management of lung cancer. Above was discussed with patient in detail length she understand and in agreement with above plan. Health Concerns: as above. Plan of Treatment: as above. Assessment: as above.
[2021-03-28 13:14] VITALS: BMI 38.9
--- NOTE | 2021-03-28 13:23 | MHC.CLN ---
RE: CONSULT PT WITH INCREASED NUTRITION RISK R/T PRESSURE INJURIES DIET RX: 1800DM -PT MAY BENEFIT FROM 2200DM DIET R/T INCREASED NEEDS RECOMMEND ADDING GLUCERNA BID TO PROMOTE WOUND HEALING SUPP PROVIDES 474KCALS, 20G PROTEIN MONITOR PO INTAKE CLOSELY
--- NOTE | 2021-03-28 13:37 | P.CONGS_ITS ---
History of Present Illness Consult details Consult date: 03/28/21 Reason for consult: other (dvt) Narrative: Very pleasant 80-year-old female who was recently treated for a UTI and subsequently discharged, returned to the hospital with an acute finding of a left lower extremity DVT. It was acute onset in she recognized that her leg became significantly swollen. Of note she does have a history of small-cell lung cancer. She was subsequently admitted and treated with anticoagulation. She most recent was transferred to the floor and notes that she is doing si gnificantly better. Review of Systems Constitutional: Constitutional: Reports as per HPI ENT: Reports system reviewed and no additional complaints, except as document ed Cardiovascular: Cardiovascular: Denies chest pain, Denies chest pain at rest and Denies chest pain with activity Respiratory: Respiratory: Denies chest congestion and Denies cough Gastrointestinal: Gastrointestinal: Reports no additional gastrointestinal complaints Musculoskeletal: Musculoskeletal: Denies abnormal gait Integumentary/Breasts: Skin/Breast: Reports pruritus and Denies wounds Neurologic: Reports system reviewed and no additional complaints, except as documented and Denies abnormal gait Psychiatric: Psychiatric: Denies no additional psychiatric complaints [facility] Past Medical History Medical History COPD (chronic obstructive pulmonary disease) Diabetes mellitus, type 2 Hypertension Family History Family History Mother Breast cancer Diabetes HTN (hypertension) Father Lung cancer Surgical History Surgical History History of section Social History Social History Household Members: Other Housing: House Do you presently have visiting nurse or other home services: Yes Alcohol intake: never Patient Tobacco Use Status: Former Tobacco user Tobacco use type: Cigarette service: No Current occupational status: retired Meds Allergies Allergy/AdvReac Type Severity Reaction Status Date / Time No Known Drug Allergies Allergy Unknown Verified 03/11/21 07:49 Active Medications: Current Medications Acetaminophen (Acetaminophen 325 Mg Tablet) 650 mg PO Q6H [place] Last Admin: 03/28/21 12:20 Dose: 650 mg Documented by: Albuterol/Ipratropium (Albuterol/Iprat 2.5/0.5mg 3 Ml Ampul.Neb) 3 ml INHALE RBID [facility] Last Admin: 03/28/21 07:57 Dose: 3 ml Documented by: Cefuroxime Axetil (Cefuroxime Axetil 250 Mg Tablet) 250 mg PO BID [facility] Last Admin: 03/28/21 08:06 Dose: 250 mg Documented by: Dextrose (Dextrose 50 % 25 Gm/50 Ml Vial) 25 gm IVPUSH Q15M PRN; Protocol PRN Reason: per Hypoglycemia Standing Ord. Docusate Sodium (Docusate Sodium 100 Mg Capsule) 100 mg PO BEDTIME [facility] Last Admin: 03/27/21 21:11 Dose: 100 mg Documented by: Enoxaparin Sodium (Enoxaparin Sodium 100 Mg/Ml Syringe) 100 mg SUBCUT Q12H [facility] Last Admin: 03/28/21 12:16 Dose: 100 mg Documented by: Escitalopram Oxalate (Escitalopram Oxalate 20 Mg Tablet) 20 mg PO DAILY [facility] Last Admin: 03/28/21 08:06 Dose: 20 mg Documented by: Glucose (Glucose Gel 15 Gm Gel..Gram.) 15 gm PO Q15M PRN; Protocol PRN Reason: per Hypoglycemia Standing Ord. Insulin Human Lispro (Insulin Lispro 100 Unit/Ml 3 Ml Vial) 0 unit SUBCUT QIDACHS [facility]; Protocol Last Admin: 03/28/21 12:25 Dose: Not Given Documented by: Montelukast Sodium (Montelukast Sodium 10 Mg Tablet) 10 mg PO BEDTIME [facility] Last Admin: 03/27/21 21:11 Dose: 10 mg Documented by: Omeprazole (Omeprazole 20 Mg Capsule.Dr) 20 mg PO DAILY@0630 [facility] Last Admin: 03/28/21 08:06 Dose: 20 mg Documented by: Ondansetron HCl (Ondansetron Odt 8 Mg Tab.Rapdis) 8 mg TRANSLINGU Q8H PRN PRN Reason: nausea Last Admin: 03/26/21 16:15 Dose: 8 mg Documented by: Oxybutynin Chloride (Oxybutynin Chloride Er 5 Mg Tab.Er.24) 10 mg PO DAILY [facility] Last Admin: 03/28/21 08:06 Dose: 10 mg Documented by: Oxycodone HCl (Oxycodone Hcl Immed Release 5 Mg Tablet) 5 mg PO Q6H PRN PRN Reason: Pain, Mild (Pain Scale 1-3) Last Admin: 03/27/21 22:10 Dose: 5 mg Documented by: Pharmacy Consult (Consult Rx Perform Med Rec) 1 each MISCELLANE ONCE PRN PRN Reason: Consult order Pravastatin Sodium (Pravastatin Sodium 40 Mg Tablet) 40 mg PO BEDTIME [facility] Last Admin: 03/27/21 21:11 Dose: 40 mg Documented by: Senna (Sennosides 8.6 Mg Tablet) 8.6 mg PO BEDTIME [facility] Last Admin: 03/27/21 21:11 Dose: 8.6 mg Documented by: Sodium Chloride (0.9 % Sodium Chloride Flush 3 Ml Syringe) 3 ml IVFLUSH QSHIFT [facility] Last Admin: 03/28/21 10:35 Dose: Not Given Documented by: Home Medications Medication Instructions Recorded Confirmed Last Taken Type citalopram 20 mg tablet 2 tab PO DAILY 02/28/21 03/25/21 03/24/21 History glipizide 5 mg tablet 2 tab PO BID 02/28/21 03/25/21 03/24/21 History insulin glargine 100 unit/mL (3 30 unit SUBCUT BEDTIME 02/28/21 03/25/21 03/24/21 History mL) subcutaneous pen (Lantus Solostar U-100 Insulin) ipratropium 0.5 mg-albuterol 3 mg 3 ml INHALATION BID 02/28/21 03/25/21 03/24/21 History (2.5 mg base)/3 mL nebulization soln irbesartan 75 mg tablet 1 tab PO DAILY 02/28/21 03/25/21 03/24/21 History metformin 500 mg tablet,extended 2 tab PO BID 02/28/21 03/25/21 03/24/21 History release 24 hr montelukast 10 mg tablet 1 tab PO QPM 02/28/21 03/25/21 03/24/21 History oxybutynin chloride 5 mg tablet 1 tab PO TID PRN 02/28/21 03/25/21 03/24/21 History pantoprazole 40 mg tablet,delayed 1 tab PO DAILY 02/28/21 03/25/21 03/24/21 History release pravastatin 40 mg tablet 1 tab PO DAILY 02/28/21 03/25/21 03/24/21 History tiotropium bromide 2.5 2 puff PO DAILY 02/28/21 03/25/21 03/24/21 History mcg/actuation mist for inhalation (Spiriva Respimat) Physical Exam Vital Signs: Vital Signs: Last Vital Signs Temp 98.5 F 03/28/21 12:00 Pulse 71 03/28/21 12:00 Resp 18 03/28/21 12:00 BP 119/56 L 03/28/21 12:00 Pulse Ox 98 03/28/21 12:00 Oxygen Flow Rate 2 03/25/21 09:03 BMI result Body Mass Index 38.9 Const: General: cooperative, healthy appearing and comfortable Orientation/consciousness: oriented to person, oriented to place and oriented to time Neck: Carotids: no bruits Chest: Chest palpation & inspection: normal inspection of the chest and normal palpation of entire chest wall Resp: Effort & Inspection: normal respiratory effort and able to speak in complete sentences Cardio: Rate: regular rate Heart sounds: S1 normal heart sound present and S2 normal heart sound present Peripheral pulses: Peripheral pulses 2+ throughout GI: Inspection: Yes normal to inspection Skin: Other: +2 edema, left General skin exam: dry skin Neuro: General: oriented to person, oriented to place and oriented to time Extrem: General: Yes edema Right lower extremity: full ROM, normal capillary refill and edema Left lower extremity: full ROM, normal capillary refill and edema Psych: Mental Status: mental status grossly normal Results Labs Result diagrams: 03/28/21 06:25 03/27/21 06:40 Labs: Abnormal lab results 03/27/21 03/27/21 03/28/21 Range/Units 16:08 20:41 06:25 Hgb 9.0 L (12.0-16.0) g/dl Hct 29.9 L (37.0-47.0) % POC Glucose 178 H 206 H (60-115) mg/dL 03/28/21 03/28/21 Range/Units 08:36 11:57 Hgb (12.0-16.0) g/dl Hct (37.0-47.0) % POC Glucose 182 H 193 H (60-115) mg/dL Short CBC 03/28/21 Range/Units 06:25 Hgb 9.0 L (12.0-16.0) g/dl Hct 29.9 L (37.0-47.0) % Urine 12/17/21 Range/Units 14:24 Urine Color YELLOW Urine Appearance HAZY Urine pH 6.0 (5.0-8.0) Ur Specific [place] 1.010 (1.005-1.025) Urine Protein 1+ H (NEG-TRACE) MG/DL Urine Glucose (UA) NEG (NEG) MG/DL All other labs normal. Assessment and Plan (1) Deep vein thrombosis of lower extremity: Status: Acute In short patient has an acute onset DVT. Unfortunately due to her age and history of small cell lung cancer it would be a contraindication to thrombo lytic therapy. Would recommend continued anticoagulation. In addition we did discussed continued conservative measures including compression elevation and exercise to prevent post phlebitic issues. She reports that she does have compression from her at home. I did request that she make sure they are appropriately fitting. If not she will require new compression stockings which we can provide prescriptions for. We will follow on an as-needed basis. Thank you for allowing us to assist in her care. Procedures Date of Service Date of Service: 03/28/21
--- NOTE | 2021-03-28 14:11 | MHC.CM.PN ---
Per MD, Patient will be medically cleared for dc today. Patient refuses PT's recommendation for STR. Patient will return home today and resume [facility] and [employer] for O2.[facility] has been notified of today' dc. PCP is Dr. Jerald Nugent.
--- NOTE | 2021-03-28 14:50 | MHC.CM.PN ---
Patient will be going home on new BID Lovenox injections. PER spoke with Patient who explains that she gives herself her own Insulin and that she is comfortable learning how to do the Lovenox injection. MD is aware of this and PER asked MD to have RN teach Patient how to do the injection before dc because [facility] will not do a visit on the same day as the dc.
[2021-03-28 15:48] VITALS: BP 122/58; PULSE 72; RESP 15; TEMP 36.6; O2SAT 97
[2021-03-28 17:30] LABS: Glucose, Whole Blood 186 mg/dL (60-115)
== END 2021-03-28 18:29 | disposition home health service (06) | DRG 300 ==
LOC: HO.ED 14:31 → HO.EDOVER 16:18 → HO.IMC 03-28 08:34
PROVIDERS: Internal Medicine; Nurse Practitioner Family; Admitting Provider Internal Medicine; Emergency Provider Emergency Medicine; PCP Internal Medicine; Visit Provider Internal Medicine
DX: I82.492 Acute embolism and thrombosis of other specified deep vein of left lower extremity (principal); N17.9 Acute kidney failure, unspecified; N39.0 Urinary tract infection, site not specified; C34.90 Malignant neoplasm of unspecified part of unspecified bronchus or lung; I10 Essential (primary) hypertension; Z20.822 Contact with and (suspected) exposure to COVID-19; D64.9 Anemia, unspecified; E11.649 Type 2 diabetes mellitus with hypoglycemia without coma; D69.6 Thrombocytopenia, unspecified; J44.9 Chronic obstructive pulmonary disease, unspecified; D63.0 Anemia in neoplastic disease; Z87.891 Personal history of nicotine dependence; Z79.4 Long term (current) use of insulin; Z79.899 Other long term (current) drug therapy
CPT/HCPCS: 36415; 70450; 71275; 74177; 80048; 80076; 81001; 82947; 83605; 83735; 84484; 85014; 85018; 85025; 85027; 85610; 85730; 87040; 87635; 93005; 93926; 93971; 94640; 96365; 96375; 97162; 99285; 99291; J1650; J2270; Q9967

== ENCOUNTER 2021-05-07 15:57 | Inpatient (IN) | payer MEDICARE, SELFPAY ==
--- NOTE | ~2021-05-07 | XR_ITS ---
EXAMINATION: XR CHEST CLINICAL INFORMATION: Shortness of breath COMPARISON: Chest x-ray 05/07/2021 TECHNIQUE: Frontal view of the chest was obtained. FINDINGS: Stable cardiac silhouette. Atherosclerotic disease of the aortic arch. Lungs are adequately aerated. Mild patchy bilateral airspace opacities are again noted, slightly decreased in prominence from yesterday's radiograph. Approximately 1.7 cm subpleural nodular density of the lateral right lung apex is nonspecific but may correlate with an area of pleural thickening/fluid identified on CT imaging from 03/25/2021. No gross pleural effusion. No pneumothorax. XR/XR chest 1V IMPRESSION: Persistent but improving patchy bilateral airspace disease.
--- NOTE | ~2021-05-07 | XR_ITS ---
EXAMINATION: XR CHEST CLINICAL INFORMATION: Pneumonia. Lung cancer. COMPARISON: Chest x-ray 03/23/2021 TECHNIQUE: Frontal portable view of the chest was obtained. 6:19 PM FINDINGS: Emphysematous hyperlucency of lung. Right apical lung mass again noted. Multifocal patchy airspace opacities bilateral. Airspace opacities suggestive of bilateral patchy pneumonia however are nonspecific. No large pleural effusion. No pneumothorax. No significant central pulmonary vascular congestion. Cardiac and mediastinal contours are unchanged. There are vascular calcifications of aorta. XR/XR chest 1V IMPRESSION: Multifocal bilateral airspace opacities suspected for pneumonia. Clinically correlate.
[2021-05-07 16:07] VITALS: BP 147/56; BP 154/82; PULSE 80; PULSE 82; RESP 22; TEMP 37.4; O2SAT 97; O2SAT 98; BMI 40.4
--- NOTE | 2021-05-07 16:32 | ED_ITS ---
HPI - Weakness General Chief complaint: Weakness Stated complaint: Weakness Flu like Symproms Time Seen by Provider: 05/07/21 16:32 Source: patient Mode of arrival: EMS Limitations: no limitations History of Present Illness HPI Narrative: Patient 80 years old history of small cell carcinoma stage IV with history of COPD hypertension diabetes received last chemotherapy on 05/04 since then been feeling weak with poor appetite having diarrhea and also having chronic cough feel tired with body aches no fever no chills patient is on home oxygen saturating 96% on 2 L Related Data Home Medications Medication Instructions Recorded Confirmed citalopram 20 mg tablet 40 mg PO DAILY 02/28/21 05/07/21 glipizide 5 mg tablet 10 mg PO BID 02/28/21 05/07/21 insulin glargine 100 unit/mL (3 20 unit SUBCUT BEDTIME 02/28/21 05/07/21 mL) subcutaneous pen (Lantus Solostar U-100 Insulin) irbesartan 75 mg tablet 75 mg PO DAILY 02/28/21 05/07/21 metformin 500 mg tablet,extended 1,000 mg PO BID 02/28/21 05/07/21 release 24 hr montelukast 10 mg tablet 1 tab PO BEDTIME 02/28/21 05/07/21 oxybutynin chloride 5 mg tablet 1 tab PO TID PRN 02/28/21 05/07/21 pantoprazole 40 mg tablet,delayed 40 mg PO DAILY 02/28/21 05/07/21 release pravastatin 40 mg tablet 40 mg PO DAILY 02/28/21 05/07/21 ammonium lactate 12 % topical 1 applic TOPICAL BID 05/07/21 05/07/21 cream enoxaparin 100 mg/mL subcutaneous 100 mg SUBCUT Q12H 05/07/21 05/07/21 syringe morphine 30 mg tablet,extended 30 mg PO Q12H 05/07/21 05/07/21 release (MS Contin) Previous Rx's Medication Instructions Recorded ondansetron 8 mg disintegrating 8 mg PO Q8H PRN #60 tab 03/15/21 tablet eli.stocking,knee,reg,xlrg #12 ea 03/28/21 oxycodone 5 mg tablet 5 mg PO Q4H PRN #60 tab 05/03/21 Allergies Allergy/AdvReac Type Severity Reaction Status Date / Time No Known Drug Allergies Allergy Unknown Verified 03/28/21 16:03 Review of Systems Verdana 4l Review of Systems: Yes all other systems are reviewed and Verdana 4d are negative FOR[facility]LY [facility] Past Medical History Medical History COPD (chronic obstructive pulmonary disease) Diabetes mellitus, type 2 Hypertension Surgical History History of section Family History Family History Mother Breast cancer Diabetes HTN (hypertension) Father Lung cancer Social History Social History Household Members: Family Housing: House Do you presently have visiting nurse or other home services: No Alcohol intake: never Patient Tobacco Use Status: Former Tobacco user Tobacco use type: Cigarette Advance Directives: Yes Advance Directives on File: Yes Advance Directives Date on File: 03/28/21 service: No Current occupational status: retired Physical Exam Verdana 4l Vital Signs: Verdana 4d Verdana 4d Vital Signs: Verdana 4d Verdana 4Bd Last Vital Signs Verdana 4d Parole Board Member New 4d Parole Board Member New 4d Temp 99.2 F 05/07/21 21:55 Parole Board Member New 4d Pulse 80 05/07/21 21:55 Parole Board Member New 4d Resp 22 H 05/07/21 21:55 BP 149/51 H 05/07/21 21:55 Pulse Ox 96 05/07/21 21:55 Oxygen Flow Rate 3 05/07/21 16:07 BMI result Body Mass Index 40.4 Appearance: Alert. Oriented X3. Frequent cough Eyes: No pallor icterus ENT: Pharynx normal. Oral Mucosa moist Neck: Normal inspection. Neck supple. CVS: Normal heart rate and rhythm. Pulses normal. Respiratory: Frequent cough with mucoid fact duration bilateral crackles and w heezing Equal air entry bilateral, Abdomen: Soft and nontender. Bowel sounds are present, no mass palpable, no CVA tenderness Skin: Skin warm and dry. Normal skin color. Normal skin turgor. Extremities: No lower extremity edema. No calf tenderness Neuro: Oriented X 3. MDM - Weakness MDM Narrative Medical decision making narrative: Patient with small-cell lung carcinoma with increased cough chest x-ray showed bilateral multifocal pneumonia COVID-19 negative increased WBC count to 19,000 with left shift with 24% bandemia likely bacterial infection will start patient on Zosyn admit for bilateral pneumonia Lab Data Attestation: I reviewed the patient's lab results. Result diagrams: 05/07/21 17:24 05/07/21 17:24 Labs: Lab Results 05/07/21 05/07/21 05/07/21 Range/Units 17:24 17:24 17:24 WBC 19.6 H (4.8-10.8) X10*3/uL RBC 3.26 L (4.20-5.50) X10*6/uL Hgb 8.1 L (12.0-16.0) g/dl Hct 26.7 L (37.0-47.0) % MCV 81.9 (80.0-98.0) fL MCH 24.8 L (27.0-33.0) pg MCHC 30.3 L (31.0-35.0) g/dl RDW 21.7 H (11.0-16.0) % Plt Count 235 D (160-400) X10*3/uL MPV 9.0 L (9.4-12.3) fL Immature Gran % (Auto) 23.4 H (0.0-0.4) % Neut % (Auto) 69.8 (45-73) % Lymph % (Auto) 5.9 L (20-40) % [place] % (Auto) 0.2 L (2-11) % Eos % (Auto) 0.1 (0-4) % Baso % (Auto) 0.6 (0-2) % Lymph # (Auto) 1.2 (1.2-4.9) X10*3/uL [place] # (Auto) 0.0 L (0.1-1.2) X10*3/uL Eos # (Auto) 0.0 (0.0-0.4) X10*3/uL Baso # (Auto) 0.1 (0.0-0.2) X10*3/uL Abs Immat Gran (auto) 4.59 H (0.00-0.03) X10*3/uL Absolute Neuts (auto) 13.7 H (2.0-8.3) x10*3/uL Absolute Nucleated RBC 0.000 (0.0-0.012) X10*3/uL Nucleated RBC % (auto) 0.0 (0.0-0.2) /100WBC Neutrophils % (Manual) 87 H (45-73) % Band Neutrophils % 5 (3-5) % Lymphocytes % (Manual) 7 L (20-40) % Atypical Lymphs % (Man) 1 (0-6) % Abs Neuts (Manual) 18.0 H (2.0-8.3) X10*3/uL Lymphocytes # (Manual) 1.4 (1.2-4.9) X10*3/uL Atyp Lymphs # (Manual) 0.2 x10*3/uL Hypersegmented Neuts PRESENT Toxic Vacuolation PRESENT Dohle Bodies PRESENT Platelet Estimate NORMAL (NORMAL) Plt Morphology Comment NORMAL RBC Morphology NOTED Microcytosis 1+ (5-14) /OIF Ovalocytes 1+ (5-14) /OIF Schistocytes 1+ (0-2) /OIF Sodium 134 L (135-145) mmol/L Potassium 4.3 (3.3-5.1) mmol/L Chloride 99 (96-108) mmol/L Carbon Dioxide 24 (22-29) mmol/L Anion Gap 15 (12-20) BUN 13 (9-16) mg/dL Creatinine 0.71 (0.5-1.4) mg/dL Estim Creat Clear Calc 71.5 Estimated GFR > 60 Random Glucose 197 H (60-115) mg/dL Lactic Acid 1.3 (0.5-2.0) mmol/L Calcium 8.9 (8.4-10.2) mg/dL Total Bilirubin 0.3 (0.0-1.0) mg/dL AST 16 (5-31) U/L ALT 16 (0-31) U/L Alkaline Phosphatase 65 (39-117) U/L Total Protein 6.1 L (6.5-8.0) g/dL Albumin 3.2 L (3.5-5.0) g/dL COVID-19 (THEA) (Negative) COVID-19 Clin Com 05/07/21 Range/Units 17:24 WBC (4.8-10.8) X10*3/uL RBC (4.20-5.50) X10*6/uL Hgb (12.0-16.0) g/dl Hct (37.0-47.0) % MCV (80.0-98.0) fL MCH (27.0-33.0) pg MCHC (31.0-35.0) g/dl RDW (11.0-16.0) % Plt Count (160-400) X10*3/uL MPV (9.4-12.3) fL Immature Gran % (Auto) (0.0-0.4) % Neut % (Auto) (45-73) % Lymph % (Auto) (20-40) % [place] % (Auto) (2-11) % Eos % (Auto) (0-4) % Baso % (Auto) (0-2) % Lymph # (Auto) (1.2-4.9) X10*3/uL [place] # (Auto) (0.1-1.2) X10*3/uL Eos # (Auto) (0.0-0.4) X10*3/uL Baso # (Auto) (0.0-0.2) X10*3/uL Abs Immat Gran (auto) (0.00-0.03) X10*3/uL Absolute Neuts (auto) (2.0-8.3) x10*3/uL Absolute Nucleated RBC (0.0-0.012) X10*3/uL Nucleated RBC % (auto) (0.0-0.2) /100WBC Neutrophils % (Manual) (45-73) % Band Neutrophils % (3-5) % Lymphocytes % (Manual) (20-40) % Atypical Lymphs % (Man) (0-6) % Abs Neuts (Manual) (2.0-8.3) X10*3/uL Lymphocytes # (Manual) (1.2-4.9) X10*3/uL Atyp Lymphs # (Manual) x10*3/uL Hypersegmented Neuts Toxic Vacuolation Dohle Bodies Platelet Estimate (NORMAL) Plt Morphology Comment RBC Morphology Microcytosis /OIF Ovalocytes /OIF Schistocytes /OIF Sodium (135-145) mmol/L Potassium (3.3-5.1) mmol/L Chloride (96-108) mmol/L Carbon Dioxide (22-29) mmol/L Anion Gap (12-20) BUN (9-16) mg/dL Creatinine (0.5-1.4) mg/dL Estim Creat Clear Calc Estimated GFR Random Glucose (60-115) mg/dL Lactic Acid (0.5-2.0) mmol/L Calcium (8.4-10.2) mg/dL Total Bilirubin (0.0-1.0) mg/dL AST (5-31) U/L ALT (0-31) U/L Alkaline Phosphatase (39-117) U/L Total Protein (6.5-8.0) g/dL Albumin (3.5-5.0) g/dL COVID-19 (THEA) Negative (Negative) COVID-19 Clin Com See Note ECG Data Attestation: I personally reviewed and interpreted this ECG as follows: Interpretation: Normal sinus rhythm heart rate 84 beats per minute normal troponin normal axis no acute STT wave changes no acute ischemia Discharge Plan Discharge Clinical Impression: Pneumonia Patient Disposition: Admitted As Inpatient
[2021-05-07 17:26] VITALS: BP 148/56; PULSE 81; RESP 20; O2SAT 97
[2021-05-07] MEDS: 0.9 % Sodium Chloride 1,000 ML 999 ML IV (17:31)
[2021-05-07 17:33] LABS: MANUAL DIFF FLAG NO
[2021-05-07 17:35] LABS: Basophils Absolute Auto 0.1 X10*3/uL (0.0-0.2); Basophils Percent Auto 0.6 % (0-2); Eosinophils Percent Auto 0.1 % (0-4); Hematocrit 26.7 % (37.0-47.0); Hemoglobin 8.1 g/dl (12.0-16.0); Imm Gran Abs Auto 4.59 X10*3/uL (0.00-0.03); Imm Gran Pct Auto 23.4 % (0.0-0.4); LEFT SHIFT? 1; Lymphocytes Absolute Auto 1.2 X10*3/uL (1.2-4.9); Lymphocytes Percent Auto 5.9 % (20-40); Mean Corpuscular HGB Conc 30.3 g/dl (31.0-35.0); Mean Corpuscular Hemoglobin 24.8 pg (27.0-33.0); Mean Corpuscular Volume 81.9 fL (80.0-98.0); Monocytes Percent Auto 0.2 % (2-11); Neutrophils Absolute Auto 13.7 x10*3/uL (2.0-8.3); Neutrophils Percent Auto 69.8 % (45-73); Platelet Count 235 X10*3/uL (160-400); Red Blood Count 3.26 X10*6/uL (4.20-5.50); Red Cell Distribution Width 21.7 % (11.0-16.0); SCAN SMEAR FLAG 1; White Blood Count 19.6 X10*3/uL (4.8-10.8)
[2021-05-07 17:43] VITALS: PULSE 81; RESP 16; O2SAT 99
[2021-05-07] MEDS: Albuterol/Iprat 2.5/0.5MG 3 ML AMPUL.NEB INHALE (17:43)
[2021-05-07 17:46] LABS: Lactic Acid 1.3 mmol/L (0.5-2.0)
[2021-05-07 17:55] LABS: COVID-19 Test Negative (Negative)
[2021-05-07 17:56] LABS: Alanine Aminotransferase 16 U/L (0-31); Albumin Level 3.2 g/dL (3.5-5.0); Alkaline Phosphatase 65 U/L (39-117); Anion Gap 15 (12-20); Aspartate Amino Transferase 16 U/L (5-31); Bilirubin Total 0.3 mg/dL (0.0-1.0); Blood Urea Nitrogen 13 mg/dL (9-16); Calcium 8.9 mg/dL (8.4-10.2); Carbon Dioxide 24 mmol/L (22-29); Chloride 99 mmol/L (96-108); Creatinine Clr Calc Pharmacy 71.5; Estimated Glomerular Filt Rate > 60; Glucose Random 197 mg/dL (60-115); Potassium 4.3 mmol/L (3.3-5.1); Sodium 134 mmol/L (135-145); Total Protein 6.1 g/dL (6.5-8.0)
[2021-05-07 18:20] LABS: Atypical Lymph Absolute Manual 0.2 x10*3/uL; Atypical Lymphs Percent Manual 1 % (0-6); Band Neutrophils Percent 5 % (3-5); Lymphocytes Absolute Manual 1.4 X10*3/uL (1.2-4.9); Lymphocytes Percent Manual 7 % (20-40); Microcytosis 1+ (5-14) /OIF; Neutrophils Percent Manual 87 % (45-73); Ovalocytes 1+ (5-14) /OIF; Platelet Estimate NORMAL (NORMAL); Platelet Morphology Comment NORMAL; RBC Morphology NOTED
[2021-05-07 18:21] LABS: Dohle Bodies PRESENT; Hypersegmented Neutrophils PRESENT; Schistocytes 1+ (0-2) /OIF; Toxic Vacuolation PRESENT
[2021-05-07] MEDS: Piperacillin Sodium/Tazobactam 3.375 GM in 0.9 % Sodium Chloride 50 ML IV (18:26)
[2021-05-07 18:29] VITALS: BP 151/56; PULSE 86; RESP 20; O2SAT 97
--- NOTE | 2021-05-07 21:12 | PHA.MEDREC ---
Pharmacy Consult ? Medication Reconciliation Pharmacy has completed the medication reconciliation. Spoke with pt
--- NOTE | 2021-05-07 21:38 | P.HPHOSP_ITS ---
History of Present Illness Date of Service: 05/07/21 Chief Complaint: SOB This is an 80-year-old female with past medical history of metastatic small-cell lung cancer recently in chemotherapy COPD, diabetes, hypertension presents to the hospital with complaints of worsening cough and shortness of breath. Patient reports that she chronically has shortness of breath but has worsened over the past 3 days. She has increased cough and sputum production but has difficulty bringing up the phlegm. She has also had 1 episode of diarrhea that has now resolved. She denies any fever or chills, no abdominal pain nausea or vomiting, no urinary symptoms and no lower extremity edema. She denies any orthopnea or PND. On arrival to the ED patient hemodynamically stable with a respiratory rate of 22, satting 98% on her home O2 of 3 L Labs are significant for WBC count of 19.6, hemoglobin of 8.1 which is around her baseline, hematocrit 26.7, sodium 134, glucose of 182, COVID-19 negative Chest x-ray shows multifocal bilateral airspace opacities suspected for pneumonia Patient will be admitted for further management Review of Systems Verdana 4l Review of Systems: Yes all other systems are reviewed and Verdana 4d are negative FOR[facility] Medical History COPD (chronic obstructive pulmonary disease) Diabetes mellitus, type 2 Hypertension Family History Mother Breast cancer Diabetes HTN (hypertension) Father Lung cancer Surgical History History of section Social History Household Members: Family Housing: House Do you presently have visiting nurse or other home services: No Alcohol intake: never Patient Tobacco Use Status: Former Tobacco user Tobacco use type: Cigarette Advance Directives: Yes Advance Directives on File: Yes Advance Directives Date on File: 03/28/21 service: No Current occupational status: retired Meds Allergies Allergy/AdvReac Type Severity Reaction Status Date / Time No Known Drug Allergies Allergy Unknown Verified 03/28/21 16:03 Active Medications: Current Medications Pharmacy Consult (Consult Rx Perform Med Rec) 1 each MISCELLANE ONCE PRN PRN Reason: Consult order Home Medications Medication Instructions Recorded Confirmed Last Taken Type citalopram 20 mg 40 mg PO DAILY 02/28/21 05/07/21 03/24/21 History tablet glipizide 5 mg 10 mg PO BID 02/28/21 05/07/21 03/24/21 History tablet insulin glargine 20 unit SUBCUT 02/28/21 05/07/21 03/24/21 History 100 unit/mL (3 BEDTIME mL) subcutaneous pen (Lantus Solostar U-100 Insulin) irbesartan 75 mg 75 mg PO DAILY 02/28/21 05/07/21 03/24/21 History tablet metformin 500 mg 1,000 mg PO BID 02/28/21 05/07/21 03/24/21 History tablet,extended release 24 hr montelukast 10 mg 1 tab PO BEDTIME 02/28/21 05/07/21 03/24/21 History tablet oxybutynin 1 tab PO TID PRN 02/28/21 05/07/21 03/24/21 History chloride 5 mg tablet pantoprazole 40 40 mg PO DAILY 02/28/21 05/07/21 03/24/21 History mg tablet,delayed release pravastatin 40 mg 40 mg PO DAILY 02/28/21 05/07/21 03/24/21 History tablet ammonium lactate 1 applic TOPICAL 05/07/21 05/07/21 Unknown History 12 % topical BID cream enoxaparin 100 100 mg SUBCUT 05/07/21 05/07/21 Unknown History mg/mL Q12H subcutaneous syringe morphine 30 mg 30 mg PO Q12H 05/07/21 05/07/21 Unknown History tablet,extended release (MS Contin) Physical Exam Verdana 4l Vital Signs and Narrative: Verdana 4d Verdana 4d Vital Signs: Verdana 4d Verdana 4Bd Last Vital Signs Verdana 4d Geriatric Nurse New 4d Geriatric Nurse New 4d Temp 99.3 F 05/07/21 16:07 Geriatric Nurse New 4d Pulse 86 05/07/21 18:29 Geriatric Nurse New 4d Resp 20 05/07/21 18:29 BP 151/56 H 05/07/21 18:29 Pulse Ox 97 05/07/21 18:29 Oxygen Flow Rate 3 05/07/21 16:07 BMI result Body Mass Index 40.4 Const: General: cooperative and no acute distress Orientation/consciousness: patient oriented x3 Eyes: General: appearance normal, both eyes and all related structures Pupils: Equal, round and reactive pupils present Resp: Other: crackles bilaterally Effort & Inspection: normal respiratory effort Cardio: Rate: regular rate Rhythm: regular rhythm GI: Palpation (GI): Soft to palpation Auscultation: normal bowel sounds Skin: General skin exam: no rashes or lesions noted Neuro: General: patient oriented x3 Cranial nerves: Yes Equal, round and reactive pupils present Cognition (Neuro): normal cognition Extrem: General: Yes normal to inspection and Yes no pedal edema Results Labs CBC and Chem 7: 05/07/21 17:24 05/07/21 17:24 Labs: Laboratory Results - last 24 hr 05/07/21 05/07/21 05/07/21 17:24 17:24 17:24 MCV 81.9 MCH 24.8 L MCHC 30.3 L RDW 21.7 H Plt Count 235 D MPV 9.0 L Immature Gran % (Auto) 23.4 H Neut % (Auto) 69.8 Lymph % (Auto) 5.9 L [place] % (Auto) 0.2 L Eos % (Auto) 0.1 Baso % (Auto) 0.6 Lymph # (Auto) 1.2 [place] # (Auto) 0.0 L Eos # (Auto) 0.0 Baso # (Auto) 0.1 Abs Immat Gran (auto) 4.59 H Absolute Neuts (auto) 13.7 H Absolute Nucleated RBC 0.000 Nucleated RBC % (auto) 0.0 Neutrophils % (Manual) 87 H Band Neutrophils % 5 Lymphocytes % (Manual) 7 L Atypical Lymphs % (Man) 1 Abs Neuts (Manual) 18.0 H Lymphocytes # (Manual) 1.4 Atyp Lymphs # (Manual) 0.2 Hypersegmented Neuts PRESENT Toxic Vacuolation PRESENT Dohle Bodies PRESENT Platelet Estimate NORMAL Plt Morphology Comment NORMAL RBC Morphology NOTED Microcytosis 1+ (5-14) Ovalocytes 1+ (5-14) Schistocytes 1+ (0-2) Anion Gap 15 Estim Creat Clear Calc 71.5 Estimated GFR > 60 Random Glucose 197 H Lactic Acid 1.3 Calcium 8.9 Total Bilirubin 0.3 AST 16 ALT 16 Alkaline Phosphatase 65 Total Protein 6.1 L Albumin 3.2 L COVID-19 (THEA) COVID-19 Clin Com 05/07/21 17:24 MCV MCH MCHC RDW Plt Count MPV Immature Gran % (Auto) Neut % (Auto) Lymph % (Auto) [place] % (Auto) Eos % (Auto) Baso % (Auto) Lymph # (Auto) [place] # (Auto) Eos # (Auto) Baso # (Auto) Abs Immat Gran (auto) Absolute Neuts (auto) Absolute Nucleated RBC Nucleated RBC % (auto) Neutrophils % (Manual) Band Neutrophils % Lymphocytes % (Manual) Atypical Lymphs % (Man) Abs Neuts (Manual) Lymphocytes # (Manual) Atyp Lymphs # (Manual) Hypersegmented Neuts Toxic Vacuolation Dohle Bodies Platelet Estimate Plt Morphology Comment RBC Morphology Microcytosis Ovalocytes Schistocytes Anion Gap Estim Creat Clear Calc Estimated GFR Random Glucose Lactic Acid Calcium Total Bilirubin AST ALT Alkaline Phosphatase Total Protein Albumin COVID-19 (THEA) Negative COVID-19 Clin Com See Note Imaging Radiologist's Impressions: Impressions Chest X-Ray 05/07/21 18:25 IMPRESSION: Multifocal bilateral airspace opacities suspected for pneumonia. Clinically correlate. Assessment and Plan (1) Community acquired pneumonia: Status: Acute (2) Lung cancer: Status: Acute (3) COPD exacerbation: Status: Acute Plan 80-year-old female with metastatic lung cancer who presents to the hospital with shortness of breath, increased cough and sputum production # CAP - covid -ve - bilateral infiltrates on cxr - pt uses 3 L of O2 at home- no hypoxia - will tx w iv abx - follow cultures # COPD exacerbation - dyspnea, cough, sputum production - duoneb PRN and sched , Solumedrol # Lung cancer - follow up with Heme/onc # HTN - stable - continue home meds # DM - will hold oral antihyperglyceimics - LDSSI - diabetic diet DVT ppx: lovenox Quality Stroke Does the patient have a stroke diagnosis?: No VTE Prior VTE?: No VTE Risk Level:: Medical - moderate - high VTE Device Contraindication: Treatment Not Indicated VTE Drug Contraindication: N/A - Med Ordered
[2021-05-07 21:55] VITALS: BP 149/51; PULSE 80; RESP 22; TEMP 37.3; O2SAT 96
[2021-05-07 22:03] LABS: Glucose, Whole Blood 182 mg/dL (60-115)
[2021-05-07] MEDS: Insulin Glargine,Hum.rec.anlog 100 UNIT/ML 10 ML VIAL 20 UNIT SUBCUT (22:06)
[2021-05-07] MEDS: Enoxaparin Sodium 100 MG/ML SYRINGE SUBCUT (22:07)
[2021-05-07] MEDS: methylPREDNISolone Sod Succ 40 MG/ML VIAL IVPUSH (22:07)
[2021-05-07] MEDS: Azithromycin 500 MG in 0.9 % Sodium Chloride 250 ML 125 MG IV (22:09)
[2021-05-07 22:29] LABS: INTERNATIONAL NORM RATIO 1.1 (0.9-1.1); Prothrombin Time 12.9 SEC (9.9-13.0)
--- NOTE | 2021-05-07 23:02 | ECG_ITS ---
Test Reason : REPEAT Blood Pressure : / mmHG Vent. Rate : 084 BPM Atrial Rate : 084 BPM P-R Int : 210 ms QRS Dur : 080 ms QT Int : 374 ms P-R-T Axes : 063 -12 018 degrees QTc Int : 441 ms Sinus rhythm with 1st degree A-V block Otherwise normal ECG When compared with ECG of 25-MAR-2021 10:53, [place] interval has increased Referred By: Jose Morrow Electronically Signed By:NURY SINHA MD
[2021-05-08] VITALS (8 sets, daily range): BP systolic 126–151; BP diastolic 49–59; PULSE 63–115; RESP 16–20; TEMP 36.8–37; O2SAT 92–97
[2021-05-08] MEDS: cefTRIAXone sodium 1 GM in 0.9 % Sodium Chloride 50 ML IV ×2 (00:24→23:02)
--- NOTE | 2021-05-08 06:36 | PM.EVENT ---
Event Note Date of Service: 05/08/21 Event Note: pt wants to leave AMA. she doesnt want to be treated for PNA and reports that if im going to , id rather at home . i informed her that it is less likely that she would on this admission and that she will need abx for treatment of PNA. She wants to go on home on hospice. I was able to convince pt to stay to meet with hospice in AM , pt agreeable at this time
--- NOTE | 2021-05-08 06:42 | PC.NURSE ---
Hospitalist spoke with patient, who will call her son. Pt would like to go home on hospice.
[2021-05-08] MEDS: Omeprazole 20 MG CAPSULE.DR PO (06:43)
[2021-05-08 06:50] LABS: Hematocrit 26.1 % (37.0-47.0); Hemoglobin 8.2 g/dl (12.0-16.0); Mean Corpuscular HGB Conc 31.4 g/dl (31.0-35.0); Mean Corpuscular Hemoglobin 25.3 pg (27.0-33.0); Mean Corpuscular Volume 80.6 fL (80.0-98.0); Mean Platelet Volume 9.9 fL (9.4-12.3); Platelet Count 200 X10*3/uL (160-400); Red Blood Count 3.24 X10*6/uL (4.20-5.50); Red Cell Distribution Width 21.7 % (11.0-16.0); White Blood Count 15.4 X10*3/uL (4.8-10.8)
--- NOTE | 2021-05-08 07:01 | PC.NURSE ---
REPORT GIVEN TO HENRY LANDEROS.
[2021-05-08 07:04] LABS: INTERNATIONAL NORM RATIO 1.1 (0.9-1.1); Prothrombin Time 12.8 SEC (9.9-13.0)
[2021-05-08 07:19] LABS: Anion Gap 14 (12-20); Blood Urea Nitrogen 10 mg/dL (9-16); Calcium 8.9 mg/dL (8.4-10.2); Carbon Dioxide 22 mmol/L (22-29); Chloride 103 mmol/L (96-108); Creatinine Clr Calc Pharmacy 79.3; Estimated Glomerular Filt Rate > 60; Glucose Random 225 mg/dL (60-115); Potassium 4.1 mmol/L (3.3-5.1); Sodium 135 mmol/L (135-145)
[2021-05-08 07:35] LABS: Band Neutrophils Percent 3 % (3-5); Lymphocytes Absolute Manual 0.6 X10*3/uL (1.2-4.9); Lymphocytes Percent Manual 4 % (20-40); Monocytes Absolute Manual 0.2 X10*3/uL (0.1-1.2); Monocytes Percent Manual 1 % (2-11); Neutrophils Absolute Manual 14.6 X10*3/uL (2.0-8.3); Neutrophils Percent Manual 92 % (45-73)
[2021-05-08 07:36] LABS: Dohle Bodies PRESENT; Microcytosis 1+ (5-14) /OIF; RBC Morphology NOTED
[2021-05-08 07:37] LABS: Acanthocytes 1+ (0-2) /OIF; Hypochromasia 1+ (5-14) /OIF; Ovalocytes 1+ (5-14) /OIF; Platelet Estimate NORMAL (NORMAL); Platelet Morphology Comment NORMAL; Schistocytes 1+ (0-2) /OIF; Tear Drop Cells 1+ (0-2) /OIF
[2021-05-08] MEDS: ondansetron HCL 4 MG/2 ML VIAL IVPUSH (07:46)
[2021-05-08] MEDS: Escitalopram Oxalate 20 MG TABLET PO (07:47)
[2021-05-08] MEDS: oxyCODONE HCl Immed Release 5 MG TABLET PO (07:47)
[2021-05-08] MEDS: Morphine Sulfate ER 30 MG TABLET.ER PO ×2 (07:47→22:51)
[2021-05-08] MEDS: Valsartan 40 MG TABLET PO (07:47)
[2021-05-08] MEDS: Pravastatin Sodium 40 MG TABLET PO (07:47)
[2021-05-08] MEDS: Albuterol/Iprat 2.5/0.5MG 3 ML AMPUL.NEB INHALE ×4 (08:30→19:45)
[2021-05-08] MEDS: 0.9 % Sodium Chloride Flush 3 ML SYRINGE IVFLUSH ×3 (09:00→23:03)
[2021-05-08] MEDS: methylPREDNISolone Sod Succ 40 MG/ML VIAL IVPUSH ×2 (10:55→22:56)
[2021-05-08] MEDS: Enoxaparin Sodium 100 MG/ML SYRINGE SUBCUT ×2 (10:55→22:57)
--- NOTE | 2021-05-08 10:59 | PC.NURSE ---
patient a&ox3, cafeteria monitor nsr 70s, vitals obtained, patients O2 sat 92-93% on 3L O2, patient encouraged to cough, deep breathe her o2 sat increased to 96%, will continue to monitor.
--- NOTE | 2021-05-08 13:34 | P.PNIM_ITS ---
Subjective Subjective Date of Service: 05/08/21 Interval History: panemonia Review of Systems sob seems somewhat improving , has cough Physical Exam Verdana 4l Vital Signs: Verdana 4d Verdana 4d Vital Signs: Verdana 4d Verdana 4Bd Last Vital Signs Verdana 4d Corporate Coordinator New 4d Corporate Coordinator New 4d Temp 98.3 F 05/08/21 10:56 Corporate Coordinator New 4d Pulse 67 05/08/21 12:35 Corporate Coordinator New 4d Resp 18 05/08/21 12:35 BP 151/58 H 05/08/21 10:56 Pulse Ox 92 05/08/21 10:56 Oxygen Flow Rate 3 05/07/21 16:07 BMI result Body Mass Index 40.4 physical exam: Appearance: Alert.? Oriented X3.? not in distress.? Eyes: Pupils equal, round and reactive to light.? Sclera nonicteric. cvs: rrr, [id number] , no murmur res: air entry seems improving , has few scattered rhonchii bilateral abd: no rebound or guarding ,nt, bs present. ext pulses present , no cyanosis ,Gait well balanced well coordinated. neuro: axo3 , nonfocal. Objective Data Active Medications Acetaminophen (Acetaminophen 325 Mg Tablet) 650 mg PO Q6H PRN PRN Reason: Pain, Mild (Pain Scale 1-3) Albuterol/Ipratropium (Albuterol/Iprat 2.5/0.5mg 3 Ml Ampul.Neb) 3 ml INHALE Q4H PRN PRN Reason: Shortness of Breath/Wheezing Albuterol/Ipratropium (Albuterol/Iprat 2.5/0.5mg 3 Ml Ampul.Neb) 3 ml INHALE RQ4H WHILE AWAKE [facility] Last Admin: 05/08/21 12:35 Dose: 3 ml Documented by: ULRICC Docusate Sodium (Docusate Sodium 100 Mg Capsule) 100 mg PO DAILY PRN PRN Reason: Constipation Enoxaparin Sodium (Enoxaparin Sodium 100 Mg/Ml Syringe) 100 mg SUBCUT Q12H [facility] Last Admin: 05/08/21 10:55 Dose: 100 mg Documented by: MADDENL Escitalopram Oxalate (Escitalopram Oxalate 20 Mg Tablet) 20 mg PO DAILY [facility] Last Admin: 05/08/21 07:47 Dose: 20 mg Documented by: CLEMENTE Ceftriaxone Sodium 1 gm/ (Sodium Chloride) 50 mls @ 100 mls/hr IV Q24H [facility] Last Infusion: 05/08/21 01:07 Dose: 0 mls/hr Documented by: [place] Azithromycin 500 mg/ Sodium (Chloride) 250 mls @ 125 mls/hr IV Q24H [facility] Last Infusion: 05/08/21 00:21 Dose: 0 mls/hr Documented by: [place] Insulin Glargine (Insulin Glargine,Hum.Rec.Anlog 100 Unit/Ml 10 Ml Vial) 20 unit SUBCUT BEDTIME [facility] Last Admin: 05/07/21 22:06 Dose: 20 unit Documented by: [place] Methylprednisolone Sodium Succinate (Methylprednisolone Sod Succ 40 Mg/Ml Vial) 40 mg IVPUSH Q12H [facility] Last Admin: 05/08/21 10:55 Dose: 40 mg Documented by: MADDENPravin Montelukast Sodium (Montelukast Sodium 10 Mg Tablet) 10 mg PO BEDTIME [facility] Morphine Sulfate (Morphine Sulfate Er 30 Mg Tablet.Er) 30 mg PO BID [facility] Last Admin: 05/08/21 07:47 Dose: 30 mg Documented by: CLEMENTE Omeprazole (Omeprazole 20 Mg Capsule.Dr) 20 mg PO DAILY@0630 [facility] Last Admin: 05/08/21 06:43 Dose: 20 mg Documented by: KATHY Ondansetron HCl (Ondansetron Hcl 4 Mg/2 Ml Vial) 4 mg IVPUSH Q8H PRN PRN Reason: Nausea and Vomiting Last Admin: 05/08/21 07:46 Dose: 4 mg Documented by: CLEMENTE Oxybutynin Chloride (Oxybutynin Chloride Er 5 Mg Tab.Er.24) 15 mg PO DAILY PRN PRN Reason: URINARY SYMPTOMS Oxycodone HCl (Oxycodone Hcl Immed Release 5 Mg Tablet) 5 mg PO Q4H PRN PRN Reason: Pain, Severe (Pain Scale 7-10) Last Admin: 05/08/21 07:47 Dose: 5 mg Documented by: CLEMENTE Pharmacy Consult (Consult Rx Perform Med Rec) 1 each MISCELLANE ONCE PRN PRN Reason: Consult order Pravastatin Sodium (Pravastatin Sodium 40 Mg Tablet) 40 mg PO DAILY [facility] Last Admin: 05/08/21 07:47 Dose: 40 mg Documented by: CLEMENTE Sodium Chloride (0.9 % Sodium Chloride Flush 3 Ml Syringe) 3 ml IVFLUSH QSHIFT [facility] Last Admin: 05/08/21 09:00 Dose: 3 ml Documented by: CLEMENTE Valsartan (Valsartan 40 Mg Tablet) 40 mg PO DAILY [facility] Last Admin: 05/08/21 07:47 Dose: 40 mg Documented by: CLEMENTE Labs CBC & Chem 7: 05/08/21 06:25 05/08/21 06:25 Labs: Laboratory Results - last 24 hr 05/07/21 05/07/21 05/07/21 17:24 17:24 17:24 MCV 81.9 MCH 24.8 L MCHC 30.3 L RDW 21.7 H Plt Count 235 D MPV 9.0 L Immature Gran % (Auto) 23.4 H Neut % (Auto) 69.8 Lymph % (Auto) 5.9 L Dodge % (Auto) 0.2 L Eos % (Auto) 0.1 Baso % (Auto) 0.6 Lymph # (Auto) 1.2 Dodge # (Auto) 0.0 L Eos # (Auto) 0.0 Baso # (Auto) 0.1 Abs Immat Gran (auto) 4.59 H Absolute Neuts (auto) 13.7 H Absolute Nucleated RBC 0.000 Nucleated RBC % (auto) 0.0 Neutrophils % (Manual) 87 H Band Neutrophils % 5 Lymphocytes % (Manual) 7 L Atypical Lymphs % (Man) 1 Monocytes % (Manual) Abs Neuts (Manual) 18.0 H Lymphocytes # (Manual) 1.4 Atyp Lymphs # (Manual) 0.2 Monocytes # (Manual) Hypersegmented Neuts PRESENT Toxic Vacuolation PRESENT Dohle Bodies PRESENT Platelet Estimate NORMAL Plt Morphology Comment NORMAL RBC Morphology NOTED Hypochromasia Microcytosis 1+ (5-14) Tear Drop Cells Ovalocytes 1+ (5-14) Acanthocytes (Spur) Schistocytes 1+ (0-2) PT INR Anion Gap 15 Estim Creat Clear Calc 71.5 Estimated GFR > 60 POC Glucose Random Glucose 197 H Lactic Acid 1.3 Calcium 8.9 Total Bilirubin 0.3 AST 16 ALT 16 Alkaline Phosphatase 65 Total Protein 6.1 L Albumin 3.2 L COVID-19 (THEA) COVID-19 Clin Com 05/07/21 05/07/21 05/07/21 17:24 21:57 22:02 MCV MCH MCHC RDW Plt Count MPV Immature Gran % (Auto) Neut % (Auto) Lymph % (Auto) Dodge % (Auto) Eos % (Auto) Baso % (Auto) Lymph # (Auto) Dodge # (Auto) Eos # (Auto) Baso # (Auto) Abs Immat Gran (auto) Absolute Neuts (auto) Absolute Nucleated RBC Nucleated RBC % (auto) Neutrophils % (Manual) Band Neutrophils % Lymphocytes % (Manual) Atypical Lymphs % (Man) Monocytes % (Manual) Abs Neuts (Manual) Lymphocytes # (Manual) Atyp Lymphs # (Manual) Monocytes # (Manual) Hypersegmented Neuts Toxic Vacuolation Dohle Bodies Platelet Estimate Plt Morphology Comment RBC Morphology Hypochromasia Microcytosis Tear Drop Cells Ovalocytes Acanthocytes (Spur) Schistocytes PT 12.9 INR 1.1 Anion Gap Estim Creat Clear Calc Estimated GFR POC Glucose 182 H Random Glucose Lactic Acid Calcium Total Bilirubin AST ALT Alkaline Phosphatase Total Protein Albumin COVID-19 (THEA) Negative COVID-19 Clin Com See Note 05/08/21 05/08/21 05/08/21 06:25 06:25 06:25 MCV 80.6 MCH 25.3 L MCHC 31.4 RDW 21.7 H Plt Count 200 MPV 9.9 Immature Gran % (Auto) Cancelled Neut % (Auto) Cancelled Lymph % (Auto) Cancelled Dodge % (Auto) Cancelled Eos % (Auto) Cancelled Baso % (Auto) Cancelled Lymph # (Auto) Cancelled Dodge # (Auto) Cancelled Eos # (Auto) Cancelled Baso # (Auto) Cancelled Abs Immat Gran (auto) Cancelled Absolute Neuts (auto) Cancelled Absolute Nucleated RBC 0.000 Nucleated RBC % (auto) 0.0 Neutrophils % (Manual) 92 H Band Neutrophils % 3 Lymphocytes % (Manual) 4 L Atypical Lymphs % (Man) Monocytes % (Manual) 1 L Abs Neuts (Manual) 14.6 H Lymphocytes # (Manual) 0.6 L Atyp Lymphs # (Manual) Monocytes # (Manual) 0.2 Hypersegmented Neuts Toxic Vacuolation Dohle Bodies PRESENT Platelet Estimate NORMAL Plt Morphology Comment NORMAL RBC Morphology NOTED Hypochromasia 1+ (5-14) Microcytosis 1+ (5-14) Tear Drop Cells 1+ (0-2) Ovalocytes 1+ (5-14) Acanthocytes (Spur) 1+ (0-2) Schistocytes 1+ (0-2) PT 12.8 INR 1.1 Anion Gap 14 Estim Creat Clear Calc 79.3 Estimated GFR > 60 POC Glucose Random Glucose 225 H Lactic Acid Calcium 8.9 Total Bilirubin AST ALT Alkaline Phosphatase Total Protein Albumin COVID-19 (THEA) COVID-19 Clin Com Assessment and Plan (1) COPD exacerbation: Status: Acute (2) Pneumonia: Status: Acute Plan 80-year-old female with metastatic lung cancer who presents to the hospital with shortness of breath, increased cough and sputum production 1. CAP- covid -ve still sob , has cough -minimum improvement. bilateral infiltrates on cxr - pt uses 3 L of O2 at home- no hypoxia continue iv abx, follow cultures 2.COPD exacerbation - dyspnea, cough, sputum production - duoneb PRN and sched , Solumedrol 3. Lung cancer- follow up with Heme/onc 4. HTN- stable - continue home meds 5. DM - will hold oral antihyperglyceimics - LDSSI - diabetic diet DVT ppx: lovenox Quality Stroke Does the patient have a stroke diagnosis?: No VTE Prior VTE?: No VTE Risk Level:: Medical - moderate - high VTE Device Contraindication: Treatment Not Indicated VTE Drug Contraindication: N/A - Med Ordered
[2021-05-08 13:43] LABS: Glucose, Whole Blood 200 mg/dL (60-115)
[2021-05-08] MEDS: Albuterol Sulfate (0.083%) 2.5 MG/3 ML VIAL.NEB 7.5 MG INHALE (15:31)
[2021-05-08] MEDS: Magnesium Sulfate/H2O 2 GM/50 ML PIGGYBACK IV (15:35)
--- NOTE | 2021-05-08 15:35 | PC.NURSE ---
RT came to patients room to do breathing treatment and noticed patient with increased sob, provider was notified, pt has 1hr updraft running at this time, mag started per order, pt sinus tach on equipment monitor phototypesetting, will continue to monitor.
--- NOTE | 2021-05-08 15:37 | MHC.CM.PN ---
Met with pt to discuss d/c planning; pt lives with grd dtr and has services with [facility] and O2 from [facility]. Pt has no transportation barriers. COVID vax x3, HCP copy requested, IMM signed and in ED chart. D/C plan is for a return to home with existing supports: family can transport
[2021-05-08 15:48] LABS: VBG Base Excess -2.1 mmol/L; VBG HCO3 23 mmol/L (22-26); VBG pCO2 42 mmHg; VBG pH 7.34 (7.32-7.43); VBG pO2 38 mmHg
[2021-05-08 15:50] LABS: Venous Blood Gas Refer to POC result
--- NOTE | 2021-05-08 17:29 | PC.NURSE ---
called floor to give report
--- NOTE | 2021-05-08 18:16 | PC.NURSE ---
REPORT GIVEN TO FLOOR
[2021-05-08 19:54] LABS: Glucose, Whole Blood 399 mg/dL (60-115)
[2021-05-08] MEDS: Montelukast Sodium 10 MG TABLET PO (22:51)
[2021-05-08] MEDS: Insulin Glargine,Hum.rec.anlog 100 UNIT/ML 10 ML VIAL 20 UNIT SUBCUT (22:56)
[2021-05-08] MEDS: Azithromycin 500 MG in 0.9 % Sodium Chloride 250 ML 125 MG IV (22:57)
[2021-05-09 04:00] VITALS: BP 153/75; PULSE 78; RESP 18; TEMP 37.1; O2SAT 97
[2021-05-09 04:53] LABS: Hematocrit 25.5 % (37.0-47.0); Hemoglobin 7.7 g/dl (12.0-16.0); Mean Corpuscular HGB Conc 30.2 g/dl (31.0-35.0); Mean Corpuscular Hemoglobin 24.8 pg (27.0-33.0); Mean Platelet Volume 9.9 fL (9.4-12.3); Platelet Count 165 X10*3/uL (160-400); Red Blood Count 3.11 X10*6/uL (4.20-5.50); White Blood Count 8.9 X10*3/uL (4.8-10.8)
[2021-05-09 05:10] LABS: Anion Gap 14 (12-20); Blood Urea Nitrogen 12 mg/dL (9-16); Calcium 8.9 mg/dL (8.4-10.2); Carbon Dioxide 22 mmol/L (22-29); Chloride 103 mmol/L (96-108); Creatinine Clr Calc Pharmacy 71.5; Estimated Glomerular Filt Rate > 60; Glucose Random 320 mg/dL (60-115); Potassium 4.9 mmol/L (3.3-5.1); Sodium 134 mmol/L (135-145)
[2021-05-09] MEDS: Omeprazole 20 MG CAPSULE.DR PO (06:37)
[2021-05-09 07:18] VITALS: BP 173/78; PULSE 78; RESP 18; TEMP 36.6; O2SAT 95
--- NOTE | 2021-05-09 07:26 | P.PNIM_ITS ---
Subjective Subjective Date of Service: 05/09/21 Interval History: Acute on chronic hypoxemic respiratory failure secondary to COPD exacerbation, pneumonia Review of Systems Patient stillshort of breath, for slightly better than yesterday. Having paroxysm of cough and shortness of breath in between. Denies any chest pain or abdominal pain or nausea vomiting or diarrhea Physical Exam Verdana 4l Vital Signs: Verdana 4d Verdana 4d Vital Signs: Verdana 4d Verdana 4Bd Last Vital Signs Verdana 4d Pad Tufter New 4d Pad Tufter New 4d Temp 97.9 F 05/09/21 07:18 Pad Tufter New 4d Pulse 78 05/09/21 07:18 Pad Tufter New 4d Resp 18 05/09/21 07:18 BP 173/78 H 05/09/21 07:18 Pulse Ox 95 05/09/21 07:18 Oxygen Flow Rate 3 05/07/21 16:07 BMI result Body Mass Index 40.4 Objective Data Active Medications Acetaminophen (Acetaminophen 325 Mg Tablet) 650 mg PO Q6H PRN PRN Reason: Pain, Mild (Pain Scale 1-3) Albuterol/Ipratropium (Albuterol/Iprat 2.5/0.5mg 3 Ml Ampul.Neb) 3 ml INHALE Q4H PRN PRN Reason: Shortness of Breath/Wheezing Albuterol/Ipratropium (Albuterol/Iprat 2.5/0.5mg 3 Ml Ampul.Neb) 3 ml INHALE RQ4H WHILE AWAKE [facility] Last Admin: 05/08/21 19:45 Dose: 3 ml Documented by: CYRUS Dextrose (Dextrose 50 % 25 Gm/50 Ml Syringe) 25 gm IVPUSH Q15M PRN; Protocol PRN Reason: per Hypoglycemia Standing Ord. Docusate Sodium (Docusate Sodium 100 Mg Capsule) 100 mg PO DAILY PRN PRN Reason: Constipation Enoxaparin Sodium (Enoxaparin Sodium 100 Mg/Ml Syringe) 100 mg SUBCUT Q12H [facility] Last Admin: 05/08/21 22:57 Dose: 100 mg Documented by: SANAM Escitalopram Oxalate (Escitalopram Oxalate 20 Mg Tablet) 20 mg PO DAILY [facility] Last Admin: 05/08/21 07:47 Dose: 20 mg Documented by: CLEMENTE Glucose (Glucose Gel 15 Gm Gel..Gram.) 15 gm PO Q15M PRN; Protocol PRN Reason: per Hypoglycemia Standing Ord. Ceftriaxone Sodium 1 gm/ (Sodium Chloride) 50 mls @ 100 mls/hr IV Q24H [facility] Last Infusion: 05/09/21 00:53 Dose: 100 mls/hr Documented by: SANAM Azithromycin 500 mg/ Sodium (Chloride) 250 mls @ 125 mls/hr IV Q24H [facility] Last Infusion: 05/09/21 02:34 Dose: 125 mls/hr Documented by: SANAM Insulin Glargine (Insulin Glargine,Hum.Rec.Anlog 100 Unit/Ml 10 Ml Vial) 20 unit SUBCUT BEDTIME [facility] Last Admin: 05/08/21 22:56 Dose: 20 unit Documented by: SANAM Insulin Human Lispro (Insulin Lispro 100 Unit/Ml 3 Ml Vial) 0 unit SUBCUT QIDACHS [facility]; Protocol Methylprednisolone Sodium Succinate (Methylprednisolone Sod Succ 40 Mg/Ml Vial) 40 mg IVPUSH Q12H [facility] Last Admin: 05/08/21 22:56 Dose: 40 mg Documented by: SANAM Montelukast Sodium (Montelukast Sodium 10 Mg Tablet) 10 mg PO BEDTIME [facility] Last Admin: 05/08/21 22:51 Dose: 10 mg Documented by: SANAM Morphine Sulfate (Morphine Sulfate Er 30 Mg Tablet.Er) 30 mg PO BID [facility] Last Admin: 05/08/21 22:51 Dose: 30 mg Documented by: SANAM Omeprazole (Omeprazole 40 Mg Capsule.Dr) 40 mg PO BID [facility] Ondansetron HCl (Ondansetron Hcl 4 Mg/2 Ml Vial) 4 mg IVPUSH Q8H PRN PRN Reason: Nausea and Vomiting Last Admin: 05/08/21 07:46 Dose: 4 mg Documented by: CLEMENTE Oxybutynin Chloride (Oxybutynin Chloride Er 5 Mg Tab.Er.24) 15 mg PO DAILY PRN PRN Reason: URINARY SYMPTOMS Oxycodone HCl (Oxycodone Hcl Immed Release 5 Mg Tablet) 5 mg PO Q4H PRN PRN Reason: Pain, Severe (Pain Scale 7-10) Last Admin: 05/08/21 07:47 Dose: 5 mg Documented by: CLEMENTE Pharmacy Consult (Consult Rx Perform Med Rec) 1 each MISCELLANE ONCE PRN PRN Reason: Consult order Pravastatin Sodium (Pravastatin Sodium 40 Mg Tablet) 40 mg PO DAILY [facility] Last Admin: 05/08/21 07:47 Dose: 40 mg Documented by: CLEMENTE Sodium Chloride (0.9 % Sodium Chloride Flush 3 Ml Syringe) 3 ml IVFLUSH QSHIFT [facility] Last Admin: 05/08/21 23:03 Dose: 3 ml Documented by: SANAM Valsartan (Valsartan 40 Mg Tablet) 40 mg PO DAILY [facility] Last Admin: 05/08/21 07:47 Dose: 40 mg Documented by: CLEMENTE Labs CBC & Chem 7: 05/09/21 04:03 05/09/21 04:03 Labs: Laboratory Results - last 24 hr 05/08/21 05/08/21 05/08/21 06:25 13:34 15:43 MCV MCH MCHC RDW Plt Count MPV Absolute Nucleated RBC Nucleated RBC % (auto) Neutrophils % (Manual) 92 H Band Neutrophils % 3 Lymphocytes % (Manual) 4 L Monocytes % (Manual) 1 L Abs Neuts (Manual) 14.6 H Lymphocytes # (Manual) 0.6 L Monocytes # (Manual) 0.2 Dohle Bodies PRESENT Platelet Estimate NORMAL Plt Morphology Comment NORMAL RBC Morphology NOTED Hypochromasia 1+ (5-14) Microcytosis 1+ (5-14) Tear Drop Cells 1+ (0-2) Ovalocytes 1+ (5-14) Acanthocytes (Spur) 1+ (0-2) Schistocytes 1+ (0-2) VBG pH 7.34 VBG pCO2 42 VBG pO2 38 VBG HCO3 23 VBG O2 Saturation 56.0 VBG Base Excess -2.1 Anion Gap Estim Creat Clear Calc Estimated GFR POC Glucose 200 H Random Glucose Calcium 05/08/21 05/09/21 05/09/21 19:08 04:03 04:03 MCV 82.0 MCH 24.8 L MCHC 30.2 L RDW 22.0 H Plt Count 165 MPV 9.9 Absolute Nucleated RBC 0.000 Nucleated RBC % (auto) 0.0 Neutrophils % (Manual) Band Neutrophils % Lymphocytes % (Manual) Monocytes % (Manual) Abs Neuts (Manual) Lymphocytes # (Manual) Monocytes # (Manual) Dohle Bodies Platelet Estimate Plt Morphology Comment RBC Morphology Hypochromasia Microcytosis Tear Drop Cells Ovalocytes Acanthocytes (Spur) Schistocytes VBG pH VBG pCO2 VBG pO2 VBG HCO3 VBG O2 Saturation VBG Base Excess Anion Gap 14 Estim Creat Clear Calc 71.5 Estimated GFR > 60 POC Glucose 399 H* Random Glucose 320 H Calcium 8.9 Microbiology Microbiology Results: Microbiology 05/07/21 17:24 Blood Culture - Preliminary Blood - Venous No growth after 24 hours. 05/07/21 17:24 Blood Culture - Preliminary Blood - Venous No growth after 24 hours. Assessment and Plan (1) COPD exacerbation: Status: Acute (2) Community acquired pneumonia: Status: Acute Plan 80-year-old female with metastatic lung cancer who presents to the hospital with shortness of breath, increased cough and sputum production 1. CAP- covid -ve still sob , has cough -minimum improvement. ?bilateral infiltrates on cxr - pt uses 3 L of O2 at home ?continue? iv abx, follow cultures 2.ch repiratory failure sec to COPD exacerbation still feels short of breath and has paroxysm of cough intermittently aggressive requiring intermittent all early treatment last evening. - dyspnea, cough, sputum production - duoneb PRN and sched , Solumedrol 3. Lung cancer- follow up with Heme/onc 4. HTN- stable - continue home meds 5. DM - will hold oral antihyperglyceimics - LDSSI - diabetic diet 6. Morbid obesity: Encouraged to lose weight, outpatient management as per PCP, consider bariatric surgery outpatient. DVT ppx: lovenox Quality Stroke Does the patient have a stroke diagnosis?: No VTE Prior VTE?: No VTE Risk Level:: Medical - moderate - high VTE Device Contraindication: Treatment Not Indicated VTE Drug Contraindication: N/A - Med Ordered
[2021-05-09 07:43] LABS: Iron 97 mcg/dL (30-160); Percent Iron Saturation 35 % (15-50); Total Iron Binding Capacity 278 mcg/dL (228-428); Unsaturated Iron Binding 181 ug/dL
[2021-05-09 07:53] LABS: Glucose, Whole Blood 273 mg/dL (60-115)
[2021-05-09] MEDS: Omeprazole 40 MG CAPSULE.DR PO ×2 (08:00→16:30)
[2021-05-09] MEDS: oxyCODONE HCl Immed Release 5 MG TABLET PO (08:00)
[2021-05-09] MEDS: Escitalopram Oxalate 20 MG TABLET PO (08:00)
[2021-05-09] MEDS: Insulin Lispro 100 UNIT/ML 3 ML VIAL SUBCUT ×3 (08:00→22:00)
[2021-05-09] MEDS: Pravastatin Sodium 40 MG TABLET PO (08:01)
[2021-05-09] MEDS: 0.9 % Sodium Chloride Flush 3 ML SYRINGE IVFLUSH ×2 (08:01→16:31)
[2021-05-09] MEDS: Valsartan 40 MG TABLET PO (08:01)
[2021-05-09] MEDS: Morphine Sulfate ER 30 MG TABLET.ER PO ×2 (08:01→21:54)
[2021-05-09 08:31] LABS: Ferritin 1194 ng/mL (10-250)
--- NOTE | 2021-05-09 09:45 | P.CDIC_ITS ---
CDI Concurrent Query Documentation Clarification: PHYSICIAN'S DOCUMENTATION REQUEST Date of Query: 05/09/21 0945 Patient Name: Jacquie Denney Admit Date: 05/07/21 Dear Doctor, A review of the medical record indicates additional documentation may be needed. Please review below and update the documentation accordingly. Clinical Indicators: Verdana 4Bd Risk Factors/Clinical Indicators/Treatments Verdana 4d ED: 05/07 - patient with COPD on 2 liters home oxygen. Sob, chronic cough, lung cancer on chemotherapy. RR 22 Oxygen 3 liters nc Recognized standard criteria for respiratory failure includes: (Source: [facility] Hospitalist Feb 2013) Verdana 4Bd ABGs (1 or more) Symptoms: Verdana 4d ? PO2 <60 or RA SpO2 <91% ? Tachypnea, SOB, dyspnea ? PcO2 >50 and pH <7.35 ? Pallor or cyanosis ? pO2 decrease or pcO2 increase ? Anxiety or restlessness by 10 mm/Hg from baseline if known ? Use of accessory muscles ? Retractions (grunting in newborns) ? Unable to speak in complete sentences Verdana 4Bd P/F ratio < 300 Supplemental O2 requirement of 40% or Intubation is not required more Clarify which of the following accurately represents the patient's respiratory status: * Chronic respiratory failure on home O2 * Acute on chronic respiratory failure on home O2 * Other (please specify) * Unable to determine Use of terms such as suspected, likely, concern for, or probable (associated with a specific diagnosis that is being evaluated, monitored, or treated as if it exists) are acceptable and can be coded in the inpatient setting, when documented at the time of discharge. Thank you, Mera Nunez [facility], CDIS Extension: [phone] Please use your independent medical judgment in providing your response. THIS QUERY IS PART OF THE PERMANENT MEDICAL RECORD Provider Response: Other Other Diagnosis: acute on ch respiratory failure
--- NOTE | 2021-05-09 09:45 | MHC.CDI.CONC ---
CDI Concurrent Query Documentation Clarification: PHYSICIAN'S DOCUMENTATION REQUEST Date of Query: 05/09/21 0945 Patient Name: Jacquie Denney Admit Date: 05/07/21 Dear Doctor, A review of the medical record indicates additional documentation may be needed. Please review below and update the documentation accordingly. Clinical Indicators: Risk Factors/Clinical Indicators/Treatments ED: 05/07 - patient with COPD on 2 liters home oxygen. Sob, chronic cough, lung cancer on chemotherapy. RR 22 Oxygen 3 liters nc Recognized standard criteria for respiratory failure includes: (Source: [facility] Hospitalist Feb 2013) ABGs (1 or more) Symptoms: ? PO2 <60 or RA SpO2 <91% ? Tachypnea, SOB, dyspnea ? PcO2 >50 and pH <7.35 ? Pallor or cyanosis ? pO2 decrease or pcO2 increase ? Anxiety or restlessness by 10 mm/Hg from baseline if known ? Use of accessory muscles ? Retractions (grunting in newborns) ? Unable to speak in complete sentences P/F ratio < 300 Supplemental O2 requirement of 40% or more Intubation is not required Clarify which of the following accurately represents the patient's respiratory status: Chronic respiratory failure on home O2 Acute on chronic respiratory failure on home O2 Other (please specify) Unable to determine Use of terms such as suspected, likely, concern for, or probable (associated with a specific diagnosis that is being evaluated, monitored, or treated as if it exists) are acceptable and can be coded in the inpatient setting, when documented at the time of discharge. Thank you, Mera Nunez [facility], CDIS Extension: [phone] Please use your independent medical judgment in providing your response. THIS QUERY IS PART OF THE PERMANENT MEDICAL RECORD Provider Response: Other Other Diagnosis: acute on ch respiratory failure
[2021-05-09 10:16] VITALS: BMI 40.4
[2021-05-09 11:35] VITALS: BP 147/85; PULSE 75; RESP 18; TEMP 36.3; O2SAT 95
[2021-05-09 11:53] LABS: Glucose, Whole Blood 139 mg/dL (60-115)
--- NOTE | 2021-05-09 11:54 | P.CDIC_ITS ---
CDI Concurrent Query Documentation Clarification: PHYSICIAN'S DOCUMENTATION REQUEST Date of Query: 05/09/21 1156 Patient Name: Jacquie Denney Admit Date: 05/07/21 Dear Doctor, A review of the medical record indicates additional documentation may be needed. Please review below and update the documentation accordingly Verdana 4Bd Risk Factors/Clinical Indicators/Treatments Verdana 4d Nutrition assessment notes 05/09 - extreme obesity III Morbid obesity BMI 40.4 5' 3 Glucerna BID If possible, please provide an associated diagnosis related to the abnormal BMI, such as: For a BMI >= 40: * Overweight * Obesity * Due to excess calories * Drug induced * Due to other cause * Severe or Morbid Obesity Use of terms such as suspected, likely, concern for, or probable (associated with a specific diagnosis that is being evaluated, monitored, or treated as if it exists) are acceptable and can be coded in the inpatient setting, when documented at the time of discharge. Thank you, Mera Nunez [facility], CDIS Extension: [phone] Please use your independent medical judgment in providing your response. THIS QUERY IS PART OF THE PERMANENT MEDICAL RECORD Provider Response: Other Other Diagnosis: morbid obesity
--- NOTE | 2021-05-09 11:54 | MHC.CDI.CONC ---
CDI Concurrent Query Documentation Clarification: PHYSICIAN'S DOCUMENTATION REQUEST Date of Query: 05/09/21 1154 Patient Name: Jacquie Denney Admit Date: 05/07/21 Dear Doctor, A review of the medical record indicates additional documentation may be needed. Please review below and update the documentation accordingly Risk Factors/Clinical Indicators/Treatments Nutrition assessment notes 05/09 - extreme obesity III Morbid obesity BMI 40.4 5' 3 Glucerna BID If possible, please provide an associated diagnosis related to the abnormal BMI, such as: For a BMI >= 40: Overweight Obesity Due to excess calories Drug induced Due to other cause Severe or Morbid Obesity Use of terms such as suspected, likely, concern for, or probable (associated with a specific diagnosis that is being evaluated, monitored, or treated as if it exists) are acceptable and can be coded in the inpatient setting, when documented at the time of discharge. Thank you, Mera Nunez [facility], CDIS Extension: [phone] Please use your independent medical judgment in providing your response. THIS QUERY IS PART OF THE PERMANENT MEDICAL RECORD Provider Response: Other Other Diagnosis: morbid obesity
[2021-05-09] MEDS: methylPREDNISolone Sod Succ 40 MG/ML VIAL IVPUSH ×2 (12:26→21:54)
[2021-05-09] MEDS: Enoxaparin Sodium 100 MG/ML SYRINGE SUBCUT ×2 (12:26→22:01)
--- NOTE | 2021-05-09 12:46 | MHC.CM.PN ---
Addendum entered by Dorene Desouza RN 05/09/21 14:14: CLARIFICATION: ANTIC D/C IN 1-2 DAYS. Original Note: EMR REVIEWED, PT CONT'S TO BE SOB, COUGHING W/MINIMAL IMPROVEMENT, PT REMAINS ON IV ABX, IV SOLU-MEDROL AND 3L O2 (AT HOME), ANTIC D/C 1-22 DAYS. D/C PLAN: HOME W/[facility]UMP OF [facility] AND [facility], FAMILY FOR TRANSPORT
[2021-05-09 15:15] VITALS: BP 166/67; PULSE 78; RESP 16; TEMP 36.2; O2SAT 95
[2021-05-09 16:12] LABS: Glucose, Whole Blood 225 mg/dL (60-115)
[2021-05-09 16:29] LABS: Hematocrit 26.1 % (37.0-47.0); Hemoglobin 7.8 g/dl (12.0-16.0)
[2021-05-09 19:22] VITALS: BP 159/77; PULSE 70; RESP 16; TEMP 36.2; O2SAT 98
[2021-05-09 20:06] LABS: Glucose, Whole Blood 182 mg/dL (60-115)
[2021-05-09] MEDS: Montelukast Sodium 10 MG TABLET PO (21:54)
[2021-05-09] MEDS: cefTRIAXone sodium 1 GM in 0.9 % Sodium Chloride 50 ML IV (21:59)
[2021-05-09] MEDS: Insulin Glargine,Hum.rec.anlog 100 UNIT/ML 10 ML VIAL 20 UNIT SUBCUT (22:00)
[2021-05-09] MEDS: Azithromycin 500 MG in 0.9 % Sodium Chloride 250 ML 125 MG IV (22:08)
[2021-05-09 23:25] VITALS: BP 190/82; PULSE 77; RESP 20; TEMP 36.4; O2SAT 95
[2021-05-10 04:00] VITALS: BP 166/74; PULSE 60; RESP 14; TEMP 35.8; O2SAT 98
[2021-05-10] MEDS: Omeprazole 40 MG CAPSULE.DR PO (05:31)
[2021-05-10 07:15] LABS: Hematocrit 28.5 % (37.0-47.0); Hemoglobin 8.4 g/dl (12.0-16.0); Mean Corpuscular HGB Conc 29.5 g/dl (31.0-35.0); Mean Corpuscular Hemoglobin 24.4 pg (27.0-33.0); Mean Corpuscular Volume 82.8 fL (80.0-98.0); Mean Platelet Volume 10.5 fL (9.4-12.3); Platelet Count 108 X10*3/uL (160-400); Red Blood Count 3.44 X10*6/uL (4.20-5.50); Red Cell Distribution Width 21.9 % (11.0-16.0); White Blood Count 4.1 X10*3/uL (4.8-10.8)
[2021-05-10 07:28] LABS: Anion Gap 11 (12-20); Blood Urea Nitrogen 14 mg/dL (9-16); Calcium 9.2 mg/dL (8.4-10.2); Carbon Dioxide 27 mmol/L (22-29); Chloride 103 mmol/L (96-108); Creatinine Clr Calc Pharmacy 72.5; Estimated Glomerular Filt Rate > 60; Glucose Random 188 mg/dL (60-115); Potassium 5.2 mmol/L (3.3-5.1); Sodium 136 mmol/L (135-145)
[2021-05-10 07:36] VITALS: BP 195/88; PULSE 68; RESP 15; O2SAT 97
[2021-05-10 07:46] LABS: Glucose, Whole Blood 166 mg/dL (60-115)
[2021-05-10] MEDS: Valsartan 40 MG TABLET PO (08:28)
[2021-05-10] MEDS: 0.9 % Sodium Chloride Flush 3 ML SYRINGE IVFLUSH (08:28)
[2021-05-10] MEDS: Morphine Sulfate ER 30 MG TABLET.ER PO (08:28)
[2021-05-10] MEDS: Escitalopram Oxalate 20 MG TABLET PO (08:28)
[2021-05-10] MEDS: Pravastatin Sodium 40 MG TABLET PO (08:29)
[2021-05-10] MEDS: Insulin Lispro 100 UNIT/ML 3 ML VIAL SUBCUT (08:29)
[2021-05-10 11:20] LABS: Glucose, Whole Blood 122 mg/dL (60-115)
[2021-05-10] MEDS: methylPREDNISolone Sod Succ 40 MG/ML VIAL IVPUSH (11:26)
[2021-05-10] MEDS: Enoxaparin Sodium 100 MG/ML SYRINGE SUBCUT (11:26)
[2021-05-10 11:54] VITALS: BP 130/60; PULSE 84; RESP 18; TEMP 36.9; O2SAT 95
[2021-05-10 12:10] VITALS: BP 156/68
--- NOTE | 2021-05-10 13:42 | P.DS_ITS ---
DS: Providers Provider Date of Service: 05/10/21 Date of admission: 05/07/21 21:32 Primary care physician: Unknown Physician Consults: 05/09/21 07:20 Consult to Hematology / Oncology Routine Consulting Provider: Ingrid Mendoza Reason for consultation: metastatic small-cell lung cancer, anemia Has provider been notified: No DS: Diagnosis Discharge Diagnosis (1) COPD exacerbation: Status: Acute (2) Community acquired pneumonia: Status: Acute DS: Summary Hospital Course Hospital Course: Chief Complaint: SOB This is an 80-year-old female with past medical history of metastatic small-cell lung cancer recently in chemotherapy COPD, diabetes, hypertension presents to the hospital with complaints of worsening cough and shortness of breath.? Patient reports that she chronically has shortness of breath but has worsened over the past 3 days.? She has increased cough and sputum production but has difficulty bringing up the phlegm.? She has also had 1 episode of diarrhea that has now resolved.? She denies any fever or chills, no abdominal pain nausea or vomiting, no urinary symptoms and no lower extremity edema.? She denies any orthopnea or PND. ?On arrival to the ED patient hemodynamically stable with a respiratory rate of 22, satting 98% on her home O2 of 3 L Labs are significant for WBC count of 19.6, hemoglobin of 8.1 which is around her baseline, hematocrit 26.7, sodium 134, glucose of 182, COVID-19 negative Chest x-ray shows multifocal bilateral airspace opacities suspected for pneumonia Patient will be admitted for further management. hospital course 80-year-old female with metastatic lung cancer who presents to the hospital with shortness of breath, increased cough and sputum production, patient diagnosed to have community-acquired pneumonia COVID test was negative patient treated with IV ceftriaxone and azithromycin as well as IV steroids for mild COPD exacerbation patient responded well to above treatment currently doing fairly well with no fevers chills therefore being discharged home on by mouth Ceftin and azithromycin to finish a total 7 day course of antibiotics patient has been maintained on 2-3 L of oxygen that she uses at home with underlying history of chronic respiratory failure. In regard to hypertension she has been recommended to continue home medications and for lung cancer she has been recommended to follow-up with her oncologist. Patient was noted to have mild hyperkalemia likely related to [facility]BS, recommend to repeat labs in few days for diabetes mellitus recommend to continue home medication Time Spent with Patient Time attestation: Total time spent providing and/or coordinating discharge services: Discharge coordination time: Greater than 30 minutes Quality: Stroke Does the patient have a stroke diagnosis?: No Physical Exam Verdana 4l Vital Signs: Verdana 4d Verdana 4d Vital Signs: Verdana 4d Verdana 4Bd Last Vital Signs Verdana 4d Cutter Tender New 4d Cutter Tender New 4d Temp 98.4 F 05/10/21 11:54 Cutter Tender New 4d Pulse 84 05/10/21 11:54 Cutter Tender New 4d Resp 18 05/10/21 11:54 BP 156/68 H 05/10/21 12:10 Pulse Ox 95 05/10/21 11:54 Oxygen Flow Rate 3 05/07/21 16:07 BMI result Body Mass Index 40.4 Const: Other: General awake alert in no acute distress. Neck is supple no JVD. CVS regular rate rhythm, Respiratory lungs clear to auscultation, diminished breath sounds, no respiratory distressi. Gastrointestinal abdomen soft, nontender, bowel sounds audible Extremities no edema. Neuro nonfocal , speech clear. Skin no rash psych appropriate affect DS: Data Data Completed and Pending Labs on day of discharge: Laboratory Results - last 24 hr 05/09/21 05/09/21 05/09/21 16:04 16:13 20:02 WBC RBC Hgb 7.8 L Hct 26.1 L MCV MCH MCHC RDW Plt Count MPV Absolute Nucleated RBC Nucleated RBC % (auto) Sodium Potassium Chloride Carbon Dioxide Anion Gap BUN Creatinine Estim Creat Clear Calc Estimated GFR POC Glucose 225 H 182 H Random Glucose Calcium 05/10/21 05/10/21 05/10/21 06:41 06:41 07:38 WBC 4.1 L RBC 3.44 L Hgb 8.4 L Hct 28.5 L MCV 82.8 MCH 24.4 L MCHC 29.5 L RDW 21.9 H Plt Count 108 L D MPV 10.5 Absolute Nucleated RBC 0.000 Nucleated RBC % (auto) 0.0 Sodium 136 Potassium 5.2 H Chloride 103 Carbon Dioxide 27 Anion Gap 11 L BUN 14 Creatinine 0.70 Estim Creat Clear Calc 72.5 Estimated GFR > 60 POC Glucose 166 H Random Glucose 188 H Calcium 9.2 05/10/21 11:03 WBC RBC Hgb Hct MCV MCH MCHC RDW Plt Count MPV Absolute Nucleated RBC Nucleated RBC % (auto) Sodium Potassium Chloride Carbon Dioxide Anion Gap BUN Creatinine Estim Creat Clear Calc Estimated GFR POC Glucose 122 H Random Glucose Calcium Preliminary micro results at discharge 05/07/21 17:24 Blood Culture - Preliminary Blood - Venous No growth after 48 hours. 05/07/21 17:24 Blood Culture - Preliminary Blood - Venous No growth after 48 hours. Discharge Plan Discharge Patient Disposition: Home Health Service Discharge Diagnosis: community-acquired pneumonia chronic respiratory failure Referrals: Samantha HARRIS [Outside] - 1 Day (RESUMPTION OF CARE) Physician,Unknown J [Primary Care Provider] - 1 Week Discharge Medications: New azithromycin 500 mg tablet 500 mg PO DAILY Qty: 2 0RF cefuroxime axetil 500 mg tablet 500 mg PO Q12H Qty: 6 0RF Continued pravastatin 40 mg tablet 40 mg PO DAILY 0RF citalopram 20 mg tablet 40 mg PO DAILY 0RF pantoprazole 40 mg tablet,delayed release (DR/EC) 40 mg PO DAILY 0RF irbesartan 75 mg tablet 75 mg PO DAILY 0RF montelukast 10 mg tablet 1 tab PO BEDTIME 0RF oxybutynin chloride 5 mg tablet 1 tab PO TID PRN (Reason: URINARY SYMPTOMS) 0RF metformin 500 mg tablet extended release 24 hr 1,000 mg PO BID 0RF glipizide 5 mg tablet 10 mg PO BID 0RF Hold Instructions: Resume on 03/28/21. Lantus Solostar U-100 Insulin 100 unit/mL (3 mL) insulin pen 20 unit subcut BEDTIME 0RF Hold Instructions: Resume on 03/28/21. ondansetron 8 mg Tablet,Disintegrating 8 mg PO Q8H PRN (Reason: nausea) Qty: 60 3RF oxycodone 5 mg Tablet 5 mg PO Q4H PRN (Reason: Pain) Qty: 60 0RF ammonium lactate 12 % cream 1 applic topical BID 0RF Rx Instructions: apply to legs morphine [MS Contin] 30 mg tablet extended release 30 mg PO Q12H 0RF enoxaparin 100 mg/mL syringe 100 mg subcut Q12H 0RF (DME) [email or web address],knee,reg,xlrg Misc See Rx Instructions .Route Qty: 12 0RF Rx Instructions: As directed Discharge Orders: Discharge Order (Routine); Ordered 05/10/21 Ordered By: Luc Salcedo Diet: advance to usual diet and diabetic diet Activity on Discharge: As tolerated Stand Alone Forms: Patient Portal Discharge page Other Ambulatory Orders: Basic Metabolic Panel Fasting (Routine) Timeframe: [id number] Facility: [facility] - Location: Laboratory Ordered By: Luc Salcedo Care Plan Goals: pneumonia take by mouth Ceftin and azithromycin as ordered continue using home oxygen and home inhalers Health Concerns: diabetes mellitus/ lung cancer continue all home medications as before Plan of Treatment: outpatient follow-up with PCP in 1 week Assessment: as per discharge summary
--- NOTE | 2021-05-10 14:15 | MHC.CM.PN ---
PT DISCHARGING HOME W/RESUMP OF [facility] FOR HOME O2, [facility] WILL PROVIDE A [facility] FOR TRANSPORT AND [facility] WILL PROVIDE TRANSPORT AT APPROX 3:30PM.
== END 2021-05-10 15:50 | disposition home health service (06) | DRG 193 ==
LOC: HO.ED 16:32 → HO.EDOVER 21:48 → HO.S3 05-08 17:05
PROVIDERS: Internal Medicine; Admitting Provider Internal Medicine; Emergency Provider Internal Medicine; PCP Internal Medicine; Visit Provider Hospitalist
DX: J18.9 Pneumonia, unspecified organism (principal); J96.21 Acute and chronic respiratory failure with hypoxia; J44.0 Chronic obstructive pulmonary disease with (acute) lower respiratory infection; J44.1 Chronic obstructive pulmonary disease with (acute) exacerbation; C34.91 Malignant neoplasm of unspecified part of right bronchus or lung; Z68.41 Body mass index [BMI] 40.0-44.9, adult; I10 Essential (primary) hypertension; Z99.81 Dependence on supplemental oxygen; E11.9 Type 2 diabetes mellitus without complications; E66.01 Morbid (severe) obesity due to excess calories; Z20.822 Contact with and (suspected) exposure to COVID-19; Z87.891 Personal history of nicotine dependence; Z79.4 Long term (current) use of insulin; Z79.84 Long term (current) use of oral hypoglycemic drugs; Z79.899 Other long term (current) drug therapy
CPT/HCPCS: 36415; 71045; 80048; 80053; 82728; 82803; 82947; 83540; 83605; 85007; 85014; 85018; 85025; 85027; 85610; 86850; 86900; 86901; 87040; 87635; 93005; 94640; 96361; 96365; 99285; J0456; J0696; J1650; J2405; J2543; J2920; J3475

== ENCOUNTER 2021-05-16 07:05 | Day surgery (SDC) | payer MEDICARE, SELFPAY ==
[2021-05-16] VITALS (7 sets, daily range): BP systolic 115–149; BP diastolic 41–64; PULSE 70–93; RESP 16–24; TEMP 36.6–37.2; O2SAT 95–100; BMI 39.9
--- NOTE | ~2021-05-16 | IR_ITS ---
PROCEDURE: IR INSERTION OF TUNNEL CATHETER CLINICAL INFORMATION: Right lung cancer. COMPARISON: Chest x-ray 05/08/2021. TECHNIQUE: Following explaining ultrasound and fluoroscopy-guided placement of a right tunneled port placement procedure, benefits and risk, a written consent was obtained. An optimal site was selected and marked on the neck. The area around the neck was cleaned and draped in usual sterile manner with 2% chlorhexidine solution. 1% lidocaine was injected at the marked site. Under sterile ultrasound guidance a single wall needle was advanced and right jugular vein was punctured. After observing venous return a thin guidewire was placed and needle withdrawn. Over the guidewire a 5 Chinese dilator sheath was placed and anchored to the drape. Approximately one-gauze length away from the right neck incision 1% lidocaine was injected along the right anterior chest wall. A small skin incision was performed and blunt dissection was performed to create a pocket for placement of a port. A trial of placement of port was performed. Subsequently the port was anchored to the subcutaneous soft tissues with two 3-0 nonabsorbable nylon sutures. 1% lidocaine was then injected from the anterior chest wall incision to the right neck incision. A tunneler attached to the catheter which was then attached to the port was tunneled subcutaneously and pulled through the right anterior neck incision. The catheter was sized to 23 cm. The 5 Chinese dilator and the guidewire were removed. A 0.035 J-wire was advanced through the 5 Chinese sheath into the IVC under fluoroscopy and the sheath removed. A 6 Chinese dilator sheath was advanced over the guidewire and the dilator and the guidewire were removed. Precut catheter was then inserted through the 6 Chinese sheath into the SVC. The peel-away sheath was removed as the catheter was held in position. After removing the peel-away sheath a single image was obtained for documentation. The port was then flushed with saline followed by heparin. 3-0 absorbable sutures were placed and the anterior chest wall skin incision was closed subcutaneous. A russ was applied on the skin followed by simple dressing. The right anterior neck incision was closed with a single 3-0 absorbable suture. Sterile dressing applied at the neck incision postprocedure. Elements of maximal sterile barrier technique followed including use of cap, mask, sterile gown, sterile gloves, a sterile full body drape and hand hygiene. Also followed skin preparation with 2% chlorhexidine for cutaneous antisepsis, and sterile ultrasound preparation with sterile gel and probe cover when applicable. FINDINGS: On preliminary ultrasound imaging the jugular vein appears dilated with no thrombus visualized. Fluoroscopy and ultrasound-guided placement of a 23 cm long port catheter via right jugular vein. The tip of the catheter lies within the mid SVC. There were no immediate complications. IR/IR cvc insert tunnel w prt/folding machine feeder IMPRESSION: Successful ultrasound fluoroscopy-guided placement of a 23 cm long 6.6 F Port catheter with its tip in mid SVC ready for use. FLUOROSCOPY TIME: 1.5 minutes. DOSE AREA PRODUCT: 484 cGy
[2021-05-16 07:28] LABS: Glucose, Whole Blood 125 mg/dL (60-115)
[2021-05-16 07:46] LABS: Anion Gap 10 (12-20); Carbon Dioxide 26 mmol/L (22-29); Chloride 105 mmol/L (96-108); Potassium 4.4 mmol/L (3.3-5.1); Sodium 137 mmol/L (135-145)
[2021-05-16] MEDS: Lidocaine HCl 1 % 20 ML VIAL 5 ML INFILTRATI (09:37)
== END 2021-05-16 13:16 | disposition home or self-care (01) ==
PROVIDERS: Visit Provider Radiology Diagnostic Radiology
DX: Z45.2 Encounter for adjustment and management of vascular access device (principal); C34.81 Malignant neoplasm of overlapping sites of right bronchus and lung; J44.9 Chronic obstructive pulmonary disease, unspecified; I10 Essential (primary) hypertension; E11.9 Type 2 diabetes mellitus without complications; Z79.4 Long term (current) use of insulin; Z79.899 Other long term (current) drug therapy; Z87.891 Personal history of nicotine dependence
CPT/HCPCS: 36415; 36561; 76937; 80051; 82947; 99152; 99153; C1769; C1788; J0690; J1642; J2250; J3010

== ENCOUNTER 2021-06-13 11:11 | Outpatient (RCR) | payer MEDICARE, SELFPAY ==
--- NOTE | 2021-06-15 15:28 | MHC.OT.LD ---
[address] [phone] F: [phone] Occupational Therapy Lymphedema Daily Note Start Time: 1100 End Time: 1200 Visit Duration: 60 Billable Time: 60 Treatments to Date: 1 Cancellations to Date: No Shows to Date: Authorized Treatments: Insurance End Date: Subjective: Its my feet thats the problem. I can't stand or walk Pain Score: 7 Pain Location: Left foot > right Treatment: Compression Bandaging Exercise: Stretching, strengthening, manual therapy Family/Caregiver Training Referral for compression garment and instructions for donning/doffing Self Care Training: bandaging, skin care, self massage Skin Care Education Treatment Details: Tests and Measures: Bilateral hands. Feet not assessed Assessment: Pt with a complicated medical history and chronic lower extremity swelling reports a sudden onset of left leg pain and swelling . Doppler US confirmed a left leg DVT Today she presents with severe bilateral lower leg edema with significant left lower leg skin and toe nail changes . She reports she has the support of her grand daughter who lives with her for self management at home . She is agreeable to use of a velcro closure compression wrap ie Juxtafit and attending Lymphedema therapy one time a week. Pt is also with bilateral heel pain to be evaluated at the wound care center. See comment above Short Term Goals: Pt willl understand lymphedema precautions to decrease risk of infection and exacerbation of lymphedema Pt will demo consistant use of appropriate foot wear Demo indep with Juxtafit compression wrap with assist of her grand daughter as needed Demo indep with proper skin care Will perform HEP with minimal assistance to help improve lymphatic flow and venous return Construction Skills Teacher Goals: Pt and her grand daughter will be indep with proper compression wrapping for continued volume reduction and prevent re accumulation of fluid Pt with be indep with donning and doffing of compression garments and proper foot wear with AD as needed Will achieve maximum edema reduction to enable functional improvements ie fitting in standard shoes Pt and her acute care assistant/grand daughter with be indep with HEP amd lymphedema management to help prevent edema relapse and reduce risk of infection Plan of Care: See anshul D/C Today: No Treatment Plan: Electronically Signed By: Edna Galicia. OT, CHT,CLT Reviewed/agree with student documentation: N/A Therapist:
== END 2021-08-04 16:09 | disposition home or self-care (01) ==
LOC: HO.OT 11:11
PROVIDERS: PCP Internal Medicine; Visit Provider Internal Medicine
DX: I82.409 Acute embolism and thrombosis of unspecified deep veins of unspecified lower extremity (principal); R60.0 Localized edema

== ENCOUNTER 2021-06-14 08:17 | Outpatient (RCR) | payer MEDICARE, SELFPAY ==
--- NOTE | ~2021-06-14 | XR_ITS ---
EXAMINATION: XR FOOT, LEFT CLINICAL INFORMATION: Left foot pain, nonhealing wound left foot. COMPARISON: None TECHNIQUE: AP, lateral, and oblique views of the left foot. FINDINGS: There is no acute or healing fracture, dislocation, or focal destructive process. There is no focal periostitis or cortical erosive changes. No gas tracking in soft tissues. There is no focal joint narrowing or erosive change. There are small plantar and borderline posterior calcaneal spurs. XR/XR foot LT min 3V IMPRESSION: No focal bony destructive process or gas tracking in soft tissues.
== END 2021-06-27 16:53 | disposition home or self-care (01) ==
LOC: HO.WCC 08:17
PROVIDERS: PCP Internal Medicine; Visit Provider Physician Assistant
DX: E11.621 Type 2 diabetes mellitus with foot ulcer (principal); E11.622 Type 2 diabetes mellitus with other skin ulcer; L89.319 Pressure ulcer of right buttock, unspecified stage; L97.429 Non-pressure chronic ulcer of left heel and midfoot with unspecified severity; C34.90 Malignant neoplasm of unspecified part of unspecified bronchus or lung; D63.8 Anemia in other chronic diseases classified elsewhere; J43.9 Emphysema, unspecified; I82.502 Chronic embolism and thrombosis of unspecified deep veins of left lower extremity; Z79.01 Long term (current) use of anticoagulants; Z87.891 Personal history of nicotine dependence; Z79.84 Long term (current) use of oral hypoglycemic drugs; Z79.4 Long term (current) use of insulin; Z92.21 Personal history of antineoplastic chemotherapy; Z99.81 Dependence on supplemental oxygen
CPT/HCPCS: 11042; 73630; 99213

== ENCOUNTER 2021-06-15 10:45 | Outpatient (REF) | payer MEDICARE, SELFPAY ==
--- NOTE | ~2021-06-15 | CT_ITS ---
EXAMINATION: CT CHEST WITH CONTRAST CT ABDOMEN AND PELVIS WITH CONTRAST CLINICAL INFORMATION: Response to treatment. History of right lung cancer. COMPARISON: 03/25/2021 TECHNIQUE: Multidetector volumetric imaging was performed through the chest, abdomen and pelvis following the administration of 85 mL of Omnipaque 350 intravenous contrast. Sagittal and coronal reformatted images were obtained on the technologist's workstation. Axial MIP volume rendering provided. This CT examination was performed using dose optimization techniques as appropriate, variously including the following: *Automated exposure control *Adjustment of mA and/or kV according to patient size (this includes techniques or standardized protocols for targeted exams where dose is matched to indication/reason for exam; i.e. extremities or head) *Use of iterative reconstruction technique DLP: 744 mGy-cm. FINDINGS: CHEST: Lungs: The central airways are patent. There is moderate emphysema with bullous changes in both upper lobes. Subpleural reticular changes are again seen, suggestive of some degree of chronic lung disease. This is most evident at the lung bases were there is also bronchiectasis. No honeycombing. There is pleural thickening at the right apex which is decreased from previous. Mild left apical pleural thickening is similar to prior. There was pleural nodularity more inferiorly on the right which tracks along the major fissure which is essentially resolved. The pleural thickening at the apex currently has a thickness of approximately 1.1 cm as seen on series 7 image 49. This compares to 2.6 cm on prior. No pneumothorax. No pleural effusion. Mediastinum: Normal heart size. Coronary artery calcifications are present. No mediastinal lymphadenopathy. Right chest wall port terminates in the mid SVC. The visualized thyroid gland is unremarkable. Chest Wall/Axilla: No lymphadenopathy. No chest wall mass. ABDOMEN/PELVIS: Liver, Gallbladder, Biliary Tree: The liver is normal in size, shape, and attenuation. No biliary ductal dilatation. Redemonstration of multiple hepatic masses. The dominant mass is seen in the right lobe posteriorly currently measuring 3.8 cm. This is decreased from 6.7 cm on previous. The more anterior lesion now measures 1.6 cm, decreased from 3.6 cm on prior. No new liver lesion. The gallbladder is unremarkable with no evidence of radiopaque gallstones, gallbladder wall thickening, or pericholecystic inflammatory changes. Pancreas: Unremarkable. Spleen: Unremarkable. Adrenal Glands: Bilateral adrenal gland thickening. The right adrenal thickening measures 0.8 cm, compared to 1.1 cm from prior. Kidneys and Ureters: The kidneys are normal in size, shape, and attenuation. No hydronephrosis, hydroureter or calculi seen. No perinephric stranding. Bladder: Unremarkable. Gastrointestinal Tract: The stomach is unremarkable. Normal caliber small bowel. No obstruction. No colonic wall thickening or acute inflammation. No free air or free fluid. Abdominal Wall: Small fat-containing umbilical hernia. Lymphovascular Structures: Lymph nodes: Normal. Vascular: Moderate atherosclerotic calcifications. Infrarenal abdominal aortic aneurysm measures 2.8 cm in AP dimension. This is without change from previous. Pelvic Viscera: The uterus and adnexa are unremarkable. OSSEOUS STRUCTURES: No suspicious sclerotic or lytic bone lesions are identified. Degenerative changes are present throughout the spine. Chronic compression deformity of the L2 vertebral body appears to have slightly progressed from prior. There is no suspicious osseous lesion identified. CT/CT abdomen pelvis w con IMPRESSION: 1. Chronic appearing changes in the lungs. There is decreased pleural thickening in the right upper lobe when compared to prior with partial resolution of the pleural nodularity. 2. Decreasing size of multiple liver lesions with no new lesion identified. 3. Decreasing prominence of bilateral adrenal gland thickening. 4. 2.8 cm infrarenal abdominal aortic aneurysm. This is unchanged. Recommend follow-up imaging every 5 years. 5. Slight progression of an L2 vertebral body compression deformity.
[2021-06-15] MEDS: iohexoL 350 MG/ML 100 ML INFUS..BTL IV (11:39)
== END 2021-06-15 10:46 | disposition home or self-care (01) ==
LOC: HO.CT 10:45
PROVIDERS: Visit Provider Internal Medicine
DX: C34.90 Malignant neoplasm of unspecified part of unspecified bronchus or lung (principal)
CPT/HCPCS: 71260; 74177; Q9967

== ENCOUNTER 2021-06-24 12:43 | Inpatient (IN) | payer MEDICARE, SELFPAY ==
[2021-06-24] VITALS (12 sets, daily range): BP systolic 124–133; BP diastolic 42–56; PULSE 79–95; RESP 18–28; TEMP 36.5–37.9; O2SAT 71–96; BMI 36.9
--- NOTE | ~2021-06-24 | XR_ITS ---
EXAMINATION: XR CHEST CLINICAL INFORMATION: SOB, history of COPD COMPARISON: None TECHNIQUE: Frontal view of the chest was obtained. FINDINGS: The lungs are moderately expanded with patchy opacity seen in left midlung, left lower lobe and right parahilar region likely developing infiltrate in the left midlung region. It is new since the 12/27/2021 CT chest. Heart size and progress clarities normal. There is a right central venous port in place. No gross bony abnormality. XR/XR chest 1V IMPRESSION: New airspace opacity left midlung and left lower lobe suggestive of infiltrate, new since the previous CT chest 06/15/2021. Right parahilar patchy opacity is unchanged to previous CT chest.
--- NOTE | ~2021-06-24 | CT_ITS ---
EXAMINATION: CT ANGIOGRAM OF THE CHEST WITH AND WITHOUT CONTRAST (CT PULMONARY ANGIOGRAM FOR PE) CLINICAL INFORMATION: Reason for Exam lung CA, r/o PE COMPARISON: Previous chest CT most recent 06/15/2021 TECHNIQUE: Prior to contrast administration, noncontrast localization images were obtained. Subsequently, multidetector volumetric imaging was performed from the thoracic inlet to below the diaphragms following the administration of 65 mL Omnipaque 350 intravenous contrast. No contrast reaction reported Sagittal, coronal, and MIP oblique sagittal reformatted images were obtained on the CT workstation, uploaded to PACS, and reviewed. This CT examination was performed using dose optimization techniques as appropriate, variously including the following: *Automated exposure control *Adjustment of mA and/or kV according to patient size (this includes techniques or standardized protocols for targeted exams where dose is matched to indication/reason for exam; i.e. extremities or head) *Use of iterative reconstruction technique Total exam dose-length product 441 mGy-cm FINDINGS: QUALITY OF STUDY/CONTRAST BOLUS: Satisfactory. PULMONARY ARTERIES: No central or segmental pulmonary emboli. THORACIC AORTA: No aneurysm or dissection. LUNG: There is evidence of severe emphysema. There is interval increase in diffuse groundglass attenuation seen in both throughout the left upper lobe, in the right upper lobe sparing the anterior segment where there is significant cystic or bullous changes and patchy areas of involvement in both lower lobes. There also appear to be increased interstitial markings or crazy paving pattern. This is new or increased from 06/14/2020 exam. Differential would include atypical pneumonia including viral pneumonia including Covid infection, drug toxicity, hypersensitivity pneumonitis, aspiration, pulmonary edema and collagen vascular disease. There is minimal right pleural thickening along the right upper lobe. There is a small pleural nodule adjacent to the right major fissure that is unchanged.. PLEURA: Pleural thickening adjacent to the right upper lobe and nodular pleural thickening adjacent to the right lower lobe, inferior largest pleural based nodule measures 8 mm. This is similar to exam from earlier this month. No pleural effusion. MEDIASTINUM: The heart is enlarged. There is no pericardial effusion.. No evidence of septal bowing or right heart strain. There is diffuse mediastinal and bilateral hilar lymphadenopathy. This is similar to exam from earlier this month as well. CHEST WALL/AXILLA: No axillary or internal mammary lymphadenopathy. There is a right jugular port with tip projecting over the SVC. OSSEOUS STRUCTURES: There are degenerative changes of the spine. There is question of a compression fracture involving the inferior endplate of the L2 vertebral body. This is not completely visualized but may be unchanged from 06/15/2021 CT scan of the abdomen.. UPPER ABDOMEN: Unremarkable. No reflux of contrast into the hepatic veins to suggest elevated right heart pressures. CT/CT angio chest PE protocol IMPRESSION: No evidence of pulmonary embolism. Severe emphysema. Diffuse groundglass attenuation and increased interstitial markings or crazy paving pattern. This is greatest in the left upper lobe. Differential would include an atypical viral pneumonia, drug toxicity, aspiration, hypersensitivity pneumonitis, pulmonary edema and collagen vascular disease. Stable pleural thickening adjacent to the right upper lobe and nodularity adjacent to the right lower lobe. Enlarged heart. Stable mediastinal and hilar lymphadenopathy. Question inferior endplate L2 compression fracture. This is not completely visualized. VTE: negative
--- NOTE | 2021-06-24 13:03 | ECG_ITS ---
Test Reason : sob Blood Pressure : / mmHG Vent. Rate : 089 BPM Atrial Rate : 089 BPM P-R Int : 210 ms QRS Dur : 094 ms QT Int : 364 ms P-R-T Axes : 071 -05 013 degrees QTc Int : 442 ms Sinus rhythm with 1st degree A-V block Possible Anterior infarct , age undetermined Abnormal ECG When compared with ECG of 07-MAY-2021 23:03, No significant change was found Referred By: Bonnie Ambriz Electronically Signed By:PATRICE ROD
--- NOTE | 2021-06-24 13:05 | ED.GENADULT ---
HPI - General Adult General Chief complaint: Dyspnea Stated complaint: leg swelling Time Seen by Provider: 06/24/21 12:55 Source: patient and EMS Mode of arrival: EMS Limitations: no limitations History of Present Illness HPI narrative: Patient comes emergency room complaining of shortness of breath patient is known to have small cell lung cancer, undergoing chemotherapy, history of COPD, diabetes and hypertension. Patient states that this morning her shortness of breath got much worse. Patient also complaining of redness in her lower extremities which has been getting worse throughout the last 3 weeks. Patient also complaining of painful sores in her feet. Patient denies chest pain Related Data Home Medications Medication Instructions Recorded Confirmed citalopram 20 mg tablet 40 mg PO DAILY 02/28/21 06/06/21 glipizide 5 mg tablet 10 mg PO BID 02/28/21 06/06/21 insulin glargine 100 unit/mL (3 20 unit SUBCUT BEDTIME 02/28/21 06/06/21 mL) subcutaneous pen (Lantus Solostar U-100 Insulin) irbesartan 75 mg tablet 75 mg PO DAILY 02/28/21 06/06/21 metformin 500 mg tablet,extended 1,000 mg PO BID 02/28/21 06/06/21 release 24 hr montelukast 10 mg tablet 1 tab PO BEDTIME 02/28/21 06/06/21 oxybutynin chloride 5 mg tablet 1 tab PO TID PRN 02/28/21 06/06/21 pantoprazole 40 mg tablet,delayed 40 mg PO DAILY 02/28/21 06/06/21 release pravastatin 40 mg tablet 40 mg PO DAILY 02/28/21 06/06/21 ammonium lactate 12 % topical cream 1 applic TOPICAL BID 05/07/21 06/06/21 Previous Rx's Medication Instructions Recorded ondansetron 8 mg disintegrating 8 mg PO Q8H PRN #60 tab 03/15/21 tablet eli.stocking,knee,reg,xlrg #12 ea 03/28/21 enoxaparin 100 mg/mL subcutaneous 100 mg SUBCUT Q12H #60 ml 05/31/21 syringe morphine 30 mg tablet,extended 30 mg PO Q12H #60 tab 06/06/21 release (MS Contin) oxycodone 5 mg tablet 5 mg PO Q4H PRN #60 tab 06/06/21 loperamide 2 mg capsule (Imodium 2 mg PO Q6H PRN #60 cap 06/23/21 A-D) Allergies Allergy/AdvReac Type Severity Reaction Status Date / Time No Known Drug Allergies Allergy Unknown Verified 05/23/21 10:54 [facility] Past Medical History Medical History COPD (chronic obstructive pulmonary disease) Diabetes mellitus, type 2 Hypertension Surgical History History of section Family History Family History Mother Breast cancer Diabetes HTN (hypertension) Father Lung cancer Social History Social History Household Members: Other Housing: House Do you presently have visiting nurse or other home services: No Alcohol intake: never Patient Tobacco Use Status: Former Tobacco user Tobacco use type: Cigarette Second Hand Smoke Exposure: No Use of substances other than those prescribed or required for medical reasons: No Advance Directives: Yes Advance Directives Information Provided: Yes Advance Directives on File: No Advance Directives Date on File: 03/28/21 service: No Current occupational status: retired Physical Exam ED Vital Signs: Vital Signs - 24 hr 06/24/21 13:06 06/24/21 13:25 06/24/21 13:29 Temperature 100.2 F Pulse Rate 90 79 Respiratory Rate 25 H 27 H 27 H Blood Pressure 131/48 L Pulse Oximetry 76 L 06/24/21 15:41 06/24/21 16:57 06/24/21 17:29 Temperature 97.7 F Pulse Rate 91 89 Respiratory Rate 28 H 18 Blood Pressure 132/42 L 133/47 L Pulse Oximetry 93 92 71 L BMI result Body Mass Index 36.9 Course Course Course Narrative: When patient arrived, patient was empirically treated with azithromycin and ceftriaxone for possible pneumonia. Patient had no fever, normal blood pressure, sepsis not suspected. Questionable if patient had CHF. Patient had no wheezing, bilateral crackles. Patient's oxygen saturation dropped to 78% on 8 L of oxygen. Patient had to be placed on BiPAP, oxygen saturation in the high 90s on BiPAP, tolerating well. Chest x-ray shows possible pneumonia. At this time, 15:04, patient will be giving IV fluids based on ideal body weight of 54 kg. Blood pressure is still in the 130s. D-dimer pending. CT scan is negative for PE. Patient was weaned down from BiPAP to 8 L of nasal cannula, however patient's oxygen saturation kept dropping to 87% with minimal exertion including talking. Patient was switched to high-flow nasal cannula. Patient's oxygen saturation 93%. Code status was discussed with the patient, patient states that she is a DNR DNI Medical Decision Making Lab Data Result diagrams: 06/24/21 14:22 06/24/21 14: Labs: Lab Results 06/24/21 06/24/21 06/24/21 Range/Units 14: 14: 14:22 WBC 12.1 H (4.8-10.8) X10*3/uL RBC 3.44 L (4.20-5.50) X10*6/uL Hgb 9.2 L (12.0-16.0) g/dl Hct 30.5 L (37.0-47.0) % MCV 88.7 (80.0-98.0) fL MCH 26.7 L (27.0-33.0) pg MCHC 30.2 L (31.0-35.0) g/dl RDW 23.6 H (11.0-16.0) % Plt Count 223 (160-400) X10*3/uL MPV 8.7 L (9.4-12.3) fL Immature Gran % (Auto) 0.6 H (0.0-0.4) % Neut % (Auto) 68.0 (45-73) % Lymph % (Auto) 23.5 (20-40) % [place] % (Auto) 6.3 (2-11) % Eos % (Auto) 1.2 (0-4) % Baso % (Auto) 0.4 (0-2) % Lymph # (Auto) 2.8 (1.2-4.9) X10*3/uL [place] # (Auto) 0.8 (0.1-1.2) X10*3/uL Eos # (Auto) 0.2 (0.0-0.4) X10*3/uL Baso # (Auto) 0.1 (0.0-0.2) X10*3/uL Abs Immat Gran (auto) 0.07 H (0.00-0.03) X10*3/uL Absolute Neuts (auto) 8.2 (2.0-8.3) x10*3/uL Absolute Nucleated RBC 0.000 (0.0-0.012) X10*3/uL Nucleated RBC % (auto) 0.0 (0.0-0.2) /100WBC PT 13.5 H (9.9-13.0) SEC INR 1.2 H (0.9-1.1) D-Dimer High Sensitivty 652 NG/ML Sodium 131 L (135-145) mmol/L Potassium 4.6 (3.3-5.1) mmol/L Chloride 103 (96-108) mmol/L Carbon Dioxide 19 L (22-29) mmol/L Anion Gap 14 (12-20) BUN 17 H (9-16) mg/dL Creatinine 0.74 (0.5-1.4) mg/dL Estim Creat Clear Calc 66.5 Estimated GFR > 60 Random Glucose 95 (60-115) mg/dL Lactic Acid (0.5-2.0) mmol/L Calcium 8.9 (8.4-10.2) mg/dL Total Bilirubin 0.4 (0.0-1.0) mg/dL Direct Bilirubin 0.2 (0.0-0.5) mg/dL AST 20 D (5-31) U/L ALT 9 (0-31) U/L Alkaline Phosphatase 66 D (39-117) U/L Troponin I High Sens (<3.5-17.0) ng/L B-Natriuretic Peptide (<100) pg/mL Total Protein 6.2 L (6.5-8.0) g/dL Albumin 3.1 L (3.5-5.0) g/dL COVID-19 (THEA) (Negative) COVID-19 Clin Com 06/24/21 06/24/21 06/24/21 Range/Units 14:22 14:22 14:22 WBC (4.8-10.8) X10*3/uL RBC (4.20-5.50) X10*6/uL Hgb (12.0-16.0) g/dl Hct (37.0-47.0) % MCV (80.0-98.0) fL MCH (27.0-33.0) pg MCHC (31.0-35.0) g/dl RDW (11.0-16.0) % Plt Count (160-400) X10*3/uL MPV (9.4-12.3) fL Immature Gran % (Auto) (0.0-0.4) % Neut % (Auto) (45-73) % Lymph % (Auto) (20-40) % [place] % (Auto) (2-11) % Eos % (Auto) (0-4) % Baso % (Auto) (0-2) % Lymph # (Auto) (1.2-4.9) X10*3/uL [place] # (Auto) (0.1-1.2) X10*3/uL Eos # (Auto) (0.0-0.4) X10*3/uL Baso # (Auto) (0.0-0.2) X10*3/uL Abs Immat Gran (auto) (0.00-0.03) X10*3/uL Absolute Neuts (auto) (2.0-8.3) x10*3/uL Absolute Nucleated RBC (0.0-0.012) X10*3/uL Nucleated RBC % (auto) (0.0-0.2) /100WBC PT (9.9-13.0) SEC INR (0.9-1.1) D-Dimer High Sensitivty NG/ML Sodium (135-145) mmol/L Potassium (3.3-5.1) mmol/L Chloride (96-108) mmol/L Carbon Dioxide (22-29) mmol/L Anion Gap (12-20) BUN (9-16) mg/dL Creatinine (0.5-1.4) mg/dL Estim Creat Clear Calc Estimated GFR Random Glucose (60-115) mg/dL Lactic Acid 0.7 (0.5-2.0) mmol/L Calcium (8.4-10.2) mg/dL Total Bilirubin (0.0-1.0) mg/dL Direct Bilirubin (0.0-0.5) mg/dL AST (5-31) U/L ALT (0-31) U/L Alkaline Phosphatase (39-117) U/L Troponin I High Sens 16.1 D (<3.5-17.0) ng/L B-Natriuretic Peptide 94 (<100) pg/mL Total Protein (6.5-8.0) g/dL Albumin (3.5-5.0) g/dL COVID-19 (THEA) Negative (Negative) COVID-19 Clin Com See Note Imaging Data CTA for PE: Radiologist's impression: FINDINGS: QUALITY OF STUDY/CONTRAST BOLUS: Satisfactory. PULMONARY ARTERIES: No central or segmental pulmonary emboli.? THORACIC AORTA: No aneurysm or dissection. LUNG: There is evidence of severe emphysema. There is interval increase in diffuse groundglass attenuation seen in both throughout the left upper lobe, in the right upper lobe sparing the anterior segment where there is significant cystic or bullous changes and patchy areas of involvement in both lower lobes. There also appear to be increased interstitial markings or crazy paving pattern. This is new or increased from 06/14/2020 exam. Differential would include atypical pneumonia including viral pneumonia including Covid infection, drug toxicity, hypersensitivity pneumonitis, aspiration, pulmonary edema and collagen vascular disease. There is minimal right pleural thickening along the right upper lobe. There is a small pleural nodule adjacent to the right major fissure that is unchanged.. PLEURA: Pleural thickening adjacent to the right upper lobe and nodular pleural thickening adjacent to the right lower lobe, inferior largest pleural based nodule measures 8 mm. This is similar to exam from earlier this month. No pleural effusion. MEDIASTINUM: The heart is enlarged. There is no pericardial effusion.. No evidence of septal bowing or right heart strain. There is diffuse mediastinal and bilateral hilar lymphadenopathy. This is similar to exam from earlier this month as well. CHEST WALL/AXILLA: No axillary or internal mammary lymphadenopathy. There is a right jugular port with tip projecting over the SVC. OSSEOUS STRUCTURES: There are degenerative changes of the spine. There is question of a compression fracture involving the inferior endplate of the L2 vertebral body. This is not completely visualized but may be unchanged from 06/15/2021 CT scan of the abdomen.. UPPER ABDOMEN: Unremarkable.? No reflux of contrast into the hepatic veins to suggest elevated right heart pressures. CT/CT angio chest PE protocol IMPRESSION: No evidence of pulmonary embolism. Severe emphysema. Diffuse groundglass attenuation and increased interstitial markings or crazy paving pattern. This is greatest in the left upper lobe. Differential would include an atypical viral pneumonia, drug toxicity, aspiration, hypersensitivity pneumonitis, pulmonary edema and collagen vascular disease. Stable pleural thickening adjacent to the right upper lobe and nodularity adjacent to the right lower lobe. Enlarged heart. Stable mediastinal and hilar lymphadenopathy. Question inferior endplate L2 compression fracture. This is not completely visualized. ? VTE: negative Critical Care Time Critical Care Time Critical Care Time: Yes Total Critical Care Time: 60 Attestation: I have personally provided critical care time. Time includes review of lab data, radiology results, discussion with consultants, and monitoring for potential decompensation. Intervention performed as documented. Discharge Plan Discharge Clinical Impression: Pneumonia, Respiratory failure Patient Disposition: Admitted As Inpatient
[2021-06-24] MEDS: Albuterol/Iprat 2.5/0.5MG 3 ML AMPUL.NEB INHALE ×2 (13:24→19:27)
[2021-06-24 14:26] LABS: MANUAL DIFF FLAG NO
[2021-06-24 14:33] LABS: Basophils Absolute Auto 0.1 X10*3/uL (0.0-0.2); Basophils Percent Auto 0.4 % (0-2); Eosinophils Absolute Auto 0.2 X10*3/uL (0.0-0.4); Eosinophils Percent Auto 1.2 % (0-4); Hematocrit 30.5 % (37.0-47.0); Hemoglobin 9.2 g/dl (12.0-16.0); Imm Gran Abs Auto 0.07 X10*3/uL (0.00-0.03); Imm Gran Pct Auto 0.6 % (0.0-0.4); Lymphocytes Absolute Auto 2.8 X10*3/uL (1.2-4.9); Lymphocytes Percent Auto 23.5 % (20-40); Mean Corpuscular HGB Conc 30.2 g/dl (31.0-35.0); Mean Corpuscular Hemoglobin 26.7 pg (27.0-33.0); Mean Corpuscular Volume 88.7 fL (80.0-98.0); Mean Platelet Volume 8.7 fL (9.4-12.3); Monocytes Absolute Auto 0.8 X10*3/uL (0.1-1.2); Monocytes Percent Auto 6.3 % (2-11); Neutrophils Absolute Auto 8.2 x10*3/uL (2.0-8.3); Platelet Count 223 X10*3/uL (160-400); Red Blood Count 3.44 X10*6/uL (4.20-5.50); Red Cell Distribution Width 23.6 % (11.0-16.0); White Blood Count 12.1 X10*3/uL (4.8-10.8)
[2021-06-24 14:39] LABS: Lactic Acid 0.7 mmol/L (0.5-2.0)
[2021-06-24 14:40] LABS: INTERNATIONAL NORM RATIO 1.2 (0.9-1.1); Prothrombin Time 13.5 SEC (9.9-13.0)
--- NOTE | 2021-06-24 14:45 | PC.NURSE ---
delay in blood cultures. staff unable to locate butterfly needles and patient has small veins.
[2021-06-24 14:49] LABS: Alanine Aminotransferase 9 U/L (0-31); Albumin Level 3.1 g/dL (3.5-5.0); Alkaline Phosphatase 66 U/L (39-117); Anion Gap 14 (12-20); Aspartate Amino Transferase 20 U/L (5-31); Bilirubin Direct 0.2 mg/dL (0.0-0.5); Bilirubin Total 0.4 mg/dL (0.0-1.0); Blood Urea Nitrogen 17 mg/dL (9-16); Calcium 8.9 mg/dL (8.4-10.2); Carbon Dioxide 19 mmol/L (22-29); Chloride 103 mmol/L (96-108); Creatinine Clr Calc Pharmacy 66.5; Estimated Glomerular Filt Rate > 60; Glucose Random 95 mg/dL (60-115); Potassium 4.6 mmol/L (3.3-5.1); Sodium 131 mmol/L (135-145); Total Protein 6.2 g/dL (6.5-8.0)
[2021-06-24] MEDS: methylPREDNISolone Sod Succ 125 MG/2 ML VIAL IVPUSH (14:51)
[2021-06-24 14:52] LABS: B Type Natriuretic Peptide 94 pg/mL (<100); Troponin-I High Sensitivity 16.1 ng/L (<3.5-17.0)
[2021-06-24 14:54] LABS: COVID-19 Test Negative (Negative)
[2021-06-24 15:21] LABS: D Dimer High Sensitivity 652 NG/ML
[2021-06-24] MEDS: cefTRIAXone sodium 1 GM in 0.9 % Sodium Chloride 50 ML IV (15:36)
[2021-06-24] MEDS: 0.9 % Sodium Chloride 2,000 ML 999 ML IVCONT (15:41)
--- NOTE | 2021-06-24 15:50 | PC.NURSE ---
in CT. trial on NC.
[2021-06-24] MEDS: iohexoL 350 MG/ML 100 ML INFUS..BTL IV (16:06)
[2021-06-24] MEDS: Azithromycin 500 MG in 0.9 % Sodium Chloride 250 ML 125 MG IV (16:56)
--- NOTE | 2021-06-24 16:58 | PC.NURSE ---
reports feeling better overall.
--- NOTE | 2021-06-24 17:30 | PC.NURSE ---
pt desats to 71 while being taken off bedpan and linens changed. no AMS. recovering at 90degrees up to 86% now. awaits high flow LA.
--- NOTE | 2021-06-24 18:16 | PHA.MEDREC ---
Pharmacy Consult ? Medication Reconciliation Pharmacy has completed the medication reconciliation. Metformin 500 mg er decreased to 1 tab bid and glipizide 5 mg stopped per pcp
--- NOTE | 2021-06-24 18:23 | PC.NURSE ---
pt resting queitly w/o SOB on high flow at 60% FiO2. nsr on monitor. awaits admission.
--- NOTE | 2021-06-24 18:27 | P.HPHOSP_ITS ---
History of Present Illness Date of Service: 06/24/21 Attending physician on admission: Nestor Mays Chief Complaint: Weakness, shortness of breath This is an 81-year-old female with history of metastatic lung cancer, COPD, respiratory failure on 2 L of home O2 sent to the emergency department by [facility] due to increasing shortness of breath. Patient states that yesterday she was not feeling well and had decreased appetite. Today she reports increasing shortness of breath. She denies any associated fever, chills, cough. No recent sick contacts on arrival in the emergency department she was significantly hypoxic with oxygen saturation in the mid 70s on 8 L. She was briefly placed on BiPAP but able to be weaned back down to 8 L. Unfortunately she continued to desaturate and was therefore placed on high-flow oxygen. CTA was done which did not show any evidence of PE. It showed broad differential including infectious versus inflammatory on verses edema. She was treated with IV antibiotics, steroids, and breathing treatments. Patient reports Moderna vaccination x3. Due to severe hypoxia patient will be admitted to the hospital for further management. Review of Systems Constitutional: Constitutional: Denies chills and Denies fever(s) Cardiovascular: Cardiovascular: Reports dyspnea Respiratory: Respiratory: Denies cough and Reports dyspnea Gastrointestinal: Gastrointestinal: Reports diarrhea, Denies nausea and Denies vomiting [facility] Medical History (Updated 06/24/21 @ 18:30 by CAIO Narvaez) COPD (chronic obstructive pulmonary disease) Deep vein thrombosis of lower extremity Diabetes mellitus, type 2 Hypertension Lung cancer Small cell lung cancer Functional capacity: uses cane/walker Family History Mother Breast cancer Diabetes HTN (hypertension) Father Lung cancer Surgical History History of section Social History Household Members: Other Housing: House Do you presently have visiting nurse or other home services: No Alcohol intake: never Patient Tobacco Use Status: Former Tobacco user Tobacco use type: Cigarette Second Hand Smoke Exposure: No Use of substances other than those prescribed or required for medical reasons: No Advance Directives: Yes Advance Directives Information Provided: Yes Advance Directives on File: No Advance Directives Date on File: 03/28/21 service: No Current occupational status: retired Meds Allergies Allergy/AdvReac Type Severity Reaction Status Date / Time No Known Drug Allergies Allergy Unknown Verified 05/23/21 10:54 Active Medications: Current Medications Acetaminophen (Acetaminophen 325 Mg Tablet) 650 mg PO Q6H PRN PRN Reason: Pain, Mild (Pain Scale 1-3) Albuterol Sulfate (Albuterol Sulfate (0.083%) 2.5 Mg/3 Ml Vial.Neb) 2.5 mg INHALE RQ4H PRN PRN Reason: shortness of breath Albuterol/Ipratropium (Albuterol/Iprat 2.5/0.5mg 3 Ml Ampul.Neb) 3 ml INHALE RQ6H WHILE AWAKE [facility] Dextrose (Dextrose 50 % 25 Gm/50 Ml Vial) 25 gm IVPUSH Q15M PRN; Protocol PRN Reason: per Hypoglycemia Standing Ord. Docusate Sodium (Docusate Sodium 100 Mg Capsule) 100 mg PO DAILY PRN PRN Reason: Constipation Enoxaparin Sodium (Enoxaparin Sodium 100 Mg/Ml Syringe) 100 mg SUBCUT Q12H [facility] Glucose (Glucose Gel 15 Gm Gel..Gram.) 15 gm PO Q15M PRN; Protocol PRN Reason: per Hypoglycemia Standing Ord. Ceftriaxone Sodium 1 gm/ (Sodium Chloride) 50 mls @ 100 mls/hr IV Q24H [facility] Insulin Glargine (Insulin Glargine,Hum.Rec.Anlog 100 Unit/Ml 10 Ml Vial) 20 unit SUBCUT BEDTIME [facility] Insulin Human Lispro (Insulin Lispro 100 Unit/Ml 3 Ml Vial) 0 unit SUBCUT QIDACHS [place]; Protocol Lactic Acid (Ammonium Lactate 12 % Cream 140 Gm Tube) 1 appl TOPICAL BID [place]; Protocol Loperamide HCl (Loperamide Hcl 2 Mg Capsule) 2 mg PO Q6H PRN PRN Reason: Diarrhea Methylprednisolone Sodium Succinate (Methylprednisolone Sod Succ 40 Mg/Ml Vial) 40 mg IVPUSH Q8H [facility] Montelukast Sodium (Montelukast Sodium 10 Mg Tablet) 10 mg PO BEDTIME [facility] Morphine Sulfate (Morphine Sulfate Er 30 Mg Tablet.Er) 30 mg PO Q12H [facility] Non-Formulary Medication (Ipratropium-Albuterol [Combivent Respimat]) 1 puff INHALE QID [facility] Non-Formulary Medication (Citalopram) 40 mg PO DAILY [facility] Non-Formulary Medication (Irbesartan) 75 mg PO DAILY [facility] Non-Formulary Medication (Pantoprazole) 40 mg PO DAILY [facility] Ondansetron HCl (Ondansetron Hcl 4 Mg/2 Ml Vial) 4 mg IVPUSH Q8H PRN PRN Reason: Nausea and Vomiting Pharmacy Consult (Consult Rx Perform Med Rec) 1 each MISCELLANE ONCE PRN PRN Reason: Consult order Pravastatin Sodium (Pravastatin Sodium 40 Mg Tablet) 40 mg PO BEDTIME [facility] Sodium Chloride (0.9 % Sodium Chloride Flush 3 Ml Syringe) 3 ml IVFLUSH QSHIFT [facility] Home Medications Medication Instructions Recorded Confirmed Last Taken Type citalopram 20 mg tablet 40 mg PO DAILY 02/28/21 06/24/21 06/24/21 History insulin glargine 100 unit/mL (3 20 unit SUBCUT BEDTIME 02/28/21 06/24/21 06/23/21 History mL) subcutaneous pen (Lantus Solostar U-100 Insulin) irbesartan 75 mg tablet 75 mg PO DAILY 02/28/21 06/24/21 06/24/21 History metformin 500 mg tablet,extended 500 mg PO BID 02/28/21 06/24/21 06/24/21 History release 24 hr montelukast 10 mg tablet 1 tab PO BEDTIME 02/28/21 06/24/21 06/23/21 History oxybutynin chloride 5 mg tablet 1 tab PO TID PRN 02/28/21 06/24/21 06/24/21 History pantoprazole 40 mg tablet,delayed 40 mg PO DAILY 02/28/21 06/24/21 06/24/21 History release pravastatin 40 mg tablet 40 mg PO BEDTIME 02/28/21 06/24/21 06/23/21 History ammonium lactate 12 % topical cream 1 applic TOPICAL BID 05/07/21 06/24/21 06/24/21 History glycopyrrolate 9 mcg-formoterol 2 puff INHALATION BID 06/24/21 06/24/21 06/24/21 History 4.8 mcg HFA aerosol inhaler (Bevespi Aerosphere) ipratropium 20 mcg-albuterol 100 1 puff INHALATION QID 06/24/21 06/24/21 06/24/21 History mcg/actuation mist for inhalation (Combivent Respimat) meclizine 25 mg tablet 1 - 2 tab PO Q6-8H PRN 06/24/21 06/24/21 Unknown History sulfamethoxazole 800 1 tab PO BID 06/24/21 06/24/21 06/24/21 History mg-trimethoprim 160 mg tablet Physical Exam Vital Signs and Narrative: Vital Signs: Last Vital Signs Temp 98.6 F 06/24/21 18:22 Pulse 84 06/24/21 18:22 Resp 18 06/24/21 18:22 BP 133/51 L 06/24/21 18:22 Pulse Ox 96 06/24/21 18:22 Oxygen Flow Rate 8 06/24/21 13:06 BMI result Body Mass Index 36.9 Const: General: cooperative, alert and awake Nutritional Appearance: overweight Orientation/consciousness: patient oriented x3 Resp: Other: expiratory rhonchi Effort & Inspection: no cough and tachypneic Cardio: Rate: regular rate Heart sounds: S1 normal heart sound present and S2 normal heart sound present GI: Inspection: No Abdominal wall edema Palpation (GI): Soft to palpation and nontender Skin: Other: Neuro: General: patient oriented x3 Extrem: Other: b/l leg edema Results Labs CBC and Chem 7: 06/24/21 14:22 06/24/21 14:22 Labs: Laboratory Results - last 24 hr 06/24/21 06/24/21 06/24/21 14:22 14:22 14:22 MCV 88.7 MCH 26.7 L MCHC 30.2 L RDW 23.6 H Plt Count 223 MPV 8.7 L Immature Gran % (Auto) 0.6 H Neut % (Auto) 68.0 Lymph % (Auto) 23.5 [place] % (Auto) 6.3 Eos % (Auto) 1.2 Baso % (Auto) 0.4 Lymph # (Auto) 2.8 [place] # (Auto) 0.8 Eos # (Auto) 0.2 Baso # (Auto) 0.1 Abs Immat Gran (auto) 0.07 H Absolute Neuts (auto) 8.2 Absolute Nucleated RBC 0.000 Nucleated RBC % (auto) 0.0 PT 13.5 H INR 1.2 H D-Dimer High Sensitivty 652 Anion Gap 14 Estim Creat Clear Calc 66.5 Estimated GFR > 60 Random Glucose 95 Lactic Acid Calcium 8.9 Total Bilirubin 0.4 Direct Bilirubin 0.2 AST 20 D ALT 9 Alkaline Phosphatase 66 D B-Natriuretic Peptide Total Protein 6.2 L Albumin 3.1 L COVID-19 (THEA) COVID-19 Clin Com 06/24/21 06/24/21 06/24/21 14:22 14:22 14:22 MCV MCH MCHC RDW Plt Count MPV Immature Gran % (Auto) Neut % (Auto) Lymph % (Auto) [place] % (Auto) Eos % (Auto) Baso % (Auto) Lymph # (Auto) [place] # (Auto) Eos # (Auto) Baso # (Auto) Abs Immat Gran (auto) Absolute Neuts (auto) Absolute Nucleated RBC Nucleated RBC % (auto) PT INR D-Dimer High Sensitivty Anion Gap Estim Creat Clear Calc Estimated GFR Random Glucose Lactic Acid 0.7 Calcium Total Bilirubin Direct Bilirubin AST ALT Alkaline Phosphatase B-Natriuretic Peptide 94 Total Protein Albumin COVID-19 (THEA) Negative COVID-19 Clin Com See Note Imaging Radiologist's Impressions: Impressions Chest X-Ray 06/24/21 13:15 IMPRESSION: New airspace opacity left midlung and left lower lobe suggestive of infiltrate, new since the previous CT chest 06/15/2021. Right parahilar patchy opacity is unchanged to previous CT chest. Chest CTA 06/24/21 16:13 IMPRESSION: No evidence of pulmonary embolism. Severe emphysema. Diffuse groundglass attenuation and increased interstitial markings or crazy paving pattern. This is greatest in the left upper lobe. Differential would include an atypical viral pneumonia, drug toxicity, aspiration, hypersensitivity pneumonitis, pulmonary edema and collagen vascular disease. Stable pleural thickening adjacent to the right upper lobe and nodularity adjacent to the right lower lobe. Enlarged heart. Stable mediastinal and hilar lymphadenopathy. Question inferior endplate L2 compression fracture. This is not completely visualized. VTE: negative Assessment and Plan (1) Respiratory failure: Status: Acute Plan This is an 81-year-old female with history of COPD, chronic respiratory failure on 2 L of home oxygen, metastatic lung cancer currently undergoing chemotherapy, diabetes, hypertension, chronic lower extremity leg wounds followed by the wound clinic brought to the emergency department for shortness of breath found to have respiratory failure Acute on chronic respiratory failure with hypoxia Broad differential at this point including inflammatory versus infectious versus chemo related fibrosis versus COPD Less likely CHF given low BNP -IV Solu-Medrol -IV ceftriaxone -scheduled and p.r.n. breathing treatments -pulmonology consult -continue high-flow oxygen as needed, wean as tolerated Chronic Lower extremity DVT Continue therapeutic Lovenox Diabetes Hold metformin SSI, pocs Chronic pain Continue home medications Hyperlipidemia Continue statin Hypertension Arb non formulary convert to formulary equivalent DVT prophylaxis-therapeutic Lovenox Code status DNR/DNI Healthcare proxy-son Attending physician Given multiple comorbidities, cancer undergoing chemotherapy, severity hypoxia will likely require 2 midnights in the hospital for workup and management of acute respiratory failure Quality Stroke Does the patient have a stroke diagnosis?: No VTE Prior VTE?: No VTE Risk Level:: Medical - moderate - high VTE Device Contraindication: Treatment Not Indicated VTE Drug Contraindication: N/A - Med Ordered
[2021-06-24 20:14] LABS: Hematocrit 28.7 % (37.0-47.0); Hemoglobin 8.7 g/dl (12.0-16.0); Mean Corpuscular HGB Conc 30.3 g/dl (31.0-35.0); Mean Corpuscular Hemoglobin 26.9 pg (27.0-33.0); Mean Corpuscular Volume 88.6 fL (80.0-98.0); Mean Platelet Volume 8.9 fL (9.4-12.3); Platelet Count 223 X10*3/uL (160-400); Red Blood Count 3.24 X10*6/uL (4.20-5.50); Red Cell Distribution Width 23.7 % (11.0-16.0); White Blood Count 9.4 X10*3/uL (4.8-10.8)
[2021-06-24 20:18] LABS: INTERNATIONAL NORM RATIO 1.2 (0.9-1.1); Prothrombin Time 13.1 SEC (9.9-13.0)
[2021-06-24 20:21] LABS: Partial Thromboplastin Time 36.5 SEC (24.1-38.0)
[2021-06-24 20:40] LABS: Glucose, Whole Blood 147 mg/dL (60-115)
--- NOTE | 2021-06-24 20:45 | PC.NURSE ---
POC compelted results of 147 documented and reported to RN . Patient stating she is hungry. Chicken sandwich , diabetic custard , chips and water given to patient
[2021-06-24] MEDS: Enoxaparin Sodium 100 MG/ML SYRINGE SUBCUT (20:48)
[2021-06-24] MEDS: Pravastatin Sodium 40 MG TABLET PO (20:48)
[2021-06-24] MEDS: methylPREDNISolone Sod Succ 40 MG/ML VIAL IVPUSH (20:48)
[2021-06-24] MEDS: Insulin Glargine,Hum.rec.anlog 100 UNIT/ML 10 ML VIAL 20 UNIT SUBCUT (20:48)
[2021-06-24] MEDS: 0.9 % Sodium Chloride Flush 3 ML SYRINGE IVFLUSH (20:49)
--- NOTE | 2021-06-24 21:10 | MHC.CM.PN ---
CM met with patient with bed assignment pending in ED OVER. A&Ox3. IMM reviewed and signed per protocol 06/24/2021@2054. No HCP on file. Copy requested. HCP/son Jarrett Denney ([phone]). PCP is Dr. Nugent. Fully vaccinated and boosted with Moderna. Lives with granddaughter, Uses a walker and has home oxygen from [facility]. Has appointment with [facility] services. Has [facility] services. Has small cell lung ancer. Just completed chemotherapy. Will start immunotherapy on Sunday. Sees Dr. Mendoza. Has chronic leg wounds, followed by wound care at [facility]. D/C plan is home with existing services. Son will provide transportation home. CM to follow for d/c needs.
[2021-06-24] MEDS: Ammonium Lactate 12 % Cream 140 GM TUBE 1 APPL TOPICAL (21:58)
[2021-06-24] MEDS: Morphine Sulfate ER 30 MG TABLET.ER PO (21:58)
[2021-06-24] MEDS: Montelukast Sodium 10 MG TABLET PO (21:58)
[2021-06-25] VITALS (9 sets, daily range): BP systolic 116–145; BP diastolic 46–62; PULSE 58–90; RESP 15–33; TEMP 36.8; O2SAT 90–98
[2021-06-25] MEDS: methylPREDNISolone Sod Succ 40 MG/ML VIAL IVPUSH ×3 (05:03→20:44)
[2021-06-25] MEDS: Omeprazole 20 MG CAPSULE.DR PO (05:04)
[2021-06-25 06:38] LABS: MANUAL DIFF FLAG NO
[2021-06-25 06:50] LABS: Basophils Percent Auto 0.1 % (0-2); Hematocrit 29.5 % (37.0-47.0); Hemoglobin 8.9 g/dl (12.0-16.0); Imm Gran Abs Auto 0.07 X10*3/uL (0.00-0.03); Imm Gran Pct Auto 0.8 % (0.0-0.4); Lymphocytes Absolute Auto 1.8 X10*3/uL (1.2-4.9); Lymphocytes Percent Auto 21.6 % (20-40); Mean Corpuscular HGB Conc 30.2 g/dl (31.0-35.0); Mean Corpuscular Hemoglobin 26.9 pg (27.0-33.0); Mean Corpuscular Volume 89.1 fL (80.0-98.0); Mean Platelet Volume 9.6 fL (9.4-12.3); Monocytes Absolute Auto 0.4 X10*3/uL (0.1-1.2); Monocytes Percent Auto 4.5 % (2-11); Neutrophils Absolute Auto 6.2 x10*3/uL (2.0-8.3); Platelet Count 256 X10*3/uL (160-400); Red Blood Count 3.31 X10*6/uL (4.20-5.50); Red Cell Distribution Width 23.7 % (11.0-16.0); White Blood Count 8.4 X10*3/uL (4.8-10.8)
[2021-06-25 06:55] LABS: Anion Gap 15 (12-20); Blood Urea Nitrogen 13 mg/dL (9-16); Calcium 8.5 mg/dL (8.4-10.2); Carbon Dioxide 18 mmol/L (22-29); Chloride 105 mmol/L (96-108); Creatinine Clr Calc Pharmacy 70.2; Estimated Glomerular Filt Rate > 60; Glucose Random 158 mg/dL (60-115); Potassium 5.2 mmol/L (3.3-5.1); Sodium 133 mmol/L (135-145)
[2021-06-25] MEDS: Albuterol/Iprat 2.5/0.5MG 3 ML AMPUL.NEB INHALE ×3 (08:21→19:48)
[2021-06-25 08:22] LABS: Glucose, Whole Blood 148 mg/dL (60-115)
[2021-06-25] MEDS: Morphine Sulfate ER 30 MG TABLET.ER PO ×2 (08:27→20:43)
[2021-06-25] MEDS: Valsartan 40 MG TABLET PO (08:27)
[2021-06-25] MEDS: Escitalopram Oxalate 20 MG TABLET PO (08:27)
[2021-06-25] MEDS: Ammonium Lactate 12 % Cream 140 GM TUBE 1 APPL TOPICAL ×2 (08:28→21:20)
[2021-06-25] MEDS: Enoxaparin Sodium 100 MG/ML SYRINGE SUBCUT ×2 (08:28→20:43)
--- NOTE | 2021-06-25 09:07 | PC.NURSE ---
Pt A&OX3, no complaints of pain at this time, on [id number] 60%, hiflow removed for AM care, O2 sat dropped to 70% on room air but once placed back on Hiflow O2 sat returned to the mid 90's. Lungs with crackles throughout, NSR in the 80's on the monitor. BLE with redness, dry cracking/peeling skin and +2 chronic pitting edema, bedside cream applied to BLE by this RN. Pt also has a wounf to R buttocks which appears to be healing and chronic. About 30 mins after initial assessment, pt became tachypnic and dizzy, respiratory and hosp notified, placed on oxymask by respiratory. Symptoms subsided with pursed lip breathing and assurance. Call so within reach, will continue to monitor.
--- NOTE | 2021-06-25 11:24 | PM.CNPUL ---
History of Present Illness History of Present Illness Consult date: 06/25/21 Chief complaint: Respiratory Failure Narrative: This is an inpatient pulmonary consultation. This is an 81-year-old female with history of metastatic lung cancer, COPD, respiratory failure on 2 L of home O2 sent to the emergency department by [facility] due to increasing shortness of breath.? Patient states that yesterday she was not feeling well and had decreased appetite.? Today she reports increasing shortness of breath.? She denies any associated fever, chills, cough.? No recent sick contacts on arrival in the emergency department she was significantly hypoxic with oxygen saturation in the mid 70s on 8 L.? She was briefly placed on BiPAP but able to be weaned back down to 8 L.? Unfortunately she continued to desaturate and was therefore placed on high-flow oxygen.? The patient did have a CT scan of the chest ruling out pulmonary embolism. I personally reviewed the CT scan demonstrating significant emphysema in addition to extensive ground-glass opacities bilaterally. The patient did require significant MR oxygen. She was placed on antibiotics and also Solu-Medrol. Now she is able to wean down to a Ventimask. On further questioning she did receive chemotherapy about 3 weeks ago. She was scheduled to start immune therapy on Sunday. Unfortunately spoke to her about the fact that under steroid she cannot start immune therapy as of yet for her cancer. Review of Systems Review of Systems: Yes all other systems are reviewed and are negative Constitutional: Constitutional: Reports no additional constitutional complaints, Denies body ache(s), Denies chills, Reports fatigue, Denies fever(s), Denies headache(s) and Denies weakness Eyes: Eyes: Reports no additional eye complaints and Denies change in vision ENT: Reports system reviewed and no additional complaints, except as documented, Denies dizziness, Denies headache(s), Denies nasal congestion, Denies nasal discharge and Denies neck pain Cardiovascular: Cardiovascular: Reports no additional cardiovascular complaints, Denies chest pain, Reports leg ulcers, Reports leg edema and Reports dyspnea Respiratory: Respiratory: Denies chest congestion, Reports cough and Reports dyspnea Gastrointestinal: Gastrointestinal: Reports no additional gastrointestinal complaints, Denies abdominal pain, Denies diarrhea, Denies nausea and Denies vomiting Genitourinary: Genitourinary: Reports no additional female genitourinary complaints and Denies urinary incontinence Musculoskeletal: Musculoskeletal: Reports no additional musculoskeletal complaints, Denies back pain, Denies arthralgias, Denies joint swelling, Denies neck pain, Denies numbness and Denies tingling Integumentary/Breasts: Skin/Breast: Reports system reviewed and no additional complaints, except as docu, Reports swelling and Denies rash Neurologic: Reports system reviewed and no additional complaints, except as documented, Denies Abnormal speech present, Denies dizziness, Denies headache(s), Denies numbness, Denies tingling and Denies weakness Endocrine: Endocrine: Reports fatigue PMFSH Past Medical History Medical History (Updated 06/25/21 @ 11:29 by Dipesh Price MD) COPD (chronic obstructive pulmonary disease) Deep vein thrombosis of lower extremity Diabetes mellitus, type 2 Hypertension Lung cancer Pneumonitis Small cell lung cancer Functional capacity: uses cane/walker Family History Family History Mother Breast cancer Diabetes HTN (hypertension) Father Lung cancer Surgical History Surgical History History of section Social History Social History Household Members: Other Housing: House Do you presently have visiting nurse or other home services: No Alcohol intake: never Patient Tobacco Use Status: Former Tobacco user Tobacco use type: Cigarette Second Hand Smoke Exposure: No Use of substances other than those prescribed or required for medical reasons: No Advance Directives: Yes Advance Directives Information Provided: Yes Advance Directives on File: No Advance Directives Date on File: 03/28/21 service: No Current occupational status: retired [employer] Allergies Allergy/AdvReac Type Severity Reaction Status Date / Time No Known Drug Allergies Allergy Unknown Verified 05/23/21 10:54 Active Medications: Current Medications Acetaminophen (Acetaminophen 325 Mg Tablet) 650 mg PO Q6H PRN PRN Reason: Pain, Mild (Pain Scale 1-3) Albuterol Sulfate (Albuterol Sulfate (0.083%) 2.5 Mg/3 Ml Vial.Neb) 2.5 mg INHALE RQ4H PRN PRN Reason: shortness of breath Albuterol/Ipratropium (Albuterol/Iprat 2.5/0.5mg 3 Ml Ampul.Neb) 3 ml INHALE RQ6H WHILE AWAKE [facility] Last Admin: 06/25/21 08:21 Dose: 3 ml Documented by: Dextrose (Dextrose 50 % 25 Gm/50 Ml Vial) 25 gm IVPUSH Q15M PRN; Protocol PRN Reason: per Hypoglycemia Standing Ord. Docusate Sodium (Docusate Sodium 100 Mg Capsule) 100 mg PO DAILY PRN PRN Reason: Constipation Enoxaparin Sodium (Enoxaparin Sodium 100 Mg/Ml Syringe) 100 mg SUBCUT Q12H [facility] Last Admin: 06/25/21 08:28 Dose: 100 mg Documented by: Escitalopram Oxalate (Escitalopram Oxalate 20 Mg Tablet) 20 mg PO DAILY [facility] Last Admin: 06/25/21 08:27 Dose: 20 mg Documented by: Glucose (Glucose Gel 15 Gm Gel..Gram.) 15 gm PO Q15M PRN; Protocol PRN Reason: per Hypoglycemia Standing Ord. Ceftriaxone Sodium 1 gm/ (Sodium Chloride) 50 mls @ 100 mls/hr IV Q24H [facility] Insulin Glargine (Insulin Glargine,Hum.Rec.Anlog 100 Unit/Ml 10 Ml Vial) 20 unit SUBCUT BEDTIME [facility] Last Admin: 06/24/21 20:48 Dose: 20 unit Documented by: Insulin Human Lispro (Insulin Lispro 100 Unit/Ml 3 Ml Vial) 0 unit SUBCUT QIDACHS [facility]; Protocol Last Admin: 06/25/21 08:22 Dose: Not Given Documented by: Lactic Acid (Ammonium Lactate 12 % Cream 140 Gm Tube) 1 appl TOPICAL BID [facility]; Protocol Last Admin: 06/25/21 08:28 Dose: 1 appl Documented by: Loperamide HCl (Loperamide Hcl 2 Mg Capsule) 2 mg PO Q6H PRN PRN Reason: Diarrhea Methylprednisolone Sodium Succinate (Methylprednisolone Sod Succ 40 Mg/Ml Vial) 40 mg IVPUSH Q8H [facility] Last Admin: 06/25/21 05:03 Dose: 40 mg Documented by: Montelukast Sodium (Montelukast Sodium 10 Mg Tablet) 10 mg PO BEDTIME [facility] Last Admin: 06/24/21 21:58 Dose: 10 mg Documented by: Morphine Sulfate (Morphine Sulfate Er 30 Mg Tablet.Er) 30 mg PO Q12H [facility] Last Admin: 06/25/21 08:27 Dose: 30 mg Documented by: Omeprazole (Omeprazole 20 Mg Capsule.) 20 mg PO DAILY@0630 [facility] Last Admin: 06/25/21 05:04 Dose: 20 mg Documented by: Ondansetron HCl (Ondansetron Hcl 4 Mg/2 Ml Vial) 4 mg IVPUSH Q8H PRN PRN Reason: Nausea and Vomiting Pharmacy Consult (Consult Rx Perform Med Rec) 1 each MISCELLANE ONCE PRN PRN Reason: Consult order Pravastatin Sodium (Pravastatin Sodium 40 Mg Tablet) 40 mg PO BEDTIME [facility] Last Admin: 06/24/21 20:48 Dose: 40 mg Documented by: Sodium Chloride (0.9 % Sodium Chloride Flush 3 Ml Syringe) 3 ml IVFLUSH QSHIFT [facility] Last Admin: 06/25/21 07:29 Dose: Not Given Documented by: Valsartan (Valsartan 40 Mg Tablet) 40 mg PO DAILY [facility] Last Admin: 06/25/21 08:27 Dose: 40 mg Documented by: Home Medications Medication Instructions Recorded Confirmed Last Taken Type citalopram 20 mg tablet 40 mg PO DAILY 02/28/21 06/24/21 06/24/21 History insulin glargine 100 unit/mL (3 20 unit SUBCUT BEDTIME 02/28/21 06/24/21 06/23/21 History mL) subcutaneous pen (Lantus Solostar U-100 Insulin) irbesartan 75 mg tablet 75 mg PO DAILY 02/28/21 06/24/21 06/24/21 History metformin 500 mg tablet,extended 500 mg PO BID 02/28/21 06/24/21 06/24/21 History release 24 hr montelukast 10 mg tablet 1 tab PO BEDTIME 02/28/21 06/24/21 06/23/21 History oxybutynin chloride 5 mg tablet 1 tab PO TID PRN 02/28/21 06/24/21 06/24/21 History pantoprazole 40 mg tablet,delayed 40 mg PO DAILY 02/28/21 06/24/21 06/24/21 History release pravastatin 40 mg tablet 40 mg PO BEDTIME 02/28/21 06/24/21 06/23/21 History ammonium lactate 12 % topical cream 1 applic TOPICAL BID 05/07/21 06/24/21 06/24/21 History Calcium 600 mg +D 800 iu 1 tab PO BID 06/24/21 06/24/21 06/24/21 History glycopyrrolate 9 mcg-formoterol 2 puff INHALATION BID 06/24/21 06/24/21 06/24/21 History 4.8 mcg HFA aerosol inhaler (Bevespi Aerosphere) ipratropium 20 mcg-albuterol 100 1 puff INHALATION QID 06/24/21 06/24/21 06/24/21 History mcg/actuation mist for inhalation (Combivent Respimat) meclizine 25 mg tablet 1 - 2 tab PO Q6-8H PRN 06/24/21 06/24/21 Unknown History sulfamethoxazole 800 1 tab PO BID 06/24/21 06/24/21 06/24/21 History mg-trimethoprim 160 mg tablet Physical Exam Vital Signs: Vital Signs: Last Vital Signs Temp 98.1 F 06/24/21 23:11 Pulse 90 06/25/21 09:07 Resp 33 H 06/25/21 09:07 BP 145/56 H 06/25/21 09:07 Pulse Ox 96 06/25/21 09:07 Oxygen Flow Rate 8 06/24/21 13:06 BMI result Body Mass Index 36.9 Const: General: alert HENMT: Head: Yes other (alopecia) Neck: Neck: Yes normal visual inspection, Yes full ROM and Yes no lymphadenopathy Chest: Chest palpation & inspection: normal inspection of the chest Resp: Auscultation: rales, diminished lung sounds and bronchial breath sounds Cardio: Rate: regular rate Rhythm: regular rhythm Heart sounds: S1 normal heart sound present and S2 normal heart sound present GI: Palpation (GI): Soft to palpation and nontender Auscultation: normal bowel sounds Skin: General skin exam: rashes and/or lesions noted Wounds: wounds noted Neuro: Speech: No Abnormal speech present Extrem: General: Yes edema Results Laboratory Findings CBC and BMP: 06/25/21 05:51 06/25/21 05:51 ABG, PT/INR, D-dimer: PT/INR, D-dimer PT 13.1 SEC (9.9-13.0) H 06/24/21 20:06 INR 1.2 (0.9-1.1) H 06/24/21 20:06 Abnormal lab findings: Abnormal Labs 06/24/21 06/24/21 06/24/21 14:22 14:22 14:22 WBC 12.1 H RBC 3.44 L Hgb 9.2 L Hct 30.5 L MCH 26.7 L MCHC 30.2 L RDW 23.6 H MPV 8.7 L Immature Gran % (Auto) 0.6 H Abs Immat Gran (auto) 0.07 H PT 13.5 H INR 1.2 H Sodium 131 L Potassium Carbon Dioxide 19 L BUN 17 H POC Glucose Random Glucose Total Protein 6.2 L Albumin 3.1 L 06/24/21 06/24/21 06/24/21 20:06 20:06 20:36 WBC RBC 3.24 L Hgb 8.7 L Hct 28.7 L MCH 26.9 L MCHC 30.3 L RDW 23.7 H MPV 8.9 L Immature Gran % (Auto) Abs Immat Gran (auto) PT 13.1 H INR 1.2 H Sodium Potassium Carbon Dioxide BUN POC Glucose 147 H Random Glucose Total Protein Albumin 06/25/21 06/25/21 06/25/21 05:51 05:51 08:04 WBC RBC 3.31 L Hgb 8.9 L Hct 29.5 L MCH 26.9 L MCHC 30.2 L RDW 23.7 H MPV Immature Gran % (Auto) 0.8 H Abs Immat Gran (auto) 0.07 H PT INR Sodium 133 L Potassium 5.2 H Carbon Dioxide 18 L BUN POC Glucose 148 H Random Glucose 158 H Total Protein Albumin Assessment and Plan (1) Acute respiratory failure: Status: Acute (2) Pneumonitis: Status: Acute (3) Pneumonia: Qualifiers: Pneumonia type: due to unspecified organism Laterality: bilateral Lung location: unspecified part of lung Qualified Code(s): J18.9 - Pneumonia, unspecified organism Status: Acute (4) Small cell lung cancer: Status: Acute Plan The patient is presenting with acute respiratory failure secondary to significant pneumonitis. This point this may be infectious process versus a drug-induced process. The patient recently did receive chemotherapy. At this point have to look back to see which agent she used that could have potentially resulting in pulmonary toxicity. In the meantime she seems to be responding well to the prednisone. She is also getting antibiotics just in case. Recommendations: Requesting complete respiratory viral panel Continue antibiotic therapy treating for atypical organisms Consider checking Legionella urine antigen Check IgE Continue continue Solu-Medrol to current does Oxygen supplementation to maintain a pulse ox above 90% Patient had plan immune therapy for Sunday. At this point this will be have to be postponed. Oncology should be involved on Sunday. Further recommendation based on forthcoming data Procedures Date of Service Date of Service: 06/25/21
--- NOTE | 2021-06-25 11:34 | P.PNIM_ITS ---
Subjective Subjective Date of Service: 06/25/21 Review of Systems Follow up Resp failure was having trouble with the high flow and became quiet anxious but better now Denies chest pain or shortness of breath Physical Exam Vital Signs: Vital Signs: Last Vital Signs Temp 98.1 F 06/24/21 23:11 Pulse 90 06/25/21 09:07 Resp 33 H 06/25/21 09:07 BP 145/56 H 06/25/21 09:07 Pulse Ox 96 06/25/21 09:07 Oxygen Flow Rate 8 06/24/21 13:06 BMI result Body Mass Index 36.9 Appearing in no acute distress lung sound rhonchi heart regular rate rhythm, clear S1, S2 positive bowel sounds, abdomen is soft, nontender neuro patient is alert x3, no focal deficits Objective Data Active Medications Acetaminophen (Acetaminophen 325 Mg Tablet) 650 mg PO Q6H PRN PRN Reason: Pain, Mild (Pain Scale 1-3) Albuterol Sulfate (Albuterol Sulfate (0.083%) 2.5 Mg/3 Ml Vial.Neb) 2.5 mg INHALE RQ4H PRN PRN Reason: shortness of breath Albuterol/Ipratropium (Albuterol/Iprat 2.5/0.5mg 3 Ml Ampul.Neb) 3 ml INHALE RQ6H WHILE AWAKE [facility] Last Admin: 06/25/21 08:21 Dose: 3 ml Documented by: SONAM Dextrose (Dextrose 50 % 25 Gm/50 Ml Vial) 25 gm IVPUSH Q15M PRN; Protocol PRN Reason: per Hypoglycemia Standing Ord. Docusate Sodium (Docusate Sodium 100 Mg Capsule) 100 mg PO DAILY PRN PRN Reason: Constipation Enoxaparin Sodium (Enoxaparin Sodium 100 Mg/Ml Syringe) 100 mg SUBCUT Q12H [facility] Last Admin: 06/25/21 08:28 Dose: 100 mg Documented by: JORGE Escitalopram Oxalate (Escitalopram Oxalate 20 Mg Tablet) 20 mg PO DAILY [facility] Last Admin: 06/25/21 08:27 Dose: 20 mg Documented by: JORGE Glucose (Glucose Gel 15 Gm Gel..Gram.) 15 gm PO Q15M PRN; Protocol PRN Reason: per Hypoglycemia Standing Ord. Ceftriaxone Sodium 1 gm/ (Sodium Chloride) 50 mls @ 100 mls/hr IV Q24H [facility] Insulin Glargine (Insulin Glargine,Hum.Rec.Anlog 100 Unit/Ml 10 Ml Vial) 20 unit SUBCUT BEDTIME [facility] Last Admin: 06/24/21 20:48 Dose: 20 unit Documented by: JEVON Insulin Human Lispro (Insulin Lispro 100 Unit/Ml 3 Ml Vial) 0 unit SUBCUT QIDACHS [facility]; Protocol Last Admin: 06/25/21 08:22 Dose: Not Given Documented by: JORGE Non-Admin Reason: No Insulin Coverage Lactic Acid (Ammonium Lactate 12 % Cream 140 Gm Tube) 1 appl TOPICAL BID [facility]; Protocol Last Admin: 06/25/21 08:28 Dose: 1 appl Documented by: JORGE Loperamide HCl (Loperamide Hcl 2 Mg Capsule) 2 mg PO Q6H PRN PRN Reason: Diarrhea Methylprednisolone Sodium Succinate (Methylprednisolone Sod Succ 40 Mg/Ml Vial) 40 mg IVPUSH Q8H [facility] Last Admin: 06/25/21 05:03 Dose: 40 mg Documented by: JEVON Montelukast Sodium (Montelukast Sodium 10 Mg Tablet) 10 mg PO BEDTIME [facility] Last Admin: 06/24/21 21:58 Dose: 10 mg Documented by: JEVON Morphine Sulfate (Morphine Sulfate Er 30 Mg Tablet.Er) 30 mg PO Q12H [facility] Last Admin: 06/25/21 08:27 Dose: 30 mg Documented by: JORGE Omeprazole (Omeprazole 20 Mg Capsule.Dr) 20 mg PO DAILY@0630 [facility] Last Admin: 06/25/21 05:04 Dose: 20 mg Documented by: JEVON Ondansetron HCl (Ondansetron Hcl 4 Mg/2 Ml Vial) 4 mg IVPUSH Q8H PRN PRN Reason: Nausea and Vomiting Pharmacy Consult (Consult Rx Perform Med Rec) 1 each MISCELLANE ONCE PRN PRN Reason: Consult order Pravastatin Sodium (Pravastatin Sodium 40 Mg Tablet) 40 mg PO BEDTIME [facility] Last Admin: 06/24/21 20:48 Dose: 40 mg Documented by: JEVON Sodium Chloride (0.9 % Sodium Chloride Flush 3 Ml Syringe) 3 ml IVFLUSH QSHIFT [facility] Last Admin: 06/25/21 07:29 Dose: Not Given Documented by: JORGE Non-Admin Reason: IV Running Valsartan (Valsartan 40 Mg Tablet) 40 mg PO DAILY [facility] Last Admin: 06/25/21 08:27 Dose: 40 mg Documented by: JORGE Labs CBC & Chem 7: 06/25/21 05:51 06/25/21 05:51 Labs: Laboratory Results - last 24 hr 06/24/21 06/24/21 06/24/21 14:22 14:22 14:22 MCV 88.7 MCH 26.7 L MCHC 30.2 L RDW 23.6 H Plt Count 223 MPV 8.7 L Immature Gran % (Auto) 0.6 H Neut % (Auto) 68.0 Lymph % (Auto) 23.5 [place] % (Auto) 6.3 Eos % (Auto) 1.2 Baso % (Auto) 0.4 Lymph # (Auto) 2.8 [place] # (Auto) 0.8 Eos # (Auto) 0.2 Baso # (Auto) 0.1 Abs Immat Gran (auto) 0.07 H Absolute Neuts (auto) 8.2 Absolute Nucleated RBC 0.000 Nucleated RBC % (auto) 0.0 PT 13.5 H INR 1.2 H APTT D-Dimer High Sensitivty 652 Anion Gap 14 Estim Creat Clear Calc 66.5 Estimated GFR > 60 POC Glucose Random Glucose 95 Lactic Acid Calcium 8.9 Total Bilirubin 0.4 Direct Bilirubin 0.2 AST 20 D ALT 9 Alkaline Phosphatase 66 D B-Natriuretic Peptide Total Protein 6.2 L Albumin 3.1 L COVID-19 (THEA) COVID-19 Clin Com 06/24/21 06/24/21 06/24/21 14:22 14:22 14:22 MCV MCH MCHC RDW Plt Count MPV Immature Gran % (Auto) Neut % (Auto) Lymph % (Auto) [place] % (Auto) Eos % (Auto) Baso % (Auto) Lymph # (Auto) [place] # (Auto) Eos # (Auto) Baso # (Auto) Abs Immat Gran (auto) Absolute Neuts (auto) Absolute Nucleated RBC Nucleated RBC % (auto) PT INR APTT D-Dimer High Sensitivty Anion Gap Estim Creat Clear Calc Estimated GFR POC Glucose Random Glucose Lactic Acid 0.7 Calcium Total Bilirubin Direct Bilirubin AST ALT Alkaline Phosphatase B-Natriuretic Peptide 94 Total Protein Albumin COVID-19 (THEA) Negative COVID-19 Weesh Com See Note 06/24/21 06/24/21 06/24/21 20:06 20:06 20:36 MCV 88.6 MCH 26.9 L MCHC 30.3 L RDW 23.7 H Plt Count 223 MPV 8.9 L Immature Gran % (Auto) Neut % (Auto) Lymph % (Auto) [place] % (Auto) Eos % (Auto) Baso % (Auto) Lymph # (Auto) [place] # (Auto) Eos # (Auto) Baso # (Auto) Abs Immat Gran (auto) Absolute Neuts (auto) Absolute Nucleated RBC 0.000 Nucleated RBC % (auto) 0.0 PT 13.1 H INR 1.2 H APTT 36.5 D-Dimer High Sensitivty Anion Gap Estim Creat Clear Calc Estimated GFR POC Glucose 147 H Random Glucose Lactic Acid Calcium Total Bilirubin Direct Bilirubin AST ALT Alkaline Phosphatase B-Natriuretic Peptide Total Protein Albumin COVID-19 (THEA) COVID-Achievers 06/25/21 06/25/21 06/25/21 05:51 05:51 08:04 MCV 89.1 MCH 26.9 L MCHC 30.2 L RDW 23.7 H Plt Count 256 MPV 9.6 Immature Gran % (Auto) 0.8 H Neut % (Auto) 73.0 Lymph % (Auto) 21.6 [place] % (Auto) 4.5 Eos % (Auto) 0.0 Baso % (Auto) 0.1 Lymph # (Auto) 1.8 [place] # (Auto) 0.4 Eos # (Auto) 0.0 Baso # (Auto) 0.0 Abs Immat Gran (auto) 0.07 H Absolute Neuts (auto) 6.2 Absolute Nucleated RBC 0.000 Nucleated RBC % (auto) 0.0 PT INR APTT D-Dimer High Sensitivty Anion Gap 15 Estim Creat Clear Calc 70.2 Estimated GFR > 60 POC Glucose 148 H Random Glucose 158 H Lactic Acid Calcium 8.5 Total Bilirubin Direct Bilirubin AST ALT Alkaline Phosphatase B-Natriuretic Peptide Total Protein Albumin COVID-19 (THEA) COVID-19 [place] [employer] Assessment and Plan (1) COPD exacerbation: Status: Resolved (2) Community acquired pneumonia: Status: Acute Plan This is an 81-year-old female with history of COPD, chronic respiratory failure on 2 L of home oxygen, metastatic lung cancer currently undergoing chemotherapy, diabetes, hypertension, chronic lower extremity leg wounds followed by the wound clinic brought to the emergency department for shortness of breath found to have respiratory failure Acute on chronic respiratory failure with hypoxia Broad differential at this point including inflammatory versus infectious versus chemo related fibrosis versus COPD continue IV Solu-Medrol, ceftriaxone, scheduled and p.r.n. breathing treatments pulmonology consult transitioned to mask from high-flow, doing well Chronic Lower extremity DVT Continue therapeutic Lovenox Diabetes Hold metformin SSI, pocs Chronic pain Continue home medications Hyperlipidemia Continue statin Hypertension Arb non formulary convert to formulary equivalent DVT prophylaxis-therapeutic Lovenox Code status DNR/DNI Healthcare proxy-son Attending physician Dr. Gerber Patient requires continued hospitalization for treatment with high oxygen demand, IV antibiotics and IV steroids. Quality Stroke Does the patient have a stroke diagnosis?: No VTE Prior VTE?: No VTE Risk Level:: Medical - moderate - high VTE Device Contraindication: Treatment Not Indicated VTE Drug Contraindication: N/A - Med Ordered
[2021-06-25 11:44] LABS: Glucose, Whole Blood 145 mg/dL (60-115)
[2021-06-25] MEDS: cefTRIAXone sodium 1 GM in 0.9 % Sodium Chloride 50 ML IV (14:39)
[2021-06-25 18:34] LABS: INTERNATIONAL NORM RATIO 1.1 (0.9-1.1); Prothrombin Time 12.5 SEC (9.9-13.0)
[2021-06-25 18:41] LABS: Glucose, Whole Blood 197 mg/dL (60-115)
[2021-06-25] MEDS: Pravastatin Sodium 40 MG TABLET PO (20:43)
[2021-06-25 21:16] LABS: Glucose, Whole Blood 287 mg/dL (60-115)
[2021-06-25] MEDS: Insulin Lispro 100 UNIT/ML 3 ML VIAL SUBCUT (21:17)
[2021-06-25] MEDS: Insulin Glargine,Hum.rec.anlog 100 UNIT/ML 10 ML VIAL 20 UNIT SUBCUT (21:17)
[2021-06-25] MEDS: Montelukast Sodium 10 MG TABLET PO (21:17)
[2021-06-26] VITALS (10 sets, daily range): BP systolic 148–178; BP diastolic 53–85; PULSE 70–93; RESP 17–24; TEMP 36.7–37.2; O2SAT 84–98
[2021-06-26] MEDS: methylPREDNISolone Sod Succ 40 MG/ML VIAL IVPUSH ×3 (05:51→21:26)
[2021-06-26] MEDS: Omeprazole 20 MG CAPSULE.DR PO (05:52)
[2021-06-26 07:50] LABS: Glucose, Whole Blood 127 mg/dL (60-115)
--- NOTE | 2021-06-26 07:57 | PC.RT ---
arrived to patient bedside to find patient attempting to eat breakfast. Patient on 8L nasal cannula with SpO2 sensor off finger. When SpO2 placed on finger, SpO2 level at 73%. This RT attempted to place patient on HFNC to improve oxygenation, at which point patient stated that she wanted to eat regardless of oxygenation. Informed patient this was unsafe, patient became angry and stated she won't eat. Patient placed on 15L oxymask, per patient request. Suggested to patient to remove mask to take bites of food to try and maintain adequate oxygenation.
[2021-06-26] MEDS: Albuterol/Iprat 2.5/0.5MG 3 ML AMPUL.NEB INHALE ×2 (08:08→13:47)
[2021-06-26] MEDS: Ammonium Lactate 12 % Cream 140 GM TUBE 1 APPL TOPICAL ×2 (08:14→21:20)
[2021-06-26] MEDS: Escitalopram Oxalate 20 MG TABLET PO (08:15)
[2021-06-26] MEDS: Morphine Sulfate ER 30 MG TABLET.ER PO ×2 (08:15→21:26)
[2021-06-26] MEDS: Enoxaparin Sodium 100 MG/ML SYRINGE SUBCUT ×2 (08:16→21:26)
[2021-06-26] MEDS: Valsartan 40 MG TABLET PO (08:16)
[2021-06-26] MEDS: 0.9 % Sodium Chloride Flush 3 ML SYRINGE IVFLUSH ×3 (09:52→15:40)
[2021-06-26 11:00] LABS: Hematocrit 30.5 % (37.0-47.0); Hemoglobin 9.3 g/dl (12.0-16.0); Mean Corpuscular HGB Conc 30.5 g/dl (31.0-35.0); Mean Corpuscular Volume 88.7 fL (80.0-98.0); Mean Platelet Volume 9.3 fL (9.4-12.3); Platelet Count 284 X10*3/uL (160-400); Red Blood Count 3.44 X10*6/uL (4.20-5.50); Red Cell Distribution Width 23.9 % (11.0-16.0); White Blood Count 11.9 X10*3/uL (4.8-10.8)
[2021-06-26 11:12] LABS: Anion Gap 13 (12-20); Blood Urea Nitrogen 11 mg/dL (9-16); Calcium 9.3 mg/dL (8.4-10.2); Carbon Dioxide 23 mmol/L (22-29); Chloride 102 mmol/L (96-108); Creatinine Clr Calc Pharmacy 74.5; Estimated Glomerular Filt Rate > 60; Glucose Random 170 mg/dL (60-115); Potassium 4.5 mmol/L (3.3-5.1); Sodium 133 mmol/L (135-145)
[2021-06-26 11:39] LABS: Glucose, Whole Blood 161 mg/dL (60-115)
--- NOTE | 2021-06-26 12:53 | PC.NURSE ---
Patient alert and oriented. Reports pleural pain and medicated with scheduled MS Contin with good effect. Provider at bedside this shift for discussion regarding importance of wearing O2. Patient verbalizes understanding but reports that wearing the O2 masks makes her miserable . Patient assisted to commode to urinate and have a small formed bm. Patient desatted into the 70s during the transfer and reported feeling SOB. Inspiratory rhonchi/wheezes throughout. Patient assisted back to bed and took several minutes to get back to 90% SpO2. Patient washed up and ammonium lactate applied to legs. Port to right chest accessed and labs drawn from the port this shift. Patient currently waiting for lunch watching tv. Call so within reach. Will continue to monitor.
--- NOTE | 2021-06-26 13:12 | P.PNIM_ITS ---
Subjective Subjective Date of Service: 06/26/21 Review of Systems Follow up respiratory failure Not wanting to wear high-flow oxygen, agreeing to wear mask and nasal cannula Denies chest pain, reports shortness of breath and longer time recovering do taken off oxygen mask Physical Exam Vital Signs: Vital Signs: Last Vital Signs Temp 98.1 F 06/26/21 08:42 Pulse 86 06/26/21 08:42 Resp 21 H 06/26/21 08:42 BP 155/69 H 06/26/21 08:42 Pulse Ox 90 L 06/26/21 08:42 Oxygen Flow Rate 8 06/24/21 13:06 BMI result Body Mass Index 36.9 Appearing in no acute distress lung sounds dim heart regular rate rhythm, clear S1, S2 positive bowel sounds, abdomen is soft, nontender neuro patient is alert x3, no focal deficits Objective Data Active Medications Acetaminophen (Acetaminophen 325 Mg Tablet) 650 mg PO Q6H PRN PRN Reason: Pain, Mild (Pain Scale 1-3) Albuterol Sulfate (Albuterol Sulfate (0.083%) 2.5 Mg/3 Ml Vial.Neb) 2.5 mg INHALE RQ4H PRN PRN Reason: shortness of breath Albuterol/Ipratropium (Albuterol/Iprat 2.5/0.5mg 3 Ml Ampul.Neb) 3 ml INHALE RQ6H WHILE AWAKE [facility] Last Admin: 06/26/21 08:08 Dose: 3 ml Documented by: SONAM Dextrose (Dextrose 50 % 25 Gm/50 Ml Vial) 25 gm IVPUSH Q15M PRN; Protocol PRN Reason: per Hypoglycemia Standing Ord. Docusate Sodium (Docusate Sodium 100 Mg Capsule) 100 mg PO DAILY PRN PRN Reason: Constipation Enoxaparin Sodium (Enoxaparin Sodium 100 Mg/Ml Syringe) 100 mg SUBCUT Q12H [facility] Last Admin: 06/26/21 08:16 Dose: 100 mg Documented by: JERRI Escitalopram Oxalate (Escitalopram Oxalate 20 Mg Tablet) 20 mg PO DAILY [facility] Last Admin: 06/26/21 08:15 Dose: 20 mg Documented by: JERRI Glucose (Glucose Gel 15 Gm Gel..Gram.) 15 gm PO Q15M PRN; Protocol PRN Reason: per Hypoglycemia Standing Ord. Ceftriaxone Sodium 1 gm/ (Sodium Chloride) 50 mls @ 100 mls/hr IV Q24H [facility] Last Infusion: 06/25/21 15:52 Dose: 0 mls/hr Documented by: JORGE Insulin Glargine (Insulin Glargine,Hum.Rec.Anlog 100 Unit/Ml 10 Ml Vial) 20 unit SUBCUT BEDTIME [facility] Last Admin: 06/25/21 21:17 Dose: 20 unit Documented by: MICHAEL Insulin Human Lispro (Insulin Lispro 100 Unit/Ml 3 Ml Vial) 0 unit SUBCUT QIDACHS [facility]; Protocol Last Admin: 06/26/21 12:24 Dose: Not Given Documented by: JERRI Non-Admin Reason: Patient Refused Lactic Acid (Ammonium Lactate 12 % Cream 140 Gm Tube) 1 appl TOPICAL BID [facility]; Protocol Last Admin: 06/26/21 08:14 Dose: 1 appl Documented by: JERRI Loperamide HCl (Loperamide Hcl 2 Mg Capsule) 2 mg PO Q6H PRN PRN Reason: Diarrhea Methylprednisolone Sodium Succinate (Methylprednisolone Sod Succ 40 Mg/Ml Vial) 40 mg IVPUSH Q8H [facility] Last Admin: 06/26/21 05:51 Dose: 40 mg Documented by: MICHAEL Montelukast Sodium (Montelukast Sodium 10 Mg Tablet) 10 mg PO BEDTIME [facility] Last Admin: 06/25/21 21:17 Dose: 10 mg Documented by: MICHAEL Morphine Sulfate (Morphine Sulfate Er 30 Mg Tablet.Er) 30 mg PO Q12H [facility] Last Admin: 06/26/21 08:15 Dose: 30 mg Documented by: JERRI Omeprazole (Omeprazole 20 Mg Capsule.Dr) 20 mg PO DAILY@0630 [facility] Last Admin: 06/26/21 05:52 Dose: 20 mg Documented by: MICHAEL Ondansetron HCl (Ondansetron Hcl 4 Mg/2 Ml Vial) 4 mg IVPUSH Q8H PRN PRN Reason: Nausea and Vomiting Pharmacy Consult (Consult Rx Perform Med Rec) 1 each MISCELLANE ONCE PRN PRN Reason: Consult order Pravastatin Sodium (Pravastatin Sodium 40 Mg Tablet) 40 mg PO BEDTIME [facility] Last Admin: 06/25/21 20:43 Dose: 40 mg Documented by: HO.NAUMOC Sodium Chloride (0.9 % Sodium Chloride Flush 3 Ml Syringe) 3 ml IVFLUSH QSHIFT [facility] Last Admin: 06/26/21 09:52 Dose: 3 ml Documented by: JERRI Valsartan (Valsartan 40 Mg Tablet) 40 mg PO DAILY [facility] Last Admin: 06/26/21 08:16 Dose: 40 mg Documented by: JERRI Labs CBC & Chem 7: 06/26/21 10:30 06/26/21 10:30 Labs: Laboratory Results - last 24 hr 06/25/21 06/25/21 06/25/21 18:13 18:29 21:06 MCV MCH MCHC RDW Plt Count MPV Absolute Nucleated RBC Nucleated RBC % (auto) PT 12.5 INR 1.1 Anion Gap Estim Creat Clear Calc Estimated GFR POC Glucose 197 H 287 H Random Glucose Calcium 06/26/21 06/26/21 06/26/21 07:38 10:30 10:30 MCV 88.7 MCH 27.0 MCHC 30.5 L RDW 23.9 H Plt Count 284 MPV 9.3 L Absolute Nucleated RBC 0.000 Nucleated RBC % (auto) 0.0 PT INR Anion Gap 13 Estim Creat Clear Calc 74.5 Estimated GFR > 60 POC Glucose 127 H Random Glucose 170 H Calcium 9.3 D 06/26/21 11:32 MCV MCH MCHC RDW Plt Count MPV Absolute Nucleated RBC Nucleated RBC % (auto) PT INR Anion Gap Estim Creat Clear Calc Estimated GFR POC Glucose 161 H Random Glucose Calcium Microbiology Microbiology Results: Microbiology 06/24/21 15:13 Blood Culture - Preliminary Blood - Venous No growth after 24 hours. 06/24/21 15:13 Blood Culture - Preliminary Blood - Venous No growth after 24 hours. Assessment and Plan (1) COPD exacerbation: Status: Resolved (2) Community acquired pneumonia: Status: Acute Plan This is an 81-year-old female with history of COPD, chronic respiratory failure on 2 L of home oxygen, metastatic lung cancer currently undergoing chemotherapy, diabetes, hypertension, chronic lower extremity leg wounds followed by the wound clinic brought to the emergency department for shortness of breath found to have respiratory failure Acute on chronic respiratory failure with hypoxia. More hypoxic today but patient declining to wear high-flow oxygen Respiratory able to place oxygen dependent and OxyMask 15 L Broad differential at this point including inflammatory versus infectious versus chemo related fibrosis versus COPD continue IV Solu-Medrol, ceftriaxone, scheduled and p.r.n. breathing treatments pulmonology following recommend adding viral panel, urine Legionella and IgE Chronic Lower extremity DVT Continue therapeutic Lovenox Diabetes Hold metformin SSI, pocs Chronic pain Continue home medications Hyperlipidemia Continue statin Hypertension Arb non formulary convert to formulary equivalent DVT prophylaxis-therapeutic Lovenox Code status DNR/DNI Healthcare proxy-son Attending physician Dr. Gerber Patient requires continued hospitalization for treatment with high oxygen demand, IV antibiotics and IV steroids. Quality Stroke Does the patient have a stroke diagnosis?: No VTE Prior VTE?: No VTE Risk Level:: Medical - moderate - high VTE Device Contraindication: Treatment Not Indicated VTE Drug Contraindication: N/A - Med Ordered
[2021-06-26] MEDS: cefTRIAXone sodium 1 GM in 0.9 % Sodium Chloride 50 ML IV (14:53)
[2021-06-26] MEDS: LORazepam 2 MG/ML VIAL 1 MG IVPUSH (15:51)
[2021-06-26] MEDS: Morphine Sulfate 2 MG/ML CARTRIDGE IVPUSH ×2 (15:51→22:48)
[2021-06-26 17:56] LABS: Glucose, Whole Blood 180 mg/dL (60-115)
[2021-06-26] MEDS: Insulin Lispro 100 UNIT/ML 3 ML VIAL SUBCUT (18:09)
[2021-06-26 21:24] LABS: Glucose, Whole Blood 158 mg/dL (60-115)
[2021-06-26] MEDS: Pravastatin Sodium 40 MG TABLET PO (21:26)
[2021-06-26] MEDS: Insulin Glargine,Hum.rec.anlog 100 UNIT/ML 10 ML VIAL 20 UNIT SUBCUT (21:27)
[2021-06-26] MEDS: Montelukast Sodium 10 MG TABLET PO (21:40)
[2021-06-27] VITALS (9 sets, daily range): BP systolic 122–174; BP diastolic 53–66; PULSE 54–97; RESP 17–22; TEMP 36.2–36.7; O2SAT 80–96
--- NOTE | 2021-06-27 | ECG_ITS ---
Test Reason : repeat/rhythem change Blood Pressure : / mmHG Vent. Rate : 090 BPM Atrial Rate : 090 BPM P-R Int : 180 ms QRS Dur : 084 ms QT Int : 350 ms P-R-T Axes : 053 019 100 degrees QTc Int : 428 ms Normal sinus rhythm Inferior-posterior infarct , possibly acute Lateral injury pattern ACUTE DE / STEMI Consider right ventricular involvement in acute inferior infarct Abnormal ECG When compared with ECG of 24-JUN-2021 16:42, Significant changes have occurred Referred By: Wilfrido Magallanes Electronically Signed By:Edd Sheppard
[2021-06-27] MEDS: methylPREDNISolone Sod Succ 40 MG/ML VIAL IVPUSH (05:54)
[2021-06-27] MEDS: Omeprazole 20 MG CAPSULE.DR PO (05:54)
[2021-06-27 07:46] LABS: Glucose, Whole Blood 135 mg/dL (60-115)
[2021-06-27] MEDS: Albuterol/Iprat 2.5/0.5MG 3 ML AMPUL.NEB INHALE ×3 (08:00→19:39)
[2021-06-27] MEDS: Valsartan 40 MG TABLET PO (09:29)
[2021-06-27] MEDS: vancomycin HCL 1,250 MG in 0.9 % Sodium Chloride 250 ML 166.67 MG IV (09:29)
[2021-06-27] MEDS: Morphine Sulfate ER 30 MG TABLET.ER PO ×2 (09:29→20:18)
[2021-06-27] MEDS: Escitalopram Oxalate 20 MG TABLET PO (09:29)
[2021-06-27] MEDS: Enoxaparin Sodium 100 MG/ML SYRINGE SUBCUT ×2 (09:29→21:43)
[2021-06-27] MEDS: Ammonium Lactate 12 % Cream 140 GM TUBE 1 APPL TOPICAL (09:30)
--- NOTE | 2021-06-27 09:40 | P.CDIC_ITS ---
CDI Concurrent Query Documentation Clarification: PHYSICIAN'S DOCUMENTATION REQUEST Date of Query: 06/27/21 0940 Patient Name: Jacquie Denney Admit Date: 06/24/21 Dear Doctor, A review of the medical record indicates additional documentation may be needed. Please review below and update the documentation accordingly. Risk Factors/Clinical Indicators/Treatments BMI 36.9 5' 4 in height If possible, please provide an associated diagnosis related to the abnormal BMI, such as: For a BMI >= 35 * Overweight * Obesity * Due to excess calories * Drug induced * Due to other cause * Severe or Morbid Obesity * With alveolar hypoventilation * Without alveolar hypoventilation Or: * BMI is not significant * Other (please specify) * Unable to determine Use of terms such as suspected, likely, concern for, or probable (associated with a specific diagnosis that is being evaluated, monitored, or treated as if it exists) are acceptable and can be coded in the inpatient setting, when documented at the time of discharge. Thank you, Mera Nunez [facility], CDIS Extension: [phone] Please use your independent medical judgment in providing your response. THIS QUERY IS PART OF THE PERMANENT MEDICAL RECORD Provider Response: Other Other Diagnosis: unable to determine
--- NOTE | 2021-06-27 09:40 | MHC.CDI.CONC ---
CDI Concurrent Query Documentation Clarification: PHYSICIAN'S DOCUMENTATION REQUEST Date of Query: 06/27/21 0940 Patient Name: Jacquie Denney Admit Date: 06/24/21 Dear Doctor, A review of the medical record indicates additional documentation may be needed. Please review below and update the documentation accordingly. Risk Factors/Clinical Indicators/Treatments BMI 36.9 5' 4 in height If possible, please provide an associated diagnosis related to the abnormal BMI, such as: For a BMI >= 35 Overweight Obesity Due to excess calories Drug induced Due to other cause Severe or Morbid Obesity With alveolar hypoventilation Without alveolar hypoventilation Or: BMI is not significant Other (please specify) Unable to determine Use of terms such as suspected, likely, concern for, or probable (associated with a specific diagnosis that is being evaluated, monitored, or treated as if it exists) are acceptable and can be coded in the inpatient setting, when documented at the time of discharge. Thank you, Mera Nunez [facility], CDIS Extension: [phone] Please use your independent medical judgment in providing your response. THIS QUERY IS PART OF THE PERMANENT MEDICAL RECORD Provider Response: Other Other Diagnosis: unable to determine
[2021-06-27 10:08] LABS: Hematocrit 34.6 % (37.0-47.0); Hemoglobin 10.6 g/dl (12.0-16.0); Mean Corpuscular HGB Conc 30.6 g/dl (31.0-35.0); Mean Corpuscular Hemoglobin 26.8 pg (27.0-33.0); Mean Corpuscular Volume 87.4 fL (80.0-98.0); Mean Platelet Volume 8.7 fL (9.4-12.3); Platelet Count 298 X10*3/uL (160-400); Red Blood Count 3.96 X10*6/uL (4.20-5.50); Red Cell Distribution Width 23.3 % (11.0-16.0)
--- NOTE | 2021-06-27 10:14 | PC.NURSE ---
Patient helped to bedside commode walker used for balance. Patient voided 200cc dark yellow urine mixed with small amount of loose brown stool. Unable to obtain urine specimen at this time due to contamination of stool. Back to bed positioned for comfort
[2021-06-27 10:23] LABS: Anion Gap 13 (12-20); Blood Urea Nitrogen 12 mg/dL (9-16); Calcium 9.6 mg/dL (8.4-10.2); Carbon Dioxide 24 mmol/L (22-29); Chloride 100 mmol/L (96-108); Creatinine Clr Calc Pharmacy 75.7; Estimated Glomerular Filt Rate > 60; Glucose Random 125 mg/dL (60-115); Potassium 4.6 mmol/L (3.3-5.1); Sodium 132 mmol/L (135-145)
[2021-06-27 10:31] LABS: B Type Natriuretic Peptide 720 pg/mL (<100)
--- NOTE | 2021-06-27 11:13 | PC.NURSE ---
Pt is sleeping but awakens to name, oriented x4, lungs with course crackles and wheezes throughout. Pt on oxymask as well as optimizer pendant at this time. O2 sat dropped to 50% with movement to the commode, upon resting, O2 works back up into the low 90's. Pt states she feels worse than when she came in, medicated as per [facility] orders including pain mediation. ICU med at bedside for eval at this time. Plan for IV lasix and jovel placement per ICU MD. Cream applied to BLE, RLE dark in appearance, dartker than normal per patient. Call so within reach, will continue to monitor.
--- NOTE | 2021-06-27 11:17 | HO.PM.IMPN ---
Subjective Subjective Date of Service: 06/27/21 Review of Systems Follow up? respiratory failure Not wanting to wear high-flow oxygen, agreeing to wear mask and nasal cannula Denies chest pain, reports shortness of breath and longer time recovering do taken off oxygen mask Physical Exam Vital Signs: Vital Signs: Last Vital Signs Temp 98.1 F 06/27/21 09:06 Pulse 64 06/27/21 09:06 Resp 22 H 06/27/21 09:06 BP 174/64 H 06/27/21 09:06 Pulse Ox 93 06/27/21 09:06 Oxygen Flow Rate 8 06/24/21 13:06 BMI result Body Mass Index 36.9 Appearing inresp distress after coughing lung sounds wheezing heart regular rate rhythm, clear S1, S2 positive bowel sounds, abdomen is soft, nontender neuro patient is alert x3, no focal deficits Objective Data Active Medications Acetaminophen (Acetaminophen 325 Mg Tablet) 650 mg PO Q6H PRN PRN Reason: Pain, Mild (Pain Scale 1-3) Albuterol Sulfate (Albuterol Sulfate (0.083%) 2.5 Mg/3 Ml Vial.Neb) 2.5 mg INHALE RQ4H PRN PRN Reason: shortness of breath Albuterol/Ipratropium (Albuterol/Iprat 2.5/0.5mg 3 Ml Ampul.Neb) 3 ml INHALE RQ6H WHILE AWAKE [facility] Last Admin: 06/27/21 08:00 Dose: 3 ml Documented by: SONAM Dextrose (Dextrose 50 % 25 Gm/50 Ml Vial) 25 gm IVPUSH Q15M PRN; Protocol PRN Reason: per Hypoglycemia Standing Ord. Docusate Sodium (Docusate Sodium 100 Mg Capsule) 100 mg PO DAILY PRN PRN Reason: Constipation Enoxaparin Sodium (Enoxaparin Sodium 100 Mg/Ml Syringe) 100 mg SUBCUT Q12H [facility] Last Admin: 06/27/21 09:29 Dose: 100 mg Documented by: SANAM Escitalopram Oxalate (Escitalopram Oxalate 20 Mg Tablet) 20 mg PO DAILY [facility] Last Admin: 06/27/21 09:29 Dose: 20 mg Documented by: SANAM Glucose (Glucose Gel 15 Gm Gel..Gram.) 15 gm PO Q15M PRN; Protocol PRN Reason: per Hypoglycemia Standing Ord. Piperacillin Sod/Tazobactam (Sod 3.375 gm/ Sodium Chloride) 50 mls @ 100 mls/hr IV Q6H [facility] Insulin Glargine (Insulin Glargine,Hum.Rec.Anlog 100 Unit/Ml 10 Ml Vial) 20 unit SUBCUT BEDTIME [facility] Last Admin: 06/26/21 21:27 Dose: 20 unit Documented by: MARIELA Insulin Human Lispro (Insulin Lispro 100 Unit/Ml 3 Ml Vial) 0 unit SUBCUT QIDACHS [facility]; Protocol Last Admin: 06/27/21 09:28 Dose: Not Given Documented by: SANAM Non-Admin Reason: No Insulin Coverage Lactic Acid (Ammonium Lactate 12 % Cream 140 Gm Tube) 1 appl TOPICAL BID [facility]; Protocol Last Admin: 06/27/21 09:30 Dose: 1 appl Documented by: SANAM Loperamide HCl (Loperamide Hcl 2 Mg Capsule) 2 mg PO Q6H PRN PRN Reason: Diarrhea Lorazepam (Lorazepam 2 Mg/Ml Vial) 1 mg IVPUSH Q4H PRN PRN Reason: anxiety Last Admin: 06/26/21 15:51 Dose: 1 mg Documented by: MARIELA Methylprednisolone Sodium Succinate (Methylprednisolone Sod Succ 40 Mg/Ml Vial) 40 mg IVPUSH Q8H [facility] Last Admin: 06/27/21 05:54 Dose: 40 mg Documented by: SANAM Montelukast Sodium (Montelukast Sodium 10 Mg Tablet) 10 mg PO BEDTIME [facility] Last Admin: 06/26/21 21:40 Dose: 10 mg Documented by: MARIELA Morphine Sulfate (Morphine Sulfate Er 30 Mg Tablet.Er) 30 mg PO Q12H [facility] Last Admin: 06/27/21 09:29 Dose: 30 mg Documented by: SANAM Morphine Sulfate (Morphine Sulfate 2 Mg/Ml Cartridge) 2 mg IVPUSH Q4H PRN; Protocol PRN Reason: Pain, Mild (Pain Scale 1-3) Last Admin: 06/26/21 22:48 Dose: 2 mg Documented by: MARIELA Omeprazole (Omeprazole 20 Mg Capsule.Dr) 20 mg PO DAILY@0630 [facility] Last Admin: 06/27/21 05:54 Dose: 20 mg Documented by: SANAM Ondansetron HCl (Ondansetron Hcl 4 Mg/2 Ml Vial) 4 mg IVPUSH Q8H PRN PRN Reason: Nausea and Vomiting Pharmacy Consult (Consult Rx Perform Med Rec) 1 each MISCELLANE ONCE PRN PRN Reason: Consult order Pharmacy Consult (Consult Rx Vancomycin Dosing) 1 each MISCELLANE DAILY PRN PRN Reason: Consult order Pravastatin Sodium (Pravastatin Sodium 40 Mg Tablet) 40 mg PO BEDTIME [facility] Last Admin: 06/26/21 21:26 Dose: 40 mg Documented by: MARIELA Sodium Chloride (0.9 % Sodium Chloride Flush 3 Ml Syringe) 3 ml IVFLUSH QSHIFT [facility] Last Admin: 06/27/21 09:29 Dose: Not Given Documented by: SANAM Non-Admin Reason: IV Running Valsartan (Valsartan 40 Mg Tablet) 40 mg PO DAILY [facility] Last Admin: 06/27/21 09:29 Dose: 40 mg Documented by: SANAM Labs CBC & Chem 7: 06/27/21 09:54 06/27/21 09:54 Labs: Laboratory Results - last 24 hr 06/26/21 06/26/21 06/26/21 11:32 17:51 21:15 MCV MCH MCHC RDW Plt Count MPV Absolute Nucleated RBC Nucleated RBC % (auto) Anion Gap Estim Creat Clear Calc Estimated GFR POC Glucose 161 H 180 H 158 H Random Glucose Calcium B-Natriuretic Peptide 06/27/21 06/27/21 06/27/21 07:36 09:54 09:54 MCV 87.4 MCH 26.8 L MCHC 30.6 L RDW 23.3 H Plt Count 298 MPV 8.7 L Absolute Nucleated RBC 0.000 Nucleated RBC % (auto) 0.0 Anion Gap 13 Estim Creat Clear Calc 75.7 Estimated GFR > 60 POC Glucose 135 H Random Glucose 125 H Calcium 9.6 B-Natriuretic Peptide 06/27/21 09:54 MCV MCH MCHC RDW Plt Count MPV Absolute Nucleated RBC Nucleated RBC % (auto) Anion Gap Estim Creat Clear Calc Estimated GFR POC Glucose Random Glucose Calcium B-Natriuretic Peptide 720 H Microbiology Microbiology Results: Microbiology 06/24/21 15:13 Blood Culture - Preliminary Blood - Venous No growth after 48 hours. 06/24/21 15:13 Blood Culture - Preliminary Blood - Venous No growth after 48 hours. Assessment and Plan (1) COPD exacerbation: Status: Resolved (2) Community acquired pneumonia: Status: Acute Plan This is an 81-year-old female with history of COPD, chronic respiratory failure on 2 L of home oxygen, metastatic lung cancer currently undergoing chemotherapy, diabetes, hypertension, chronic lower extremity leg wounds followed by the wound clinic brought to the emergency department for shortness of breath found to have respiratory failure Acute on chronic respiratory failure with hypoxia. More hypoxic today but patient declining to wear high-flow oxygen even BiPAP worsening respiratory status oxygen saturations down as low as 60% after coughing fit Change antibiotics to vancomycin and Zosyn. Broad differential at this point including inflammatory versus infectious versus chemo related fibrosis versus COPD continue IV Solu-Medrol, scheduled and p.r.n. breathing treatments viral panel, urine Legionella and IgE pending Elevated BNP, unspecified heart failure Lasix IV added Echo pending place jovel catheter + 2.5 liters Chronic Lower extremity DVT Continue therapeutic Lovenox Diabetes Hold metformin SSI, pocs Chronic pain Continue home medications Hyperlipidemia Continue statin Hypertension Arb non formulary convert to formulary equivalent DVT prophylaxis-therapeutic Lovenox Code status DNR/DNI Healthcare proxy-son Attending physician Dr. Roblero Patient requires continued hospitalization for treatment with high oxygen demand, IV antibiotics and IV steroids. Discussed case with her son regarding poor prognosis and patients decline for high flow oxygen and bipap Quality Stroke Does the patient have a stroke diagnosis?: No VTE Prior VTE?: No VTE Risk Level:: Medical - moderate - high VTE Device Contraindication: Treatment Not Indicated VTE Drug Contraindication: N/A - Med Ordered
--- NOTE | 2021-06-27 11:40 | P.PNPL_ITS ---
Subjective Subjective Date of Service: 06/27/21 Interval history: 81-year-old lady with underlying metastatic lung cancer, COPD, supplemental oxygen 2 L dependent admitted with worsening dyspnea now requiring high-flow nasal cannula at 60% 40 L. Initially empirically treated with broad-spectrum antibiotics and systemic glucocorticoids. BNP elevated, lower extremity edema, CT chest with multifocal ground-glass infiltrates. Objective Data Labs CBC & Chem 7: 06/27/21 09:54 06/27/21 09:54 Labs: Laboratory Results - last 24 hr 06/26/21 06/26/21 06/27/21 17:51 21:15 07:36 WBC RBC Hgb Hct MCV MCH MCHC RDW Plt Count MPV Absolute Nucleated RBC Nucleated RBC % (auto) Sodium Potassium Chloride Carbon Dioxide Anion Gap BUN Creatinine Estim Creat Clear Calc Estimated GFR POC Glucose 180 H 158 H 135 H Random Glucose Calcium B-Natriuretic Peptide 06/27/21 06/27/21 06/27/21 09:54 09:54 09:54 WBC 14.0 H RBC 3.96 L Hgb 10.6 L Hct 34.6 L MCV 87.4 MCH 26.8 L MCHC 30.6 L RDW 23.3 H Plt Count 298 MPV 8.7 L Absolute Nucleated RBC 0.000 Nucleated RBC % (auto) 0.0 Sodium 132 L Potassium 4.6 Chloride 100 Carbon Dioxide 24 Anion Gap 13 BUN 12 Creatinine 0.65 Estim Creat Clear Calc 75.7 Estimated GFR > 60 POC Glucose Random Glucose 125 H Calcium 9.6 B-Natriuretic Peptide 720 H Microbiology Microbiology Results: Microbiology 06/24/21 15:13 Blood - Venous Blood Culture - Preliminary No growth after 48 hours. 06/24/21 15:13 Blood - Venous Blood Culture - Preliminary No growth after 48 hours. Review of Systems Cardiovascular: Reports leg edema, Reports dyspnea and Reports orthopnea Respiratory: Reports dyspnea Physical Exam Vital Signs: Vital Signs: Last Vital Signs Temp 98.1 F 06/27/21 09:06 Pulse 64 06/27/21 09:06 Resp 22 H 06/27/21 09:06 BP 174/64 H 06/27/21 09:06 Pulse Ox 93 06/27/21 09:06 Oxygen Flow Rate 8 06/24/21 13:06 BMI result Body Mass Index 36.9 Const: General: no acute distress, alert and awake Eyes: Sclerae: sclerae normal EOM: EOMs intact bilaterally Neck: Neck: Yes no lymphadenopathy, Yes trachea midline and Yes supple Resp: Effort & Inspection: normal respiratory effort and no respiratory distress Auscultation: crackles ( Diffuse bilateral) Cardio: Rate: regular rate Rhythm: regular rhythm Heart sounds: no gallops, no murmurs and no rubs GI: Palpation (GI): Soft to palpation and Other GI palpation findings present ( Nontender) Auscultation: normal bowel sounds Extrem: General: No clubbing, No cyanosis and Yes pedal edema ( 1+ bilateral) Procedures Date of Service Date of Service: 06/27/21 Assessment and Plan Assessment and plan (1) Acute on chronic respiratory failure with hypoxemia: Status: Acute (2) Congestive heart failure: Status: Acute (3) Small cell lung cancer: Status: Acute Plan Impression: 81-year-old lady with underlying metastatic colon cancer, 2 L supplemental oxygen dependent COPD admitted with worsening hypoxemia now requiring high-flow nasal cannula up to 60% 40L. CT angio chest imaging /results reviewed. May have multiple etiologies, though pulmonary edema appears to be more likely. Recommendation: Continue bronchodilators. Discontinue systemic glu cocorticoids. Discontinue broad-spectrum antibiotics. Start diuresis. Time Spent With Patient Time: Total time spent is greater than 50% in coordination of care (as documented) at patient's floor/unit and/or counseling patient: Time with patient: 25 - 35 minutes Progress Note: Quality Stroke Does the patient have a stroke diagnosis?: No
[2021-06-27 11:41] LABS: COVID-19 Test Negative (Negative); IDNOW Serial# 16C4AD1C
[2021-06-27 12:41] LABS: Adenovirus PCR Not Detected (Not Detect.); Bordetella parapertussis PCR Not Detected (Not Detect.); Bordetella pertussis PCR Not Detected (Not Detect.); Chlamydia pneumoniae PCR Not Detected (Not Detect.); Coronavirus 229E PCR Not Detected (Not Detect.); Coronavirus HKU1 PCR Not Detected (Not Detect.); Coronavirus NL63 PCR Not Detected (Not Detect.); Coronavirus OC43 PCR Not Detected (Not Detect.); Human metapneumovirus PCR Not Detected (Not Detect.); Influenza A PCR Not Detected (Not Detect.); Influenza B PCR Not Detected (Not Detect.); Mycoplasma pneumoniae PCR Not Detected (Not Detect.); Parainfluenza 1 PCR Not Detected (Not Detect.); Parainfluenza 2 PCR Not Detected (Not Detect.); Parainfluenza 3 PCR Not Detected (Not Detect.); Parainfluenza 4 PCR Not Detected (Not Detect.); Rhino/Enterovirus PCR Not Detected (Not Detect.); SARS-CoV-2 PCR Not Detected (Not Detect.)
[2021-06-27 12:42] LABS: RSV PCR Not Detected (Not Detect.)
[2021-06-27] MEDS: Piperacillin Sodium/Tazobactam 3.375 GM in 0.9 % Sodium Chloride 50 ML IV ×3 (12:45→21:39)
[2021-06-27] MEDS: Furosemide 40 MG/4 ML VIAL IVPUSH ×2 (12:46→22:14)
[2021-06-27 13:15] LABS: Glucose, Whole Blood 134 mg/dL (60-115)
--- NOTE | 2021-06-27 14:28 | HE.PHANOTE ---
Per Jamar cont zosyn for now, if diuresis helps, may dc zosyn, unknown if potential pneumonia.
[2021-06-27] MEDS: Albumin Human 25 % 100 ML IV ×2 (14:32→18:34)
--- NOTE | 2021-06-27 17:24 | PC.NURSE ---
Pt and granddaughter updated on POC, including confirming DNR/DNI status, pt requesting hospice consult if the new antibiotics and IV lasix don't work. Kaylynn made aware and put in a consult for hospice, pt and granddaughter are aware at this time. Call so within reach, will continue to monitor.
[2021-06-27] MEDS: Morphine Sulfate 2 MG/ML CARTRIDGE IVPUSH (18:37)
[2021-06-27 18:38] LABS: Glucose, Whole Blood 112 mg/dL (60-115)
[2021-06-27] MEDS: Acetaminophen 325 MG TABLET 650 MG PO (19:54)
[2021-06-27] MEDS: LORazepam 2 MG/ML VIAL 1 MG IVPUSH (21:07)
[2021-06-27 21:26] LABS: Immunoglobulin E 10 kU/L (<OR=114)
[2021-06-27] MEDS: Morphine Sulfate 4 MG/ML CARTRIDGE IVPUSH (21:40)
[2021-06-27] MEDS: Pravastatin Sodium 40 MG TABLET PO (21:44)
[2021-06-27] MEDS: Insulin Glargine,Hum.rec.anlog 100 UNIT/ML 10 ML VIAL 20 UNIT SUBCUT (21:45)
[2021-06-27] MEDS: Albuterol Sulfate (0.083%) 2.5 MG/3 ML VIAL.NEB INHALE (21:48)
[2021-06-27] MEDS: Nitroglycerin 0.4 MG TAB.SUBL SUBLINGUAL ×2 (21:50→22:12)
[2021-06-27] MEDS: Ticagrelor 90 MG TABLET 180 MG PO (21:50)
[2021-06-27 22:01] LABS: Anion Gap 17 (12-20); Blood Urea Nitrogen 14 mg/dL (9-16); Calcium 9.5 mg/dL (8.4-10.2); Carbon Dioxide 24 mmol/L (22-29); Chloride 95 mmol/L (96-108); Creatinine Clr Calc Pharmacy 65.5; Estimated Glomerular Filt Rate > 60; Glucose Random 150 mg/dL (60-115); Magnesium 1.6 mg/dL (1.6-2.6); Potassium 3.6 mmol/L (3.3-5.1); Sodium 132 mmol/L (135-145)
[2021-06-27 22:09] LABS: Troponin-I High Sensitivity 170.5 ng/L (<3.5-17.0)
[2021-06-27] MEDS: Heparin Sodium,Porcine/1/2NS 25,000 UNIT/250 ML IV.SOLN 10 UNIT IVCONT (22:10)
[2021-06-27 22:12] LABS: Glucose, Whole Blood 133 mg/dL (60-115)
[2021-06-27] MEDS: Potassium Chloride ER 20 MEQ TAB.ER.PRT 40 MEQ PO (22:12)
[2021-06-27] MEDS: Magnesium Sulfate/H2O 2 GM/50 ML PIGGYBACK IV (22:13)
[2021-06-27] MEDS: Aspirin Enteric Coated 325 MG TABLET.DR PO (22:16)
[2021-06-27] MEDS: Heparin Sodium,Porcine 5,000 UNIT/ML VIAL 7100 UNIT IVPUSH (22:24)
--- NOTE | 2021-06-27 22:32 | PC.NURSE ---
Changes on the heart monitor noted with elevated ST . pt assessed , denied chest pain at first then stated that she does have a chest pain to her whole chest. BP 159/60 hr 90, RR 35, oxygen sat dropped to 83 on oxymizer and face mask. Pt put on nonreabreather. EKG confirmed NSTEMI, pt medicated with NITROglicerin, Morphine 4 mg , Brilinta, lasix 40 mgIV, ASA , Magnesium 2 gram iv, Heparin drip started , bolus given prior the drip. Pt transfered to [facility] to the labor relations teacher, report called by primary RN Noemy
--- NOTE | 2021-06-27 23:23 | PC.NURSE ---
Around 19:50 pt c/o face pain from her mask and then stated it was all over pain . Tylenol given. Pt became anxious and sob, pulling mask off and stating she didn't want to do this. Ativan 1 mg IV given with good effect. Around 21:20, Pt found to have ST elevation and had a 7beat run VT. Dr Magallanes notified. Dr ordered labs and ekg. Morphine given via IV. At 21:45 pt then c/o chest pain. Trop elevated. Pt received ASA, Brilinta, Lasix, 2 SL nitro's. At 2210, pt was given heparin bolus 7,100 units. Heparin drip started at 2212 at 10ml/hr. See MAR for meds, dosages and times. F/C patent with clear/yellow urine. HS POC 133. Lantus given as ordered. IV placed in right arm. EMS here to transport pt to [facility] lab scientist at 222:18. I called report to Nidia in lab scientist at ([phone])around 22:36. Dr Magallanes called both the patients granddaughter and patients son with update.
--- NOTE | 2021-06-27 23:27 | P.EN_ITS ---
Event Note Date of Service: 06/27/21 Event Note: Patient noted to have ST elevation on machine spreader. patient initially did not complain of chest pain but when asked specifically she did admit to having chest pain. chest pain midsternal. EKG done showed STEMI, patient was given nitro, morphine, started on heparin drip, Brilinta 180 mg, as well as aspirin and transferred to [facility] clinical laboratory medical director under the care of of note patient was hypoxic, was placed on high-flow with oxygen around 92% on transfer. Patient hemodynamically stable on transfer. Called son Jarrett as well as granddaughter Candace and discuss the case with them And informed them of her current status and her transferred to [facility]
--- NOTE | 2021-08-15 16:55 | P.DS_ITS ---
DS: Providers Provider Date of Service: 06/27/21 <Kaylynn Price NP - Last Filed: 08/15/21 16:59> Date of admission: 06/24/21 18:09 <Kaylynn Price NP - Last Filed: 08/15/21 16:59> Primary care physician: Unknown Physician <Kaylynn Price NP - Last Filed: 08/15/21 16:59> Consults: 06/24/21 18:09 Consult to Pulmonology Routine Consulting Provider: Dipesh Price Reason for consultation: respiratory failure; lung ca/copd Has provider been notified: No <Kaylynn Price NP - Last Filed: 08/15/21 16:59> Attending physician on discharge: Wilfrido Magallanes <Kaylynn Price NP - Last Filed: 08/15/21 16:59> DS: Diagnosis Discharge Diagnosis (1) COPD exacerbation: Status: Resolved <Kaylynn Price NP - Last Filed: 08/15/21 16:59> (2) Community acquired pneumonia: Status: Acute <Kaylynn Price NP - Last Filed: 08/15/21 16:59> DS: Summary Hospital Course Hospital Course: HP as per admitting provider This is an 81-year-old female with history of metastatic lung cancer, COPD, respiratory failure on 2 L of home O2 sent to the emergency department by [facility] due to increasing shortness of breath.? Patient states that yesterday she was not feeling well and had decreased appetite.? Today she reports increasing shortness of breath.? She denies any associated fever, chills, cough.? No recent sick contacts on arrival in the emergency department she was significantly hypoxic with oxygen saturation in the mid 70s on 8 L.? She was briefly placed on BiPAP but able to be weaned back down to 8 L.? Unfortunately she continued to desaturate and was therefore placed on high- flow oxygen.? CTA was done which did not show any evidence of PE.? It showed broad differential including infectious versus inflammatory on verses edema.? She was treated with IV antibiotics, steroids, and breathing treatments.? Patient reports Moderna vaccination x3.? Due to severe hypoxia patient will be admitted to the hospital for further management . EVENT NOTE PER DR. WILFRIDO HULL Patient noted to have ST elevation on monitoring manager.? patient initially did not complain of chest pain but when asked specifically she did admit to having chest pain. chest pain midsternal.? EKG done showed STEMI, patient was given nitro, morphine, started on heparin drip, Brilinta 180 mg, as well as aspirin and transferred to [facility] laboratory animal care veterinarian under the care of ,of note patient was hypoxic, was placed on high-flow with oxygen around 92% on transfer. Patient hemodynamically stable on transfer. Called son Jarrett as well as granddaughter Candace and discuss the case with them ? And informed them of her current status and her transferred to [facility] Patient [place] [facility] Medical diagnosis being treated: Acute on chronic respiratory failure with hypoxia.? More hypoxic today but patient declining to wear high-flow oxygen even BiPAP worsening respiratory status oxygen saturations down as low as 60% after coughing fit Change antibiotics to vancomycin and Zosyn. Broad differential at this point including inflammatory versus infectious versus chemo related fibrosis versus COPD continue IV Solu-Medrol, scheduled and p.r.n. breathing treatments viral panel, urine Legionella and IgE pending Elevated BNP, unspecified heart failure Lasix IV added Echo pending place jovel catheter + 2.5 liters Chronic Lower extremity DVT therapeutic Lovenox Diabetes Hold metformin SSI, pocs Chronic pain Continue home medications Hyperlipidemia Continue statin Hypertension Arb non formulary convert to formulary equivalent <Kaylynn Price NP - Last Filed: 08/15/21 16:59> Time Spent with Patient Time attestation: Total time spent providing and/or coordinating discharge services: <Kaylynn Price NP - Last Filed: 08/15/21 16:59> Discharge coordination time: Greater than 30 minutes <Kaylynn Price NP - Last Filed: 08/15/21 16:59> Quality: Safe Use of Opioids Does Pt have an Active Cancer Diagnosis on the Problem List?: No <NEFTALI Johnson Last Filed: 08/15/21 16:59> Quality: Stroke Does the patient have a stroke diagnosis?: No <NEFTALI Johnson Last Filed: 08/15/21 16:59> Physical Exam Vital Signs: Vital Signs: Last Vital Signs Temp 98.1 F 06/27/21 09:06 Pulse 97 06/27/21 22:20 Resp 22 H 06/27/21 22:20 BP 122/66 06/27/21 22:20 Pulse Ox 82 L 06/27/21 22:20 Oxygen Flow Rate 8 06/24/21 13:06 BMI result Body Mass Index 36.9 <Kaylynn Price NP - Last Filed: 08/15/21 16:59> discharged by another provider <Kaylynn Price NP - Last Filed: 08/15/21 16:59> Discharge Plan Discharge Patient Disposition: [facility] <Kaylynn Price NP - Last Filed: 08/15/21 16:59> Discharge Diagnosis: STEMI <Kaylynn Price NP - Last Filed: 08/15/21 16:59> Referrals: Physician,Unknown J [Primary Care Provider] - 1 Week <Kaylynn Price NP - Last Filed: 08/15/21 16:59> Discharge Medications: Continued pravastatin 40 mg tablet 40 mg PO BEDTIME 0RF citalopram 20 mg tablet 40 mg PO DAILY 0RF pantoprazole 40 mg tablet,delayed release (DR/EC) 40 mg PO DAILY 0RF irbesartan 75 mg tablet 75 mg PO DAILY 0RF montelukast 10 mg tablet 1 tab PO BEDTIME 0RF oxybutynin chloride 5 mg tablet 1 tab PO TID PRN (Reason: URINARY SYMPTOMS) 0RF metformin 500 mg tablet extended release 24 hr 500 mg PO BID 0RF Lantus Solostar U-100 Insulin 100 unit/mL (3 mL) insulin pen 20 unit subcut BEDTIME 0RF Hold Instructions: Resume on 03/29/21. start lantus slowly with 5 units at bedtime enoxaparin 100 mg/mL syringe 100 mg subcut Q12H Qty: 60 3RF morphine [MS Contin] 30 mg tablet extended release 30 mg PO Q12H Qty: 60 0RF oxycodone 5 mg Tablet 5 mg PO Q4H PRN (Reason: Pain) Qty: 60 0RF loperamide [Imodium A-D] 2 mg Capsule 2 mg PO Q6H PRN (Reason: Diarrhea) Qty: 60 4RF ammonium lactate 12 % cream 1 applic topical BID 0RF Rx Instructions: apply to legs sulfamethoxazole-trimethoprim 800-160 mg tablet 1 tab PO BID 0RF meclizine 25 mg tablet 1 - 2 tab PO Q6-8H PRN (Reason: Dizziness) 0RF Combivent Respimat 20-100 mcg/actuation mist 1 puff inhalation QID 0RF Bevespi Aerosphere 9-4.8 mcg HFA aerosol inhaler 2 puff inhalation BID 0RF Calcium 600 mg +D 800 iu 1 tab PO BID 0RF (DME) eli.stocking,knee,reg,xlrg Misc See Rx Instructions .Route Qty: 12 0RF Rx Instructions: As directed <Kaylynn Price NP - Last Filed: 08/15/21 16:59> Discharge Orders: Discharge Order (Routine); Ordered 06/27/21 Ordered By: Wilfrido Magallanes <Kaylynn Price NP - Last Filed: 08/15/21 16:59> Activity on Discharge: As tolerated <Kaylynn Price NP - Last Filed: 08/15/21 16:59> Stand Alone Forms: Patient Portal Discharge page <Kaylynn Price NP - Last Filed: 08/15/21 16:59> Care Plan Goals: TRansfer to [facility] for Cath <Kaylynn Price NP - Last Filed: 08/15/21 16:59> Health Concerns: STEMI, Cardiac arrest <Kaylynn Price NP - Last Filed: 08/15/21 16:59> Plan of Treatment: Cath <Kaylynn Price NP - Last Filed: 08/15/21 16:59> Assessment: see above <Kaylynn Price NP - Last Filed: 08/15/21 16:59> Discharge Date/Time: 06/28/21 07:05 <Kaylynn Price NP - Last Filed: 08/15/21 16:59>
== END 2021-06-28 07:05 | disposition short-term general hospital (02) | DRG 193 ==
LOC: HO.ED 15:08 → HO.EDOVER 18:27
PROVIDERS: Hospitalist; Internal Medicine; Admitting Provider Physician Assistant Medical; Emergency Provider Emergency Medicine; Visit Provider Nurse Practitioner Acute Care
DX: J18.9 Pneumonia, unspecified organism (principal); J96.21 Acute and chronic respiratory failure with hypoxia; I21.3 ST elevation (STEMI) myocardial infarction of unspecified site; C34.90 Malignant neoplasm of unspecified part of unspecified bronchus or lung; I82.509 Chronic embolism and thrombosis of unspecified deep veins of unspecified lower extremity; I11.0 Hypertensive heart disease with heart failure; I50.9 Heart failure, unspecified; J43.9 Emphysema, unspecified; Z20.822 Contact with and (suspected) exposure to COVID-19; Z66 Do not resuscitate; G89.29 Other chronic pain; Z86.718 Personal history of other venous thrombosis and embolism; Z99.81 Dependence on supplemental oxygen; Z87.891 Personal history of nicotine dependence; Z79.4 Long term (current) use of insulin; Z79.84 Long term (current) use of oral hypoglycemic drugs; Z79.899 Other long term (current) drug therapy
CPT/HCPCS: 36415; 71045; 71275; 80048; 80076; 82785; 82947; 83605; 83735; 83880; 84484; 85025; 85027; 85379; 85610; 85730; 87040; 87633; 87635; 93005; 94640; 94660; 96361; 96365; 96367; 96375; 99285; 99291; J0456; J0696; J1650; J1940; J2060; J2270; J2543; J2920; J2930; J3370; J3475; P9047; Q9967